=== PATIENT | male | born 1975 | race Caucasian/White ===

== ENCOUNTER 2018-04-19 10:50 | Outpatient (CLI) | payer OTHER, SELFPAY ==
[2018-04-19 11:46] LABS: INR 1.8 (1.0-3.5)
[2018-04-19 12:40] LABS: ALT 25 U/L (12-78); AST 59 U/L (15-37); Albumin 2.5 g/dL (3.4-5.0); Alkaline Phosphatase 209 U/L (46-116); Anion Gap 5.8 mmol/L (3-11); BUN 8 mg/dL (7-18); Bilirubin, Total 7.1 mg/dL (0.2-1.0); CO2 29.2 mmol/L (21.0-32.0); CREATININE 0.89 mg/dL (0.70-1.30); Calcium 8.6 mg/dL (8.5-10.1); Chloride 106 mmol/L (98-107); Glucose 118 mg/dL (70-100); Potassium 4.2 mmol/L (3.5-5.1); Sodium 141 mmol/L (136-145); Total Protein 6.2 g/dL (6.4-8.2)
[2018-04-21 08:43] LABS: Ethyl Glucuronide Screen, U Negative
== END 2018-04-19 11:10 ==
PROVIDERS: PCP Family Medicine; Visit Provider Family Medicine
DX: K70.30 Alcoholic cirrhosis of liver without ascites (principal); Z76.82 Awaiting organ transplant status
CPT/HCPCS: 36415; 80053; 80307; 85610

== ENCOUNTER 2018-04-26 11:49 | Outpatient (CLI) | payer OTHER, SELFPAY ==
[2018-04-26 13:23] LABS: INR 1.8 (1.0-3.5); Prothrombin Time 17.5 sec (9.3-10.8)
[2018-04-26 14:12] LABS: ALT 26 U/L (12-78); AST 60 U/L (15-37); Albumin 2.4 g/dL (3.4-5.0); Alkaline Phosphatase 193 U/L (46-116); Anion Gap 9.4 mmol/L (3-11); BUN 5 mg/dL (7-18); Bilirubin, Total 7.5 mg/dL (0.2-1.0); CO2 25.6 mmol/L (21.0-32.0); CREATININE 0.94 mg/dL (0.70-1.30); Calcium 8.5 mg/dL (8.5-10.1); Chloride 104 mmol/L (98-107); Glucose 170 mg/dL (70-100); Potassium 3.9 mmol/L (3.5-5.1); Sodium 139 mmol/L (136-145); Total Protein 6.1 g/dL (6.4-8.2)
[2018-04-27 16:08] LABS: Ethyl Glucuronide Screen, U Negative
== END 2018-04-26 12:09 ==
PROVIDERS: Nurse Practitioner Adult Health; PCP Family Medicine; Visit Provider Family Medicine
DX: K70.30 Alcoholic cirrhosis of liver without ascites (principal); Z76.82 Awaiting organ transplant status
CPT/HCPCS: 36415; 80053; 80307; 85610

== ENCOUNTER 2018-05-03 07:59 | Outpatient (CLI) | payer OTHER, SELFPAY ==
[2018-05-03 09:00] LABS: Prothrombin Time 17.3 sec (9.3-10.8)
[2018-05-03 09:17] LABS: INR 1.8 (1.0-3.5)
[2018-05-03 09:18] LABS: ALT 27 U/L (12-78); AST 54 U/L (15-37); Albumin 2.5 g/dL (3.4-5.0); Alkaline Phosphatase 209 U/L (46-116); BUN 6 mg/dL (7-18); Bilirubin, Total 7.5 mg/dL (0.2-1.0); CREATININE 0.95 mg/dL (0.70-1.30); Calcium 8.6 mg/dL (8.5-10.1); Chloride 104 mmol/L (98-107); Glucose 138 mg/dL (70-100); Potassium 3.5 mmol/L (3.5-5.1); Sodium 138 mmol/L (136-145); Total Protein 6.2 g/dL (6.4-8.2)
[2018-05-04 16:03] LABS: Ethyl Glucuronide Screen, U Negative
== END 2018-05-03 08:19 ==
PROVIDERS: Nurse Practitioner Adult Health; PCP Family Medicine; Visit Provider Family Medicine
DX: K70.30 Alcoholic cirrhosis of liver without ascites (principal); Z76.82 Awaiting organ transplant status
CPT/HCPCS: 36415; 80053; 80307; 85610

== ENCOUNTER 2018-05-10 08:01 | Outpatient (CLI) | payer OTHER, SELFPAY ==
[2018-05-10 08:46] LABS: ALT 20 U/L (12-78); AST 49 U/L (15-37); Albumin 2.3 g/dL (3.4-5.0); Alkaline Phosphatase 209 U/L (46-116); Anion Gap 7.5 mmol/L (3-11); BUN 5 mg/dL (7-18); Bilirubin, Total 6.8 mg/dL (0.2-1.0); CO2 27.5 mmol/L (21.0-32.0); CREATININE 0.92 mg/dL (0.70-1.30); Calcium 8.2 mg/dL (8.5-10.1); Chloride 105 mmol/L (98-107); Glucose 145 mg/dL (70-100); Sodium 140 mmol/L (136-145); Total Protein 6.7 g/dL (6.4-8.2)
[2018-05-10 08:47] LABS: INR 1.7 (1.0-3.5); Prothrombin Time 16.6 sec (9.3-10.8)
[2018-05-11 14:42] LABS: Ethyl Glucuronide Screen, U Negative
== END 2018-05-10 08:21 ==
PROVIDERS: PCP Family Medicine; Visit Provider Nurse Practitioner Adult Health
DX: K70.30 Alcoholic cirrhosis of liver without ascites (principal); Z76.82 Awaiting organ transplant status
CPT/HCPCS: 36415; 80053; 80307; 85610

== ENCOUNTER 2018-05-17 07:49 | Outpatient (CLI) | payer OTHER, SELFPAY ==
[2018-05-17 08:28] LABS: Prothrombin Time 16.5 sec (9.3-10.8)
[2018-05-17 08:35] LABS: INR 1.7 (1.0-3.5)
[2018-05-17 08:49] LABS: ALT 25 U/L (12-78); AST 50 U/L (15-37); Albumin 2.4 g/dL (3.4-5.0); Alkaline Phosphatase 198 U/L (46-116); BUN 8 mg/dL (7-18); Bilirubin, Total 6.8 mg/dL (0.2-1.0); CREATININE 0.97 mg/dL (0.70-1.30); Calcium 8.1 mg/dL (8.5-10.1); Chloride 105 mmol/L (98-107); Glucose 148 mg/dL (70-100); Potassium 3.6 mmol/L (3.5-5.1); Sodium 140 mmol/L (136-145); Total Protein 6.7 g/dL (6.4-8.2)
[2018-05-18 15:49] LABS: Ethyl Glucuronide Screen, U Negative
== END 2018-05-17 08:09 ==
PROVIDERS: PCP Family Medicine; Visit Provider Nurse Practitioner Adult Health
DX: K70.30 Alcoholic cirrhosis of liver without ascites (principal); Z76.82 Awaiting organ transplant status
CPT/HCPCS: 36415; 80053; 80307; 85610

== ENCOUNTER 2018-05-24 07:49 | Outpatient (CLI) | payer OTHER, SELFPAY ==
[2018-05-24 08:31] LABS: INR 1.8 (1.0-3.5); Prothrombin Time 16.8 sec (9.3-10.8)
[2018-05-24 08:32] LABS: ALT 25 U/L (12-78); AST 46 U/L (15-37); Albumin 2.4 g/dL (3.4-5.0); Alkaline Phosphatase 239 U/L (46-116); Anion Gap 6.9 mmol/L (3-11); BUN 4 mg/dL (7-18); CO2 29.1 mmol/L (21.0-32.0); CREATININE 0.94 mg/dL (0.70-1.30); Calcium 8.2 mg/dL (8.5-10.1); Chloride 105 mmol/L (98-107); Glucose 134 mg/dL (70-100); Potassium 3.6 mmol/L (3.5-5.1); Sodium 141 mmol/L (136-145); Total Protein 6.9 g/dL (6.4-8.2)
[2018-05-25 16:14] LABS: Ethyl Glucuronide Screen, U Negative
== END 2018-05-24 08:09 ==
PROVIDERS: PCP Family Medicine; Visit Provider Nurse Practitioner Adult Health
DX: K70.30 Alcoholic cirrhosis of liver without ascites (principal); Z76.82 Awaiting organ transplant status
CPT/HCPCS: 36415; 80053; 80307; 85610

== ENCOUNTER 2018-05-31 07:50 | Outpatient (CLI) | payer OTHER, SELFPAY ==
[2018-05-31 08:32] LABS: ALT 24 U/L (12-78); AST 51 U/L (15-37); Albumin 2.6 g/dL (3.4-5.0); Alkaline Phosphatase 221 U/L (46-116); Anion Gap 6.4 mmol/L (3-11); BUN 5 mg/dL (7-18); Bilirubin, Total 7.9 mg/dL (0.2-1.0); CO2 27.6 mmol/L (21.0-32.0); CREATININE 0.98 mg/dL (0.70-1.30); Calcium 8.7 mg/dL (8.5-10.1); Chloride 101 mmol/L (98-107); Glucose 210 mg/dL (70-100); Potassium 3.6 mmol/L (3.5-5.1); Sodium 135 mmol/L (136-145); Total Protein 7.3 g/dL (6.4-8.2)
[2018-05-31 08:44] LABS: INR 1.7 (1.0-3.5); Prothrombin Time 16.2 sec (9.3-10.8)
[2018-06-01 14:27] LABS: Ethyl Glucuronide Screen, U Negative
== END 2018-05-31 08:10 ==
PROVIDERS: PCP Family Medicine; Referring Provider Nurse Practitioner Adult Health; Visit Provider Legal Medicine
DX: K70.30 Alcoholic cirrhosis of liver without ascites (principal); Z76.82 Awaiting organ transplant status
CPT/HCPCS: 36415; 80053; 80307; 85610

== ENCOUNTER 2018-06-07 07:52 | Outpatient (CLI) | payer OTHER, SELFPAY ==
[2018-06-07 08:48] LABS: INR 1.7 (1.0-3.5); Prothrombin Time 16.1 sec (9.3-10.8)
[2018-06-07 09:33] LABS: ALT 23 U/L (12-78); AST 48 U/L (15-37); Albumin 2.5 g/dL (3.4-5.0); Alkaline Phosphatase 219 U/L (46-116); Anion Gap 6.7 mmol/L (3-11); BUN 5 mg/dL (7-18); Bilirubin, Total 7.5 mg/dL (0.2-1.0); CO2 27.3 mmol/L (21.0-32.0); CREATININE 1.03 mg/dL (0.70-1.30); Calcium 8.6 mg/dL (8.5-10.1); Chloride 104 mmol/L (98-107); Glucose 173 mg/dL (70-100); Potassium 3.6 mmol/L (3.5-5.1); Sodium 138 mmol/L (136-145); Total Protein 6.7 g/dL (6.4-8.2)
[2018-06-08 12:30] LABS: Ethyl Glucuronide Screen, U Negative
== END 2018-06-07 08:12 ==
LOC: NCHCO 07:52 → LBO 07:58
PROVIDERS: PCP Family Medicine; Visit Provider Nurse Practitioner Adult Health
DX: K70.30 Alcoholic cirrhosis of liver without ascites (principal); Z76.82 Awaiting organ transplant status
CPT/HCPCS: 36415; 80053; 80307; 85610

== ENCOUNTER 2018-06-15 07:56 | Outpatient (CLI) | payer OTHER, SELFPAY ==
[2018-06-15 09:18] LABS: AST 46 U/L (15-37); Albumin 2.3 g/dL (3.4-5.0); Alkaline Phosphatase 229 U/L (46-116); Anion Gap 8.9 mmol/L (3-11); BUN 5 mg/dL (7-18); Bilirubin, Total 6.8 mg/dL (0.2-1.0); CO2 26.1 mmol/L (21.0-32.0); CREATININE 0.99 mg/dL (0.70-1.30); Calcium 8.3 mg/dL (8.5-10.1); Chloride 105 mmol/L (98-107); Glucose 173 mg/dL (70-100); Potassium 3.9 mmol/L (3.5-5.1); Sodium 140 mmol/L (136-145); Total Protein 6.3 g/dL (6.4-8.2)
[2018-06-15 09:23] LABS: ALT 23 U/L (12-78)
[2018-06-16 14:23] LABS: Ethyl Glucuronide Screen, U Negative
== END 2018-06-15 08:16 ==
PROVIDERS: PCP Family Medicine; Visit Provider Nurse Practitioner Adult Health
DX: K70.30 Alcoholic cirrhosis of liver without ascites (principal); Z76.82 Awaiting organ transplant status
CPT/HCPCS: 36415; 80053; 80307

== ENCOUNTER 2018-06-21 08:08 | Outpatient (CLI) | payer OTHER, SELFPAY ==
[2018-06-21 09:13] LABS: INR 1.6 (1.0-3.5); Prothrombin Time 15.6 sec (9.3-10.8)
[2018-06-21 10:51] LABS: ALT 21 U/L (12-78); AST 42 U/L (15-37); Albumin 2.5 g/dL (3.4-5.0); Alkaline Phosphatase 216 U/L (46-116); Anion Gap 8.2 mmol/L (3-11); BUN 8 mg/dL (7-18); Bilirubin, Total 7.1 mg/dL (0.2-1.0); CO2 25.8 mmol/L (21.0-32.0); CREATININE 1.02 mg/dL (0.70-1.30); Calcium 8.6 mg/dL (8.5-10.1); Chloride 105 mmol/L (98-107); Glucose 163 mg/dL (70-100); Potassium 3.7 mmol/L (3.5-5.1); Sodium 139 mmol/L (136-145); Total Protein 6.4 g/dL (6.4-8.2)
[2018-06-22 14:58] LABS: Ethyl Glucuronide Screen, U Negative
== END 2018-06-21 08:28 ==
PROVIDERS: PCP Family Medicine; Visit Provider Nurse Practitioner Adult Health
DX: K70.30 Alcoholic cirrhosis of liver without ascites (principal); Z76.82 Awaiting organ transplant status
CPT/HCPCS: 36415; 80053; 80307; 85610

== ENCOUNTER 2018-06-28 07:52 | Outpatient (CLI) | payer OTHER, SELFPAY ==
[2018-06-28 08:41] LABS: ALT 26 U/L (12-78); AST 49 U/L (15-37); Albumin 2.5 g/dL (3.4-5.0); Alkaline Phosphatase 201 U/L (46-116); Anion Gap 7.3 mmol/L (3-11); BUN 6 mg/dL (7-18); Bilirubin, Total 6.8 mg/dL (0.2-1.0); CO2 27.7 mmol/L (21.0-32.0); CREATININE 0.95 mg/dL (0.70-1.30); Calcium 8.6 mg/dL (8.5-10.1); Chloride 105 mmol/L (98-107); Glucose 111 mg/dL (70-100); INR 1.6 (1.0-3.5); Potassium 3.8 mmol/L (3.5-5.1); Prothrombin Time 15.2 sec (9.3-10.8); Sodium 140 mmol/L (136-145); Total Protein 6.7 g/dL (6.4-8.2)
[2018-06-29 14:30] LABS: Ethyl Glucuronide Screen, U Negative
== END 2018-06-28 08:12 ==
PROVIDERS: PCP Family Medicine; Visit Provider Nurse Practitioner Adult Health
DX: K70.30 Alcoholic cirrhosis of liver without ascites (principal); Z76.82 Awaiting organ transplant status
CPT/HCPCS: 36415; 80053; 80307; 85610

== ENCOUNTER 2018-07-05 07:55 | Outpatient (CLI) | payer OTHER, SELFPAY ==
[2018-07-05 08:33] LABS: INR 1.6 (1.0-3.5); Prothrombin Time 15.7 sec (9.3-10.8)
[2018-07-05 09:30] LABS: ALT 26 U/L (12-78); AST 46 U/L (15-37); Albumin 2.6 g/dL (3.4-5.0); Alkaline Phosphatase 246 U/L (46-116); Anion Gap 9.4 mmol/L (3-11); BUN 8 mg/dL (7-18); Bilirubin, Total 5.9 mg/dL (0.2-1.0); CO2 26.6 mmol/L (21.0-32.0); CREATININE 0.95 mg/dL (0.70-1.30); Calcium 8.7 mg/dL (8.5-10.1); Chloride 104 mmol/L (98-107); Glucose 157 mg/dL (70-100); Potassium 3.8 mmol/L (3.5-5.1); Sodium 140 mmol/L (136-145); Total Protein 6.6 g/dL (6.4-8.2)
[2018-07-06 16:15] LABS: Ethyl Glucuronide Screen, U Negative
== END 2018-07-05 08:15 ==
PROVIDERS: PCP Family Medicine; Visit Provider Nurse Practitioner Adult Health
DX: K70.30 Alcoholic cirrhosis of liver without ascites (principal); Z76.82 Awaiting organ transplant status
CPT/HCPCS: 36415; 80053; 80307; 85610

== ENCOUNTER 2018-07-19 07:53 | Outpatient (CLI) | payer OTHER, SELFPAY ==
[2018-07-19 08:39] LABS: INR 1.6 (1.0-3.5)
[2018-07-19 09:33] LABS: ALT 24 U/L (12-78); AST 52 U/L (15-37); Albumin 2.6 g/dL (3.4-5.0); Alkaline Phosphatase 194 U/L (46-116); Anion Gap 10.7 mmol/L (3-11); BUN 6 mg/dL (7-18); Bilirubin, Total 8.6 mg/dL (0.2-1.0); CO2 26.3 mmol/L (21.0-32.0); CREATININE 0.93 mg/dL (0.70-1.30); Calcium 8.8 mg/dL (8.5-10.1); Chloride 104 mmol/L (98-107); Glucose 159 mg/dL (70-100); Potassium 4.1 mmol/L (3.5-5.1); Sodium 141 mmol/L (136-145); Total Protein 6.6 g/dL (6.4-8.2)
[2018-07-20 16:32] LABS: Ethyl Glucuronide Screen, U Negative
== END 2018-07-19 08:13 ==
PROVIDERS: PCP Family Medicine; Visit Provider Nurse Practitioner Adult Health
DX: K70.30 Alcoholic cirrhosis of liver without ascites (principal); Z76.82 Awaiting organ transplant status
CPT/HCPCS: 36415; 80053; 80307; 85610

== ENCOUNTER 2018-07-25 08:26 | Outpatient (CLI) | payer OTHER, SELFPAY ==
[2018-07-25 09:04] LABS: INR 1.6 (1.0-3.5); Prothrombin Time 16.3 sec (9.3-11.0)
[2018-07-25 10:54] LABS: ALT 23 U/L (12-78); AST 49 U/L (15-37); Albumin 2.5 g/dL (3.4-5.0); Alkaline Phosphatase 231 U/L (46-116); Anion Gap 7.2 mmol/L (3-11); BUN 8 mg/dL (7-18); Bilirubin, Total 5.8 mg/dL (0.2-1.0); CO2 27.8 mmol/L (21.0-32.0); CREATININE 0.94 mg/dL (0.70-1.30); Calcium 8.6 mg/dL (8.5-10.1); Chloride 105 mmol/L (98-107); Glucose 98 mg/dL (70-100); Potassium 3.9 mmol/L (3.5-5.1); Sodium 140 mmol/L (136-145); Total Protein 6.2 g/dL (6.4-8.2)
[2018-07-27 12:20] LABS: Ethyl Glucuronide Screen, U Negative
== END 2018-07-25 08:46 ==
PROVIDERS: PCP Family Medicine; Visit Provider Nurse Practitioner Adult Health
DX: K70.30 Alcoholic cirrhosis of liver without ascites (principal); Z76.82 Awaiting organ transplant status
CPT/HCPCS: 36415; 80053; 80307; 85610

== ENCOUNTER 2018-08-09 07:58 | Outpatient (CLI) | payer OTHER, SELFPAY ==
[2018-08-09 08:38] LABS: INR 1.6 (0.9-1.1); Prothrombin Time 16.1 sec (9.3-11.0)
[2018-08-09 08:39] LABS: ALT 20 U/L (12-78); AST 41 U/L (15-37); Albumin 2.4 g/dL (3.4-5.0); Alkaline Phosphatase 196 U/L (46-116); BUN 6 mg/dL (7-18); Bilirubin, Total 6.6 mg/dL (0.2-1.0); CREATININE 1.03 mg/dL (0.70-1.30); Calcium 8.6 mg/dL (8.5-10.1); Chloride 106 mmol/L (98-107); Glucose 129 mg/dL (70-100); Potassium 3.7 mmol/L (3.5-5.1); Sodium 141 mmol/L (136-145); Total Protein 6.3 g/dL (6.4-8.2)
[2018-08-10 17:16] LABS: Ethyl Glucuronide Screen, U Negative
== END 2018-08-09 08:18 ==
PROVIDERS: PCP Family Medicine; Visit Provider Nurse Practitioner Adult Health
DX: K70.30 Alcoholic cirrhosis of liver without ascites (principal); Z79.82 Long term (current) use of aspirin
CPT/HCPCS: 36415; 80053; 80307; 85610

== ENCOUNTER 2018-08-16 07:55 | Outpatient (CLI) | payer OTHER, SELFPAY ==
[2018-08-16 09:10] LABS: INR 1.7 (0.9-1.1); Prothrombin Time 17.2 sec (9.3-11.0)
[2018-08-16 09:31] LABS: ALT 21 U/L (12-78); AST 40 U/L (15-37); Albumin 2.4 g/dL (3.4-5.0); Alkaline Phosphatase 194 U/L (46-116); Anion Gap 8.2 mmol/L (3-11); BUN 7 mg/dL (7-18); CO2 26.8 mmol/L (21.0-32.0); CREATININE 1.11 mg/dL (0.70-1.30); Calcium 8.3 mg/dL (8.5-10.1); Chloride 105 mmol/L (98-107); Glucose 164 mg/dL (70-100); Potassium 3.9 mmol/L (3.5-5.1); Sodium 140 mmol/L (136-145); Total Protein 6.2 g/dL (6.4-8.2)
[2018-08-16 09:33] LABS: Bilirubin, Total 8.8 mg/dL (0.2-1.0)
[2018-08-17 16:22] LABS: Ethyl Glucuronide Screen, U Negative
== END 2018-08-16 08:15 ==
PROVIDERS: PCP Family Medicine; Visit Provider Nurse Practitioner Adult Health
DX: K70.30 Alcoholic cirrhosis of liver without ascites (principal); Z76.82 Awaiting organ transplant status
CPT/HCPCS: 36415; 80053; 80307; 85610

== ENCOUNTER 2018-08-23 11:15 | Outpatient (CLI) | payer OTHER, SELFPAY ==
[2018-08-23 12:06] LABS: INR 1.6 (0.9-1.1); Prothrombin Time 16.2 sec (9.3-11.0)
[2018-08-23 12:52] LABS: ALT 22 U/L (12-78); AST 44 U/L (15-37); Albumin 2.5 g/dL (3.4-5.0); Alkaline Phosphatase 253 U/L (46-116); Anion Gap 5.1 mmol/L (3-11); BUN 6 mg/dL (7-18); Bilirubin, Total 6.5 mg/dL (0.2-1.0); CO2 27.9 mmol/L (21.0-32.0); CREATININE 1.08 mg/dL (0.70-1.30); Calcium 8.2 mg/dL (8.5-10.1); Chloride 106 mmol/L (98-107); Glucose 100 mg/dL (70-100); Potassium 3.7 mmol/L (3.5-5.1); Sodium 139 mmol/L (136-145); Total Protein 6.5 g/dL (6.4-8.2)
[2018-08-24 15:50] LABS: Ethyl Glucuronide Screen, U Negative
== END 2018-08-23 11:35 ==
PROVIDERS: PCP Family Medicine; Visit Provider Nurse Practitioner Adult Health
DX: K70.30 Alcoholic cirrhosis of liver without ascites (principal); Z76.82 Awaiting organ transplant status
CPT/HCPCS: 36415; 80053; 80307; 85610

== ENCOUNTER 2018-08-30 01:36 | Outpatient (CLI) | payer OTHER, SELFPAY ==
[2018-08-30 08:43] LABS: INR 1.6 (0.9-1.1); Prothrombin Time 16.1 sec (9.3-11.0)
[2018-08-30 09:52] LABS: ALT 21 U/L (12-78); AST 42 U/L (15-37); Albumin 2.5 g/dL (3.4-5.0); Alkaline Phosphatase 228 U/L (46-116); Anion Gap 7.9 mmol/L (3-11); BUN 5 mg/dL (7-18); CO2 27.1 mmol/L (21.0-32.0); CREATININE 1.04 mg/dL (0.70-1.30); Calcium 8.5 mg/dL (8.5-10.1); Chloride 106 mmol/L (98-107); Glucose 109 mg/dL (70-100); Potassium 3.9 mmol/L (3.5-5.1); Sodium 141 mmol/L (136-145); Total Protein 6.4 g/dL (6.4-8.2)
[2018-09-01 13:39] LABS: Ethyl Glucuronide Screen, U Negative
== END 2018-08-30 01:56 ==
PROVIDERS: PCP Family Medicine; Visit Provider Nurse Practitioner Adult Health
DX: K70.30 Alcoholic cirrhosis of liver without ascites (principal); Z76.82 Awaiting organ transplant status
CPT/HCPCS: 36415; 80053; 80307; 85610

== ENCOUNTER 2018-09-06 02:08 | Outpatient (CLI) | payer OTHER, SELFPAY ==
[2018-09-06 08:28] LABS: INR 1.6 (0.9-1.1); Prothrombin Time 16.1 sec (9.3-11.0)
[2018-09-06 08:40] LABS: ALT 26 U/L (12-78); AST 50 U/L (15-37); Albumin 2.6 g/dL (3.4-5.0); Alkaline Phosphatase 240 U/L (46-116); Anion Gap 8.4 mmol/L (3-11); BUN 6 mg/dL (7-18); Bilirubin, Total 8.2 mg/dL (0.2-1.0); CO2 26.6 mmol/L (21.0-32.0); CREATININE 1.12 mg/dL (0.70-1.30); Calcium 8.5 mg/dL (8.5-10.1); Chloride 105 mmol/L (98-107); Glucose 203 mg/dL (70-100); Potassium 3.8 mmol/L (3.5-5.1); Sodium 140 mmol/L (136-145); Total Protein 6.8 g/dL (6.4-8.2)
[2018-09-07 16:25] LABS: Ethyl Glucuronide Screen, U Negative
== END 2018-09-06 02:28 ==
PROVIDERS: PCP Family Medicine; Visit Provider Nurse Practitioner Adult Health
DX: K70.30 Alcoholic cirrhosis of liver without ascites (principal); Z76.82 Awaiting organ transplant status
CPT/HCPCS: 36415; 80053; 80307; 85610

== ENCOUNTER 2018-09-13 06:54 | Outpatient (CLI) | payer OTHER, SELFPAY ==
[2018-09-13 08:25] LABS: INR 1.5 (0.9-1.1); Prothrombin Time 15.5 sec (9.3-11.0)
[2018-09-13 09:37] LABS: ALT 23 U/L (12-78); AST 35 U/L (15-37); Albumin 2.7 g/dL (3.4-5.0); Alkaline Phosphatase 223 U/L (46-116); Anion Gap 8.7 mmol/L (3-11); BUN 7 mg/dL (7-18); CO2 26.3 mmol/L (21.0-32.0); CREATININE 1.11 mg/dL (0.70-1.30); Calcium 8.6 mg/dL (8.5-10.1); Chloride 104 mmol/L (98-107); Glucose 176 mg/dL (70-100); Potassium 3.9 mmol/L (3.5-5.1); Sodium 139 mmol/L (136-145); Total Protein 6.8 g/dL (6.4-8.2)
[2018-09-14 16:55] LABS: Ethyl Glucuronide Screen, U Negative
== END 2018-09-13 07:14 ==
PROVIDERS: PCP Family Medicine; Visit Provider Nurse Practitioner Adult Health
DX: K70.30 Alcoholic cirrhosis of liver without ascites (principal); Z76.82 Awaiting organ transplant status
CPT/HCPCS: 36415; 80053; 80307; 85610

== ENCOUNTER 2018-09-20 06:55 | Outpatient (CLI) | payer OTHER, SELFPAY ==
[2018-09-20 09:00] LABS: INR 1.5 (0.9-1.1); Prothrombin Time 15.5 sec (9.3-11.0)
[2018-09-20 09:17] LABS: ALT 26 U/L (12-78); AST 50 U/L (15-37); Albumin 2.6 g/dL (3.4-5.0); Alkaline Phosphatase 235 U/L (46-116); Anion Gap 7.3 mmol/L (3-11); BUN 7 mg/dL (7-18); Bilirubin, Total 6.6 mg/dL (0.2-1.0); CO2 29.7 mmol/L (21.0-32.0); CREATININE 1.09 mg/dL (0.70-1.30); Calcium 8.6 mg/dL (8.5-10.1); Chloride 104 mmol/L (98-107); Glucose 162 mg/dL (70-100); Potassium 3.8 mmol/L (3.5-5.1); Sodium 141 mmol/L (136-145); Total Protein 6.8 g/dL (6.4-8.2)
[2018-09-21 13:31] LABS: Ethyl Glucuronide Screen, U Negative
== END 2018-09-20 07:15 ==
PROVIDERS: PCP Family Medicine; Visit Provider Nurse Practitioner Adult Health
DX: K70.30 Alcoholic cirrhosis of liver without ascites (principal); Z76.82 Awaiting organ transplant status
CPT/HCPCS: 36415; 80053; 80307; 85610

== ENCOUNTER 2018-09-27 07:19 | Outpatient (CLI) | payer OTHER, SELFPAY ==
[2018-09-27 08:15] LABS: INR 1.6 (0.9-1.1); Prothrombin Time 15.8 sec (9.3-11.0)
[2018-09-27 08:34] LABS: ALT 25 U/L (12-78); AST 50 U/L (15-37); Albumin 2.8 g/dL (3.4-5.0); Alkaline Phosphatase 216 U/L (46-116); Anion Gap 8.5 mmol/L (3-11); BUN 8 mg/dL (7-18); Bilirubin, Total 9.3 mg/dL (0.2-1.0); CO2 28.5 mmol/L (21.0-32.0); CREATININE 1.01 mg/dL (0.70-1.30); Calcium 8.5 mg/dL (8.5-10.1); Chloride 104 mmol/L (98-107); Glucose 163 mg/dL (70-100); Potassium 3.9 mmol/L (3.5-5.1); Sodium 141 mmol/L (136-145); Total Protein 6.6 g/dL (6.4-8.2)
[2018-09-28 20:19] LABS: Ethyl Glucuronide Screen, U Negative
== END 2018-09-27 07:39 ==
PROVIDERS: PCP Family Medicine; Visit Provider Nurse Practitioner Adult Health
DX: K70.30 Alcoholic cirrhosis of liver without ascites (principal); Z76.82 Awaiting organ transplant status
CPT/HCPCS: 36415; 80053; 80307; 85610

== ENCOUNTER 2018-10-04 01:26 | Outpatient (CLI) | payer OTHER, SELFPAY ==
[2018-10-04 08:09] LABS: INR 1.5 (0.9-1.1); Prothrombin Time 15.5 sec (9.3-11.0)
[2018-10-04 08:50] LABS: ALT 27 U/L (12-78); AST 48 U/L (15-37); Albumin 2.6 g/dL (3.4-5.0); Alkaline Phosphatase 214 U/L (46-116); Anion Gap 6.4 mmol/L (3-11); BUN 6 mg/dL (7-18); CO2 29.6 mmol/L (21.0-32.0); CREATININE 0.95 mg/dL (0.70-1.30); Calcium 8.4 mg/dL (8.5-10.1); Chloride 105 mmol/L (98-107); Glucose 111 mg/dL (70-100); Potassium 3.8 mmol/L (3.5-5.1); Sodium 141 mmol/L (136-145); Total Protein 6.2 g/dL (6.4-8.2)
[2018-10-05 16:13] LABS: Ethyl Glucuronide Screen, U Negative
== END 2018-10-04 01:46 ==
PROVIDERS: PCP Family Medicine; Visit Provider Nurse Practitioner Adult Health
DX: K70.30 Alcoholic cirrhosis of liver without ascites (principal); Z76.82 Awaiting organ transplant status
CPT/HCPCS: 36415; 80053; 80307; 85610

== ENCOUNTER 2018-10-11 02:42 | Outpatient (CLI) | payer OTHER, SELFPAY ==
[2018-10-11 09:44] LABS: ALT 29 U/L (12-78); AST 51 U/L (15-37); Albumin 2.8 g/dL (3.4-5.0); Alkaline Phosphatase 214 U/L (46-116); Anion Gap 5.6 mmol/L (3-11); BUN 7 mg/dL (7-18); Bilirubin, Total 7.3 mg/dL (0.2-1.0); CO2 31.4 mmol/L (21.0-32.0); CREATININE 1.01 mg/dL (0.70-1.30); Calcium 9.2 mg/dL (8.5-10.1); Chloride 104 mmol/L (98-107); Glucose 173 mg/dL (70-100); Potassium 3.7 mmol/L (3.5-5.1); Sodium 141 mmol/L (136-145); Total Protein 6.4 g/dL (6.4-8.2)
[2018-10-11 09:47] LABS: INR 1.6 (0.9-1.1); Prothrombin Time 16.1 sec (9.3-11.0)
[2018-10-12 15:44] LABS: Ethyl Glucuronide Screen, U Negative
== END 2018-10-11 03:02 ==
PROVIDERS: PCP Family Medicine; Visit Provider Nurse Practitioner Adult Health
DX: K70.30 Alcoholic cirrhosis of liver without ascites (principal); Z76.82 Awaiting organ transplant status
CPT/HCPCS: 36415; 80053; 80307; 85610

== ENCOUNTER 2018-10-18 02:00 | Outpatient (CLI) | payer OTHER, SELFPAY ==
[2018-10-18 08:29] LABS: ALT 20 U/L (12-78); AST 45 U/L (15-37); Albumin 2.5 g/dL (3.4-5.0); Alkaline Phosphatase 238 U/L (46-116); Anion Gap 7.1 mmol/L (3-11); BUN 8 mg/dL (7-18); Bilirubin, Total 5.8 mg/dL (0.2-1.0); CO2 26.9 mmol/L (21.0-32.0); CREATININE 0.96 mg/dL (0.70-1.30); Calcium 8.6 mg/dL (8.5-10.1); Chloride 106 mmol/L (98-107); Glucose 152 mg/dL (70-100); Potassium 3.7 mmol/L (3.5-5.1); Sodium 140 mmol/L (136-145)
[2018-10-18 08:46] LABS: Prothrombin Time 16.7 sec (9.3-11.0)
[2018-10-18 09:02] LABS: INR 1.7 (0.9-1.1)
[2018-10-19 13:30] LABS: Ethyl Glucuronide Screen, U Negative
== END 2018-10-18 02:20 ==
PROVIDERS: PCP Family Medicine; Visit Provider Nurse Practitioner Adult Health
DX: K70.30 Alcoholic cirrhosis of liver without ascites (principal); Z76.82 Awaiting organ transplant status
CPT/HCPCS: 36415; 80053; 80307; 85610

== ENCOUNTER 2018-10-25 07:53 | Outpatient (CLI) | payer OTHER, SELFPAY ==
[2018-10-25 08:26] LABS: Prothrombin Time 16.8 sec (9.3-11.0)
[2018-10-25 08:54] LABS: INR 1.7 (0.9-1.1)
[2018-10-25 09:51] LABS: ALT 24 U/L (12-78); AST 41 U/L (15-37); Albumin 2.4 g/dL (3.4-5.0); Alkaline Phosphatase 215 U/L (46-116); Anion Gap 6.1 mmol/L (3-11); BUN 6 mg/dL (7-18); CO2 27.9 mmol/L (21.0-32.0); CREATININE 1.05 mg/dL (0.70-1.30); Calcium 8.8 mg/dL (8.5-10.1); Chloride 108 mmol/L (98-107); Glucose 182 mg/dL (70-100); Potassium 3.8 mmol/L (3.5-5.1); Sodium 142 mmol/L (136-145); Total Protein 5.7 g/dL (6.4-8.2)
[2018-10-26 16:32] LABS: Ethyl Glucuronide Screen, U Negative
== END 2018-10-25 08:13 ==
PROVIDERS: PCP Family Medicine; Visit Provider Nurse Practitioner Adult Health
DX: K70.30 Alcoholic cirrhosis of liver without ascites (principal); Z76.82 Awaiting organ transplant status
CPT/HCPCS: 36415; 80053; 80307; 85610

== ENCOUNTER 2018-11-01 07:53 | Outpatient (CLI) | payer OTHER, SELFPAY ==
[2018-11-01 09:45] LABS: INR 1.7 (0.9-1.1); Prothrombin Time 16.6 sec (9.3-11.0)
[2018-11-01 09:46] LABS: ALT 26 U/L (12-78); AST 41 U/L (15-37); Albumin 2.6 g/dL (3.4-5.0); Alkaline Phosphatase 242 U/L (46-116); Anion Gap 6.6 mmol/L (3-11); BUN 7 mg/dL (7-18); Bilirubin, Total 6.8 mg/dL (0.2-1.0); CO2 29.4 mmol/L (21.0-32.0); CREATININE 1.06 mg/dL (0.70-1.30); Calcium 8.7 mg/dL (8.5-10.1); Chloride 105 mmol/L (98-107); Glucose 130 mg/dL (70-100); Potassium 3.9 mmol/L (3.5-5.1); Sodium 141 mmol/L (136-145); Total Protein 6.3 g/dL (6.4-8.2)
[2018-11-02 15:11] LABS: Ethyl Glucuronide Screen, U Negative
== END 2018-11-01 08:13 ==
PROVIDERS: PCP Family Medicine; Visit Provider Nurse Practitioner Adult Health
DX: K70.30 Alcoholic cirrhosis of liver without ascites (principal); Z76.82 Awaiting organ transplant status
CPT/HCPCS: 36415; 80053; 80307; 85610

== ENCOUNTER 2018-11-08 07:51 | Outpatient (CLI) | payer OTHER, SELFPAY ==
[2018-11-08 08:24] LABS: INR 1.6 (0.9-1.1); Prothrombin Time 16.4 sec (9.3-11.0)
[2018-11-08 09:07] LABS: ALT 24 U/L (12-78); AST 48 U/L (15-37); Albumin 2.6 g/dL (3.4-5.0); Alkaline Phosphatase 220 U/L (46-116); Anion Gap 7.6 mmol/L (3-11); BUN 6 mg/dL (7-18); Bilirubin, Total 6.7 mg/dL (0.2-1.0); CO2 26.4 mmol/L (21.0-32.0); CREATININE 1.12 mg/dL (0.70-1.30); Chloride 104 mmol/L (98-107); Glucose 193 mg/dL (70-100); Potassium 3.7 mmol/L (3.5-5.1); Sodium 138 mmol/L (136-145)
[2018-11-08 09:13] LABS: Calcium 8.4 mg/dL (8.5-10.1)
[2018-11-09 13:26] LABS: Ethyl Glucuronide Screen, U Negative
== END 2018-11-08 08:11 ==
PROVIDERS: PCP Family Medicine; Visit Provider Nurse Practitioner Adult Health
DX: K70.30 Alcoholic cirrhosis of liver without ascites (principal); Z76.82 Awaiting organ transplant status
CPT/HCPCS: 36415; 80053; 80307; 85610

== ENCOUNTER 2018-11-15 01:24 | Outpatient (CLI) | payer OTHER, SELFPAY ==
[2018-11-15 08:52] LABS: INR 1.6 (0.9-1.1); Prothrombin Time 16.1 sec (9.3-11.0)
[2018-11-15 09:07] LABS: ALT 27 U/L (12-78); AST 44 U/L (15-37); Albumin 2.5 g/dL (3.4-5.0); Alkaline Phosphatase 218 U/L (46-116); Anion Gap 6.6 mmol/L (3-11); BUN 8 mg/dL (7-18); Bilirubin, Total 7.4 mg/dL (0.2-1.0); CO2 28.4 mmol/L (21.0-32.0); CREATININE 1.07 mg/dL (0.70-1.30); Calcium 8.9 mg/dL (8.5-10.1); Chloride 105 mmol/L (98-107); Glucose 179 mg/dL (70-100); Potassium 3.9 mmol/L (3.5-5.1); Sodium 140 mmol/L (136-145); Total Protein 6.2 g/dL (6.4-8.2)
[2018-11-16 16:49] LABS: Ethyl Glucuronide Screen, U Negative
== END 2018-11-15 01:44 ==
PROVIDERS: PCP Family Medicine; Visit Provider Nurse Practitioner Adult Health
DX: K70.30 Alcoholic cirrhosis of liver without ascites (principal); Z76.82 Awaiting organ transplant status
CPT/HCPCS: 36415; 80053; 80307; 85610

== ENCOUNTER 2018-11-22 06:57 | Outpatient (CLI) | payer OTHER, SELFPAY ==
[2018-11-22 08:25] LABS: INR 1.6 (0.9-1.1); Prothrombin Time 16.4 sec (9.3-11.0)
[2018-11-22 09:06] LABS: ALT 23 U/L (12-78); AST 42 U/L (15-37); Albumin 2.6 g/dL (3.4-5.0); Alkaline Phosphatase 233 U/L (46-116); Anion Gap 7.1 mmol/L (3-11); BUN 6 mg/dL (7-18); Bilirubin, Total 6.7 mg/dL (0.2-1.0); CO2 26.9 mmol/L (21.0-32.0); CREATININE 1.17 mg/dL (0.70-1.30); Calcium 8.8 mg/dL (8.5-10.1); Chloride 104 mmol/L (98-107); Glucose 203 mg/dL (70-100); Potassium 3.9 mmol/L (3.5-5.1); Sodium 138 mmol/L (136-145)
[2018-11-23 14:23] LABS: Ethyl Glucuronide Screen, U Negative
== END 2018-11-22 07:17 ==
PROVIDERS: PCP Family Medicine; Visit Provider Nurse Practitioner Adult Health
DX: K70.30 Alcoholic cirrhosis of liver without ascites (principal); Z76.82 Awaiting organ transplant status
CPT/HCPCS: 36415; 80053; 80307; 85610

== ENCOUNTER 2018-11-29 01:37 | Outpatient (CLI) | payer OTHER, SELFPAY ==
[2018-11-29 08:17] LABS: INR 1.6 (0.9-1.1); Prothrombin Time 15.9 sec (9.3-11.0)
[2018-11-29 09:11] LABS: ALT 25 U/L (12-78); AST 42 U/L (15-37); Albumin 2.6 g/dL (3.4-5.0); Alkaline Phosphatase 242 U/L (46-116); Anion Gap 6.5 mmol/L (3-11); BUN 7 mg/dL (7-18); Bilirubin, Total 6.6 mg/dL (0.2-1.0); CO2 27.5 mmol/L (21.0-32.0); CREATININE 1.15 mg/dL (0.70-1.30); Calcium 8.6 mg/dL (8.5-10.1); Chloride 105 mmol/L (98-107); Glucose 186 mg/dL (70-100); Potassium 3.8 mmol/L (3.5-5.1); Sodium 139 mmol/L (136-145); Total Protein 6.4 g/dL (6.4-8.2)
[2018-11-30 16:52] LABS: Ethyl Glucuronide Screen, U Negative
== END 2018-11-29 01:57 ==
PROVIDERS: PCP Family Medicine; Visit Provider Nurse Practitioner Adult Health
DX: K70.30 Alcoholic cirrhosis of liver without ascites (principal); Z76.82 Awaiting organ transplant status
CPT/HCPCS: 36415; 80053; 80307; 85610

== ENCOUNTER 2018-12-06 02:39 | Outpatient (CLI) | payer OTHER, SELFPAY ==
[2018-12-06 08:19] LABS: INR 1.5 (0.9-1.1); Prothrombin Time 15.2 sec (9.3-11.0)
[2018-12-06 09:03] LABS: ALT 27 U/L (12-78); AST 46 U/L (15-37); Albumin 2.8 g/dL (3.4-5.0); Alkaline Phosphatase 243 U/L (46-116); Anion Gap 7.4 mmol/L (3-11); BUN 5 mg/dL (7-18); Bilirubin, Total 7.7 mg/dL (0.2-1.0); CO2 27.6 mmol/L (21.0-32.0); CREATININE 1.02 mg/dL (0.70-1.30); Calcium 8.4 mg/dL (8.5-10.1); Chloride 106 mmol/L (98-107); Glucose 87 mg/dL (70-100); Potassium 3.8 mmol/L (3.5-5.1); Sodium 141 mmol/L (136-145); Total Protein 6.6 g/dL (6.4-8.2)
[2018-12-08 20:32] LABS: Ethyl Glucuronide Screen, U Negative
== END 2018-12-06 02:59 ==
PROVIDERS: PCP Family Medicine; Visit Provider Nurse Practitioner Adult Health
DX: K70.30 Alcoholic cirrhosis of liver without ascites (principal); Z76.82 Awaiting organ transplant status
CPT/HCPCS: 36415; 80053; 80307; 85610

== ENCOUNTER 2018-12-13 06:56 | Outpatient (CLI) | payer OTHER, SELFPAY ==
[2018-12-13 08:20] LABS: INR 1.5 (0.9-1.1); Prothrombin Time 15.5 sec (9.3-11.0)
[2018-12-13 09:07] LABS: ALT 23 U/L (12-78); AST 40 U/L (15-37); Albumin 2.5 g/dL (3.4-5.0); Alkaline Phosphatase 218 U/L (46-116); Anion Gap 9.2 mmol/L (3-11); BUN 8 mg/dL (7-18); Bilirubin, Total 6.4 mg/dL (0.2-1.0); CO2 24.8 mmol/L (21.0-32.0); CREATININE 1.08 mg/dL (0.70-1.30); Chloride 106 mmol/L (98-107); Glucose 184 mg/dL (70-100); Potassium 3.8 mmol/L (3.5-5.1); Sodium 140 mmol/L (136-145); Total Protein 5.9 g/dL (6.4-8.2)
[2018-12-13 09:08] LABS: Calcium 8.1 mg/dL (8.5-10.1)
[2018-12-14 12:54] LABS: Ethyl Glucuronide Screen, U Negative
== END 2018-12-13 07:16 ==
PROVIDERS: PCP Family Medicine; Visit Provider Nurse Practitioner Adult Health
DX: K70.30 Alcoholic cirrhosis of liver without ascites (principal); Z76.82 Awaiting organ transplant status
CPT/HCPCS: 36415; 80053; 80307; 85610

== ENCOUNTER 2018-12-20 07:49 | Outpatient (CLI) | payer OTHER, SELFPAY ==
[2018-12-20 09:07] LABS: INR 1.5 (0.9-1.1); Prothrombin Time 15.4 sec (9.3-11.0)
[2018-12-20 09:20] LABS: ALT 24 U/L (12-78); AST 43 U/L (15-37); Albumin 2.8 g/dL (3.4-5.0); Alkaline Phosphatase 217 U/L (46-116); Anion Gap 8.9 mmol/L (3-11); BUN 8 mg/dL (7-18); Bilirubin, Total 7.2 mg/dL (0.2-1.0); CO2 27.1 mmol/L (21.0-32.0); CREATININE 1.03 mg/dL (0.70-1.30); Calcium 8.5 mg/dL (8.5-10.1); Chloride 105 mmol/L (98-107); Glucose 84 mg/dL (70-100); Potassium 3.9 mmol/L (3.5-5.1); Sodium 141 mmol/L (136-145); Total Protein 6.3 g/dL (6.4-8.2)
[2018-12-21 15:14] LABS: Ethyl Glucuronide Screen, U Negative
== END 2018-12-20 08:09 ==
PROVIDERS: PCP Family Medicine; Visit Provider Nurse Practitioner Adult Health
DX: K70.30 Alcoholic cirrhosis of liver without ascites (principal); Z76.82 Awaiting organ transplant status
CPT/HCPCS: 36415; 80053; 80307; 85610

== ENCOUNTER 2018-12-27 02:11 | Outpatient (CLI) | payer OTHER, SELFPAY ==
[2018-12-27 08:42] LABS: INR 1.6 (0.9-1.1)
[2018-12-27 08:43] LABS: ALT 21 U/L (12-78); AST 46 U/L (15-37); Albumin 2.6 g/dL (3.4-5.0); Alkaline Phosphatase 231 U/L (46-116); Anion Gap 5.7 mmol/L (3-11); BUN 9 mg/dL (7-18); Bilirubin, Total 7.1 mg/dL (0.2-1.0); CO2 28.3 mmol/L (21.0-32.0); CREATININE 0.95 mg/dL (0.70-1.30); Calcium 8.2 mg/dL (8.5-10.1); Chloride 107 mmol/L (98-107); Glucose 130 mg/dL (70-100); Potassium 3.6 mmol/L (3.5-5.1); Sodium 141 mmol/L (136-145); Total Protein 6.4 g/dL (6.4-8.2)
[2018-12-28 15:23] LABS: Ethyl Glucuronide Screen, U Negative
== END 2018-12-27 02:31 ==
PROVIDERS: PCP Family Medicine; Visit Provider Nurse Practitioner Adult Health
DX: K70.30 Alcoholic cirrhosis of liver without ascites (principal); Z76.82 Awaiting organ transplant status
CPT/HCPCS: 36415; 80053; 80307; 85610

== ENCOUNTER 2019-01-03 07:57 | Outpatient (CLI) | payer OTHER, SELFPAY ==
[2019-01-03 08:41] LABS: INR 1.8 (0.9-1.1); Prothrombin Time 17.8 sec (9.3-11.0)
[2019-01-03 09:27] LABS: ALT 26 U/L (12-78); AST 42 U/L (15-37); Albumin 2.4 g/dL (3.4-5.0); Alkaline Phosphatase 210 U/L (46-116); Anion Gap 7.2 mmol/L (3-11); BUN 8 mg/dL (7-18); Bilirubin, Total 4.9 mg/dL (0.2-1.0); CO2 27.8 mmol/L (21.0-32.0); CREATININE 1.01 mg/dL (0.70-1.30); Calcium 8.6 mg/dL (8.5-10.1); Chloride 107 mmol/L (98-107); Glucose 134 mg/dL (70-100); Potassium 3.9 mmol/L (3.5-5.1); Sodium 142 mmol/L (136-145); Total Protein 5.8 g/dL (6.4-8.2)
[2019-01-04 21:19] LABS: Ethyl Glucuronide Screen, U Negative
== END 2019-01-03 08:17 ==
PROVIDERS: PCP Family Medicine; Visit Provider Nurse Practitioner Adult Health
DX: K70.30 Alcoholic cirrhosis of liver without ascites (principal); Z76.82 Awaiting organ transplant status
CPT/HCPCS: 36415; 80053; 80307; 85610

== ENCOUNTER 2019-01-10 08:11 | Outpatient (CLI) | payer OTHER, SELFPAY ==
[2019-01-10 09:13] LABS: INR 1.7 (0.9-1.1); Prothrombin Time 16.9 sec (9.3-11.0)
[2019-01-10 09:33] LABS: ALT 27 U/L (12-78); AST 49 U/L (15-37); Albumin 2.5 g/dL (3.4-5.0); Alkaline Phosphatase 223 U/L (46-116); Anion Gap 7.1 mmol/L (3-11); BUN 7 mg/dL (7-18); Bilirubin, Total 6.5 mg/dL (0.2-1.0); CO2 27.9 mmol/L (21.0-32.0); CREATININE 1.07 mg/dL (0.70-1.30); Calcium 8.4 mg/dL (8.5-10.1); Chloride 106 mmol/L (98-107); Glucose 113 mg/dL (70-100); Potassium 3.7 mmol/L (3.5-5.1); Sodium 141 mmol/L (136-145)
[2019-01-16 09:04] LABS: Ethyl Glucuronide Screen, U Negative
== END 2019-01-10 08:31 ==
PROVIDERS: PCP Family Medicine; Visit Provider Nurse Practitioner Adult Health
DX: K70.30 Alcoholic cirrhosis of liver without ascites (principal); Z76.82 Awaiting organ transplant status
CPT/HCPCS: 36415; 80053; 80307; 85610

== ENCOUNTER 2019-01-17 08:01 | Outpatient (CLI) | payer OTHER, SELFPAY ==
[2019-01-17 10:19] LABS: ALT 27 U/L (12-78); AST 47 U/L (15-37); Albumin 2.4 g/dL (3.4-5.0); Alkaline Phosphatase 199 U/L (46-116); Anion Gap 8.5 mmol/L (3-11); BUN 7 mg/dL (7-18); Bilirubin, Total 6.3 mg/dL (0.2-1.0); CO2 27.5 mmol/L (21.0-32.0); CREATININE 1.03 mg/dL (0.70-1.30); Calcium 8.5 mg/dL (8.5-10.1); Chloride 107 mmol/L (98-107); Glucose 167 mg/dL (70-100); Potassium 3.8 mmol/L (3.5-5.1); Sodium 143 mmol/L (136-145); Total Protein 5.6 g/dL (6.4-8.2)
[2019-01-18 15:56] LABS: Ethyl Glucuronide Screen, U Negative
== END 2019-01-17 08:21 ==
PROVIDERS: PCP Family Medicine; Visit Provider Nurse Practitioner Adult Health
DX: K70.30 Alcoholic cirrhosis of liver without ascites (principal); Z76.82 Awaiting organ transplant status
CPT/HCPCS: 36415; 80053; 80307

== ENCOUNTER 2019-01-24 07:14 | Outpatient (CLI) | payer OTHER, SELFPAY ==
[2019-01-24 08:56] LABS: INR 1.6 (0.9-1.1); Prothrombin Time 16.5 sec (9.3-11.0)
[2019-01-24 09:01] LABS: ALT 28 U/L (12-78); AST 48 U/L (15-37); Albumin 2.5 g/dL (3.4-5.0); Alkaline Phosphatase 218 U/L (46-116); Anion Gap 8.2 mmol/L (3-11); BUN 6 mg/dL (7-18); Bilirubin, Total 6.1 mg/dL (0.2-1.0); CO2 26.8 mmol/L (21.0-32.0); CREATININE 0.91 mg/dL (0.70-1.30); Calcium 8.5 mg/dL (8.5-10.1); Chloride 108 mmol/L (98-107); Glucose 90 mg/dL (70-100); Potassium 3.8 mmol/L (3.5-5.1); Sodium 143 mmol/L (136-145); Total Protein 5.9 g/dL (6.4-8.2)
[2019-01-25 15:10] LABS: Ethyl Glucuronide Screen, U Negative
== END 2019-01-24 07:34 ==
PROVIDERS: PCP Family Medicine; Visit Provider Nurse Practitioner Adult Health
DX: K70.30 Alcoholic cirrhosis of liver without ascites (principal); Z76.82 Awaiting organ transplant status
CPT/HCPCS: 36415; 80053; 80307; 85610

== ENCOUNTER 2019-01-31 07:22 | Outpatient (CLI) | payer OTHER, SELFPAY ==
[2019-01-31 08:21] LABS: INR 1.7 (0.9-1.1); Prothrombin Time 16.9 sec (9.3-11.0)
[2019-01-31 08:39] LABS: ALT 24 U/L (12-78); AST 39 U/L (15-37); Albumin 2.5 g/dL (3.4-5.0); Alkaline Phosphatase 230 U/L (46-116); Anion Gap 7.1 mmol/L (3-11); BUN 6 mg/dL (7-18); Bilirubin, Total 5.3 mg/dL (0.2-1.0); CO2 26.9 mmol/L (21.0-32.0); CREATININE 1.05 mg/dL (0.70-1.30); Calcium 8.6 mg/dL (8.5-10.1); Chloride 107 mmol/L (98-107); Glucose 131 mg/dL (70-100); Potassium 3.8 mmol/L (3.5-5.1); Sodium 141 mmol/L (136-145); Total Protein 5.9 g/dL (6.4-8.2)
[2019-02-01 13:48] LABS: Ethyl Glucuronide Screen, U Negative
== END 2019-01-31 07:42 ==
PROVIDERS: PCP Family Medicine; Visit Provider Nurse Practitioner Adult Health
DX: K70.30 Alcoholic cirrhosis of liver without ascites (principal); Z76.82 Awaiting organ transplant status
CPT/HCPCS: 36415; 80053; 80307; 85610

== ENCOUNTER 2019-02-07 07:19 | Outpatient (CLI) | payer OTHER, SELFPAY ==
[2019-02-07 08:05] LABS: INR 1.7 (0.9-1.1); Prothrombin Time 16.7 sec (9.3-11.0)
[2019-02-07 08:45] LABS: ALT 24 U/L (12-78); AST 42 U/L (15-37); Albumin 2.5 g/dL (3.4-5.0); Alkaline Phosphatase 248 U/L (46-116); Anion Gap 7.6 mmol/L (3-11); BUN 7 mg/dL (7-18); Bilirubin, Total 6.1 mg/dL (0.2-1.0); CO2 26.4 mmol/L (21.0-32.0); CREATININE 1.01 mg/dL (0.70-1.30); Calcium 8.1 mg/dL (8.5-10.1); Chloride 107 mmol/L (98-107); Glucose 160 mg/dL (70-100); Potassium 3.8 mmol/L (3.5-5.1); Sodium 141 mmol/L (136-145); Total Protein 5.9 g/dL (6.4-8.2)
[2019-02-08 16:06] LABS: Ethyl Glucuronide Screen, U Negative
== END 2019-02-07 07:39 ==
PROVIDERS: PCP Family Medicine; Visit Provider Nurse Practitioner Adult Health
DX: K70.30 Alcoholic cirrhosis of liver without ascites (principal); Z76.82 Awaiting organ transplant status
CPT/HCPCS: 36415; 80053; 80307; 85610

== ENCOUNTER 2019-03-14 07:40 | Outpatient (CLI) | payer OTHER, SELFPAY ==
[2019-03-14 08:29] LABS: INR 1.7 (0.9-1.1); Prothrombin Time 17.3 sec (9.3-11.0)
[2019-03-14 09:38] LABS: ALT 26 U/L (12-78); AST 41 U/L (15-37); Albumin 2.4 g/dL (3.4-5.0); Alkaline Phosphatase 236 U/L (46-116); Anion Gap 7.1 mmol/L (3-11); BUN 6 mg/dL (7-18); CO2 26.9 mmol/L (21.0-32.0); CREATININE 1.01 mg/dL (0.70-1.30); Calcium 8.1 mg/dL (8.5-10.1); Chloride 107 mmol/L (98-107); Glucose 141 mg/dL (70-100); Potassium 4.1 mmol/L (3.5-5.1); Sodium 141 mmol/L (136-145); Total Protein 5.7 g/dL (6.4-8.2)
[2019-03-15 13:58] LABS: Ethyl Glucuronide Screen, U Negative
== END 2019-03-14 08:00 ==
PROVIDERS: PCP Family Medicine; Visit Provider Nurse Practitioner Adult Health
DX: K70.30 Alcoholic cirrhosis of liver without ascites (principal); Z76.82 Awaiting organ transplant status
CPT/HCPCS: 36415; 80053; 80307; 85610

== ENCOUNTER 2019-04-11 07:12 | Outpatient (CLI) | payer OTHER, SELFPAY ==
[2019-04-11 08:35] LABS: ALT 25 U/L (16-63); AST 46 U/L (15-37); Albumin 1.5 g/dL (3.4-5.0); Alkaline Phosphatase 213 U/L (46-116); Anion Gap 7.1 mmol/L (3-11); BUN 6 mg/dL (7-18); Bilirubin, Total 6.5 mg/dL (0.2-1.0); CO2 26.9 mmol/L (21.0-32.0); CREATININE 1.17 mg/dL (0.70-1.30); Calcium 8.2 mg/dL (8.5-10.1); Chloride 108 mmol/L (98-107); Glucose 159 mg/dL (70-100); Potassium 3.8 mmol/L (3.5-5.1); Sodium 142 mmol/L (136-145); Total Protein 6.1 g/dL (6.4-8.2)
[2019-04-11 08:43] LABS: INR 1.7 (0.9-1.1); Prothrombin Time 16.9 sec (9.3-11.0)
[2019-04-12 15:21] LABS: Ethyl Glucuronide Screen, U Negative
== END 2019-04-11 07:32 ==
PROVIDERS: PCP Family Medicine; Visit Provider Nurse Practitioner Adult Health
DX: K70.30 Alcoholic cirrhosis of liver without ascites (principal); Z76.82 Awaiting organ transplant status
CPT/HCPCS: 36415; 80053; 80307; 85610

== ENCOUNTER 2019-05-09 07:44 | Outpatient (CLI) | payer OTHER, SELFPAY ==
[2019-05-09 08:53] LABS: INR 1.6 (0.9-1.1); Prothrombin Time 16.3 sec (9.3-11.0)
[2019-05-09 09:02] LABS: ALT 24 U/L (16-63); AST 45 U/L (15-37); Albumin 2.6 g/dL (3.4-5.0); Alkaline Phosphatase 222 U/L (46-116); Anion Gap 7.1 mmol/L (3-11); BUN 6 mg/dL (7-18); Bilirubin, Total 6.2 mg/dL (0.2-1.0); CO2 26.9 mmol/L (21.0-32.0); CREATININE 1.05 mg/dL (0.70-1.30); Calcium 8.1 mg/dL (8.5-10.1); Chloride 106 mmol/L (98-107); Glucose 149 mg/dL (70-100); Potassium 3.6 mmol/L (3.5-5.1); Sodium 140 mmol/L (136-145); Total Protein 6.2 g/dL (6.4-8.2)
[2019-05-10 16:20] LABS: Ethyl Glucuronide Screen, U Negative
== END 2019-05-09 08:04 ==
PROVIDERS: PCP Family Medicine; Visit Provider Nurse Practitioner Adult Health
DX: K70.30 Alcoholic cirrhosis of liver without ascites (principal); Z76.82 Awaiting organ transplant status
CPT/HCPCS: 36415; 80053; 80307; 85610

== ENCOUNTER 2019-06-06 12:01 | Outpatient (CLI) | payer OTHER, SELFPAY ==
[2019-06-06 12:54] LABS: INR 1.8 (0.9-1.1); Prothrombin Time 17.4 sec (9.3-11.0)
[2019-06-06 13:30] LABS: ALT 32 U/L (16-63); AST 51 U/L (15-37); Albumin 2.5 g/dL (3.4-5.0); Alkaline Phosphatase 242 U/L (46-116); Anion Gap 8.6 mmol/L (3-11); BUN 6 mg/dL (7-18); Bilirubin, Total 6.4 mg/dL (0.2-1.0); CO2 27.4 mmol/L (21.0-32.0); CREATININE 1.01 mg/dL (0.70-1.30); Calcium 8.4 mg/dL (8.5-10.1); Chloride 107 mmol/L (98-107); Glucose 167 mg/dL (70-100); Potassium 3.8 mmol/L (3.5-5.1); Sodium 143 mmol/L (136-145); Total Protein 6.2 g/dL (6.4-8.2)
[2019-06-07 16:23] LABS: Ethyl Glucuronide Screen, U Negative
== END 2019-06-06 12:21 ==
PROVIDERS: PCP Family Medicine; Visit Provider Nurse Practitioner Adult Health
DX: K70.30 Alcoholic cirrhosis of liver without ascites (principal); Z76.82 Awaiting organ transplant status
CPT/HCPCS: 36415; 80053; 80307; 85610

== ENCOUNTER 2019-07-03 07:47 | Outpatient (CLI) | payer OTHER, SELFPAY ==
[2019-07-03 08:50] LABS: ALT 24 U/L (16-63); AST 46 U/L (15-37); Albumin 2.3 g/dL (3.4-5.0); Alkaline Phosphatase 265 U/L (46-116); Anion Gap 5.9 mmol/L (3-11); BUN 6 mg/dL (7-18); CO2 28.1 mmol/L (21.0-32.0); CREATININE 1.03 mg/dL (0.70-1.30); Calcium 8.5 mg/dL (8.5-10.1); Chloride 108 mmol/L (98-107); Glucose 129 mg/dL (74-106); Potassium 4.1 mmol/L (3.5-5.1); Sodium 142 mmol/L (136-145); Total Protein 5.7 g/dL (6.4-8.2)
[2019-07-03 09:04] LABS: INR 1.8 (0.9-1.1); Prothrombin Time 18.3 sec (9.3-11.0)
[2019-07-04 12:35] LABS: Ethyl Glucuronide Screen, U Negative
== END 2019-07-03 08:07 ==
PROVIDERS: PCP Family Medicine; Visit Provider Nurse Practitioner Adult Health
DX: K70.30 Alcoholic cirrhosis of liver without ascites (principal); Z76.82 Awaiting organ transplant status
CPT/HCPCS: 36415; 80053; 80307; 85610

== ENCOUNTER 2019-07-28 07:27 | Outpatient (CLI) | payer OTHER, SELFPAY ==
[2019-07-28 08:22] LABS: INR 1.7 (0.9-1.1); Prothrombin Time 16.7 sec (9.3-11.0)
[2019-07-28 09:11] LABS: ALT 28 U/L (16-63); AST 53 U/L (15-37); Albumin 2.3 g/dL (3.4-5.0); Alkaline Phosphatase 235 U/L (46-116); Anion Gap 6.7 mmol/L (3-11); BUN 7 mg/dL (7-18); CO2 28.3 mmol/L (21.0-32.0); CREATININE 1.04 mg/dL (0.70-1.30); Chloride 106 mmol/L (98-107); Glucose 178 mg/dL (74-106); Potassium 3.6 mmol/L (3.5-5.1); Sodium 141 mmol/L (136-145); Total Protein 5.8 g/dL (6.4-8.2)
[2019-07-31 11:37] LABS: Ethyl Glucuronide Screen, U Negative
== END 2019-07-28 07:47 ==
PROVIDERS: PCP Family Medicine; Visit Provider Nurse Practitioner Adult Health
DX: K70.30 Alcoholic cirrhosis of liver without ascites (principal); Z76.82 Awaiting organ transplant status
CPT/HCPCS: 36415; 80053; 80307; 85610

== ENCOUNTER 2019-08-25 07:55 | Outpatient (CLI) | payer OTHER, SELFPAY ==
[2019-08-25 08:58] LABS: INR 1.9 (0.9-1.1)
[2019-08-25 09:23] LABS: ALT 23 U/L (16-63); AST 47 U/L (15-37); Albumin 2.3 g/dL (3.4-5.0); Alkaline Phosphatase 253 U/L (46-116); Anion Gap 7.2 mmol/L (3-11); BUN 5 mg/dL (7-18); Bilirubin, Total 6.4 mg/dL (0.2-1.0); CO2 25.8 mmol/L (21.0-32.0); CREATININE 1.02 mg/dL (0.70-1.30); Calcium 8.2 mg/dL (8.5-10.1); Chloride 109 mmol/L (98-107); Glucose 151 mg/dL (74-106); Potassium 4.1 mmol/L (3.5-5.1); Sodium 142 mmol/L (136-145); Total Protein 5.6 g/dL (6.4-8.2)
[2019-08-26 15:39] LABS: Ethyl Glucuronide Screen, U Negative
== END 2019-08-25 08:15 ==
PROVIDERS: PCP Family Medicine; Visit Provider Nurse Practitioner Adult Health
DX: K70.30 Alcoholic cirrhosis of liver without ascites (principal); Z76.82 Awaiting organ transplant status
CPT/HCPCS: 36415; 80053; 80307; 85610

== ENCOUNTER 2019-09-29 07:51 | Outpatient (CLI) | payer OTHER, SELFPAY ==
[2019-09-29 08:29] LABS: INR 1.8 (0.9-1.1); Prothrombin Time 17.9 sec (9.3-11.0)
[2019-09-29 10:13] LABS: ALT 23 U/L (16-63); AST 40 U/L (15-37); Albumin 2.5 g/dL (3.4-5.0); Alkaline Phosphatase 218 U/L (46-116); Anion Gap 8.9 mmol/L (3-11); BUN 6 mg/dL (7-18); Bilirubin, Total 8.7 mg/dL (0.2-1.0); CO2 26.1 mmol/L (21.0-32.0); CREATININE 1.07 mg/dL (0.70-1.30); Calcium 8.3 mg/dL (8.5-10.1); Chloride 106 mmol/L (98-107); Glucose 161 mg/dL (74-106); Potassium 3.5 mmol/L (3.5-5.1); Sodium 141 mmol/L (136-145); Total Protein 5.9 g/dL (6.4-8.2)
[2019-09-30 16:33] LABS: Ethyl Glucuronide Screen, U Negative
== END 2019-09-29 08:11 ==
PROVIDERS: PCP Family Medicine; Visit Provider Nurse Practitioner Adult Health
DX: K70.30 Alcoholic cirrhosis of liver without ascites (principal); Z76.82 Awaiting organ transplant status
CPT/HCPCS: 36415; 80053; 80307; 85610

== ENCOUNTER 2019-11-07 01:28 | Outpatient (CLI) | payer OTHER, SELFPAY ==
[2019-11-07 11:39] LABS: INR 1.9 (0.9-1.1); Prothrombin Time 19.1 sec (9.3-11.0)
[2019-11-07 11:55] LABS: ALT 28 U/L (16-63); AST 45 U/L (15-37); Albumin 2.4 g/dL (3.4-5.0); Alkaline Phosphatase 205 U/L (46-116); Anion Gap 5.2 mmol/L (3-11); BUN 6 mg/dL (7-18); Bilirubin, Total 6.8 mg/dL (0.2-1.0); CO2 27.8 mmol/L (21.0-32.0); CREATININE 1.07 mg/dL (0.70-1.30); Calcium 7.9 mg/dL (8.5-10.1); Chloride 108 mmol/L (98-107); Glucose 125 mg/dL (74-106); Potassium 3.8 mmol/L (3.5-5.1); Sodium 141 mmol/L (136-145)
[2019-11-08 14:06] LABS: Ethyl Glucuronide Screen, U Negative
== END 2019-11-07 01:48 ==
PROVIDERS: PCP Family Medicine; Visit Provider Nurse Practitioner Adult Health
DX: K70.30 Alcoholic cirrhosis of liver without ascites (principal); Z76.82 Awaiting organ transplant status
CPT/HCPCS: 36415; 80053; 80307; 85610

== ENCOUNTER 2019-12-22 04:03 | Outpatient (CLI) | payer OTHER, SELFPAY ==
[2019-12-22 07:38] LABS: ALT 28 U/L (16-63); AST 47 U/L (15-37); Albumin 2.4 g/dL (3.4-5.0); Alkaline Phosphatase 204 U/L (46-116); Anion Gap 5.1 mmol/L (3-11); BUN 6 mg/dL (7-18); Bilirubin, Total 8.1 mg/dL (0.2-1.0); CO2 28.9 mmol/L (21.0-32.0); CREATININE 1.12 mg/dL (0.70-1.30); Calcium 8.3 mg/dL (8.5-10.1); Chloride 105 mmol/L (98-107); Glucose 121 mg/dL (74-106); Potassium 3.8 mmol/L (3.5-5.1); Sodium 139 mmol/L (136-145); Total Protein 6.1 g/dL (6.4-8.2)
[2019-12-22 08:34] LABS: INR 1.8 (0.9-1.1); Prothrombin Time 17.7 sec (9.3-11.0)
[2019-12-23 17:05] LABS: Ethyl Glucuronide Screen, U Negative
== END 2019-12-22 04:23 ==
PROVIDERS: PCP Family Medicine; Visit Provider Nurse Practitioner Adult Health
DX: K70.30 Alcoholic cirrhosis of liver without ascites (principal); Z76.82 Awaiting organ transplant status
CPT/HCPCS: 36415; 80053; 80307; 85610

== ENCOUNTER 2020-01-25 03:00 | Outpatient (CLI) | payer OTHER, SELFPAY ==
[2020-01-25 17:12] LABS: ALT 33 U/L (16-63); AST 55 U/L (15-37); Albumin 2.8 g/dL (3.4-5.0); Alkaline Phosphatase 197 U/L (46-116); Anion Gap 6.7 mmol/L (3-11); BUN 6 mg/dL (7-18); Bilirubin, Total 9.4 mg/dL (0.2-1.0); CO2 27.3 mmol/L (21.0-32.0); CREATININE 1.07 mg/dL (0.70-1.30); Calcium 8.5 mg/dL (8.5-10.1); Chloride 106 mmol/L (98-107); Glucose 81 mg/dL (74-106); Potassium 3.7 mmol/L (3.5-5.1); Sodium 140 mmol/L (136-145); Total Protein 6.3 g/dL (6.4-8.2)
[2020-01-25 17:22] LABS: Prothrombin Time 19.7 sec (9.3-11.0)
[2020-01-26 19:55] LABS: Ethyl Glucuronide Screen, U Negative
== END 2020-01-25 03:20 ==
PROVIDERS: PCP Family Medicine; Visit Provider Nurse Practitioner Adult Health
DX: K70.30 Alcoholic cirrhosis of liver without ascites (principal); Z76.82 Awaiting organ transplant status
CPT/HCPCS: 36415; 80053; 80307; 85610

== ENCOUNTER 2020-02-16 03:30 | Outpatient (CLI) | payer OTHER, SELFPAY ==
[2020-02-16 10:17] LABS: Abs Immature Grans 0.01 k/cumm (0.0-0.09); Absolute Basophil Count 0.06 k/cumm (0.0-0.2); Absolute Eosinophil Count 0.18 k/cumm (0.0-0.7); Absolute Lymphocyte Count 0.81 k/cumm (1.2-3.4); Absolute Monocyte Count 0.33 k/cumm (0.11-0.7); Basophils % 1.2; Eosinophils % 3.5; HCT 32.4 % (40.0-50.0); HGB 10.9 g/dL (13.5-17.5); Immature Grans % 0.2 %; Lymphocytes % 15.6; Mean Corp. HGB Concentration 33.6 g/dL (32.0-36.0); Mean Corpuscular Hemoglobin 36.7 pg (27.0-33.0); Mean Corpuscular Volume 109.1 fL (80-95); Mean Platelet Volume 9.5 fL (8.0-11.0); Monocytes % 6.4; Neutrophils % 73.1; RBC 2.97 m/cumm (4.50-6.00); RBC Distribution Width 12.9 % (11.8-14.1); White Blood Cell Count 5.19 k/cumm (4.4-10.8)
[2020-02-16 10:20] LABS: INR 2.1 (0.9-1.1)
[2020-02-16 10:39] LABS: Diff Comment RBC Morph Reviewed; Macrocytosis 2+; Platelet Count 79 x1000/uL (130-400)
[2020-02-16 10:40] LABS: Poikilocytes 2+; Prothrombin Time 20.4 sec (9.3-11.0)
[2020-02-16 11:18] LABS: ALT 42 U/L (16-63); AST 65 U/L (15-37); Albumin 2.4 g/dL (3.4-5.0); Alkaline Phosphatase 186 U/L (46-116); Anion Gap 7.5 mmol/L (3-11); BUN 6 mg/dL (7-18); Bilirubin, Total 6.6 mg/dL (0.2-1.0); CO2 25.5 mmol/L (21.0-32.0); CREATININE 1.14 mg/dL (0.70-1.30); Chloride 107 mmol/L (98-107); Glucose 148 mg/dL (74-106); Sodium 140 mmol/L (136-145); Total Protein 5.4 g/dL (6.4-8.2)
[2020-02-19 11:51] LABS: Ethyl Glucuronide Screen, U Negative
== END 2020-02-16 03:50 ==
PROVIDERS: PCP Family Medicine; Visit Provider Nurse Practitioner Adult Health
DX: Z76.82 Awaiting organ transplant status; K70.31 Alcoholic cirrhosis of liver with ascites
CPT/HCPCS: 36415; 80053; 80307; 85025; 85610

== ENCOUNTER 2020-04-24 02:40 | Outpatient (CLI) | payer OTHER, SELFPAY ==
[2020-04-24 08:15] LABS: ALT 32 U/L (16-63); AST 56 U/L (15-37); Albumin 1.8 g/dL (3.4-5.0); Alkaline Phosphatase 231 U/L (46-116); Anion Gap 5.4 mmol/L (3-11); BUN 5 mg/dL (7-18); Bilirubin, Total 8.9 mg/dL (0.2-1.0); CO2 27.6 mmol/L (21.0-32.0); CREATININE 0.92 mg/dL (0.70-1.30); Calcium 7.5 mg/dL (8.5-10.1); Chloride 108 mmol/L (98-107); Glucose 113 mg/dL (74-106); Potassium 3.6 mmol/L (3.5-5.1); Sodium 141 mmol/L (136-145)
[2020-04-24 08:17] LABS: Total Protein 4.9 g/dL (6.4-8.2)
[2020-04-24 13:53] LABS: Abs Immature Grans 0.03 10^3/uL (0.0-0.06); Absolute Basophil Count 0.09 10^3/uL (0.0-0.2); Absolute Lymphocyte Count 0.88 10^3/uL (1.2-3.4); Absolute Monocyte Count 0.41 10^3/uL (0.1-0.8); Absolute Neutrophil Count 4.18 10^3/uL (1.2-6.7); Basophils % 1.6; Eosinophils % 1.8; HCT 31.4 % (40.0-50.0); HGB 10.6 g/dL (13.5-17.5); Immature Grans % 0.5; Lymphocytes % 15.5; MCH 38.7 pg (27.0-33.0); MCHC 33.8 % (32.0-36.0); MCV 114.6 fL (80-95); MPV 9.9 fL (8.0-11.0); Monocytes % 7.2; Neutrophils % 73.4; Nucleated RBC 0 %; RBC 2.74 10^6/uL (4.36-5.78); RDW 13.2 % (11.8-14.1); RDW-SD 55.2 fL; WBC 5.69 10^3/uL (4.4-10.8)
[2020-04-24 14:20] LABS: ETHANOL BLOOD < 3.0 mg/dL (<3)
[2020-04-24 14:41] LABS: Diff Comment PLT Morph Reviewed; Macrocytosis 3+; Platelet Count 82 10^3/uL (130-400); Polychromasia Present
[2020-04-24 14:42] LABS: Poikilocytes 2+
[2020-04-25 19:54] LABS: Ethyl Glucuronide Screen, U Negative
[2020-04-26 08:51] LABS: AFP Tumor Marker 4.2 ng/mL (<8.1)
== END 2020-04-24 03:00 ==
PROVIDERS: PCP Family Medicine; Visit Provider Nurse Practitioner Adult Health
DX: K70.30 Alcoholic cirrhosis of liver without ascites (principal); Z76.82 Awaiting organ transplant status
CPT/HCPCS: 36415; 80053; 80307; 85610; 80320; 82105; 85025

== ENCOUNTER 2020-04-29 10:15 | Emergency (ER) | payer OTHER, SELFPAY ==
[2020-04-29 10:20] VITALS: BP 145/81; PULSE 88; RESP 16; TEMP 37; O2SAT 97
--- NOTE | 2020-04-29 10:47 | W.ED.GENAD ---
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 Primary Care Provider: Joaquin Soliz ED Provider: Federico Kaur Home Meds and New Rx's Prescriptions: New furosemide [Lasix] 20 mg tablet 20 mg PO DAILY Qty: 14 RF: 0 Continued multivitamin [Multiple Vitamins] 1 TAB tablet 1 tab PO BID Qty: 100 RF: 0 cholecalciferol (vitamin D3) [Vitamin D3] 1,000 UNIT capsule 1,000 unit PO DAILY RF: 0 zinc gluconate-zinc picolinate 30 MG capsule 30 mg PO DAILY RF: 0 No Action ondansetron [Zofran ODT] 4 MG tablet,disintegrating 4 mg PO Q6H PRN PRN (Reason: Nausea) Qty: 10 RF: 0 melatonin 5 MG tablet 5 mg PO HS RF: 0 furosemide 20 MG tablet 20 mg PO DAILY Qty: 90 RF: 0 spironolactone 25 MG tablet 50 mg PO DAILY RF: 0 vitamin A 10,000 UNIT capsule 10,000 unit PO DAILY RF: 0 oxycodone [Roxicodone] 5 MG/5 ML solution 2.5 mg PO Q6H PRN PRNQty: 20 RF: 0 lactulose 10 GM/15 ML solution 30 g PO DAILY RF: 0 Discharge Instructions Instructions: Ascites (ED) Additional Instructions: Lasix as directed. Urine culture is pending. Please watch for new or worsening symptoms and return to the ER for any concerns. I personally spoke with Dr. Soliz aware of your ER visit today. He will schedule you an outpatient blood draw in 1 week, follow your urine culture, and subsequently see you in the office. I do recommend reaching out to his office later today or tomorrow to confirm times of your blood draw and appointment. Discharge Data Discharge Date/Time-TO BE ENTERED AT DEPARTURE: 04/29/20 12:21 Medical Decision Making 44-year-old gentleman with stage IV liver failure, awaiting transplant, presents to the ER today for fluid retention. He reports that he has had this occasionally in the past and was on Lasix at one point. Typically he is able to watch his diet, fluid intake, elevate his legs, and the fluid resolves after a few days. He reports his symptoms have been present for approximately 10 days, and although mild in nature, would like to get ahead of this before he gets more severe. He has no other symptoms such as fever, chest pain, shortness of breath, cough and abdominal pain, nausea, vomiting, urinary frequency, urinary discomfort, blood in his urine, testicular pain, diarrhea or constipation. He does complain of mild swelling in his legs as well. Swelling in his legs get better with elevation and worse with being upright. He has required a paracentesis in the past. Patient with known coagulation disorder secondary to his liver disease. Clinically patient appears well, nontoxic. Blood pressure 145/81, pulse in the 80s, he is afebrile. He does have scrotal swelling but no discomfort over his epididymis, both testicles are nontender. Abdomen is soft, nontender, no true distention. He denies any chest pain or shortness of breath. Lungs are clear to auscultation. No evidence of spontaneous bacterial peritonitis. Patient does discuss possible paracentesis however given how well he appears do not believe this is required emergently. I would prefer to avoid paracentesis if at all possible. Will obtain IV access, obtain routine laboratory values, urinalysis, coags and reassess. Patient is agreeable to this plan. He he is followed primarily by Dr. Soliz but he is also followed at [facility] for his transplant team. Subsequent transplant will take place in [place]. Initial laboratory values reveal a white blood cell count of 5.03 hemoglobin 10.7 hematocrit 31.5 platelet count 77. Anemia and platelet count appear to be near baseline INR and PT unable to results. APTT 43.1. Sodium 139, potassium 3.8. Creatinine 0.94 with a GFR greater than 60. Calcium 7.5, appears to be near baseline. Total bili 8.7 AST 66 ALT 29, phosphatase 206. Total protein 5.0 albumin 1.6. LFTs appear to be near baseline. Ammonia level 13. Lipase 130. Urinalysis large blood, large leuk esterase, greater than 50 red cells and white cells. Many bacteria. Urine nitrate cannot be determined secondary to color interference culture indicated and pending Discussed laboratory values with patient. He denies any dysuria, hematuria, frequency whatsoever. No clinical signs of UTI. I would prefer discussed the case with his primary care provider prior to initiating any therapy. Able to discuss patient's presentation, case, laboratory values with Dr. Soliz. At this time will not initiate any antibiotic therapy, culture pending. He will follow culture. He recommends initiating 20 p.o. Lasix for the next 10-14 days. He will order an outpatient blood draw of BMP to assess renal function in the next week and then he will personally evaluate the patient soon after to assess how the patient is responding to the diuretics. Again, he will follow the urine culture and if necessary obtain another urinalysis when he evaluates the patient or initiate antibiotic therapy. This plan was discussed with patient in length. He has no additional questions or concerns and is comfortable with this plan. He was encouraged to return to the ER for new or evolving symptoms otherwise contact his primary care by phone later today or tomorrow to determine the time of his follow-up appointment and blood draw Medical Records Medical records reviewed: Yes I reviewed the patient's medical records. Lab Data Lab results reviewed: Yes I reviewed the patient's lab results. Lab results narrative: 04/29/20 11:05 Urine - Reflex from Ua Urine Culture - Pending Laboratory Tests Range/Units 04/29/20 04/29/20 04/29/20 10:45 10:45 10:45 WBC (4.4-10.8) 10^3/uL RBC (4.36-5.78) 10^6/uL Hgb (13.5-17.5) g/dL Hct (40.0-50.0) % MCV (80-95) fL MCH (27.0-33.0) pg MCHC (32.0-36.0) % RDW (11.8-14.1) % Plt Count (130-400) 10^3/uL MPV (8.0-11.0) fL Immature Gran % Neutrophils % Lymphocytes % Monocytes % Eosinophils % Basophils % Nucleated RBC % % Absolute Neutrophils (1.2-6.7) 10^3/uL Absolute Lymphocytes (1.2-3.4) 10^3/uL Absolute Monocytes (0.1-0.8) 10^3/uL Absolute Eosinophils (0.0-0.7) 10^3/uL Absolute Basophils (0.0-0.2) 10^3/uL RBC Morphology Macrocytosis Kenny Cells/Echinocytes PT (9.3-11.0) sec INR (0.9-1.1) APTT (21.0-31.4) sec 43.1 H Sodium (136-145) mmol/L Potassium (3.5-5.1) mmol/L Chloride (98-107) mmol/L Carbon Dioxide (21.0-32.0) mmol/L Anion Gap (3-11) mmol/L BUN (7-18) mg/dL Creatinine (0.70-1.30) mg/dL Estimated GFR/1.73 m2 (mL/min/1.73m2) Glucose (74-106) mg/dL Calcium (8.5-10.1) mg/dL Total Bilirubin (0.2-1.0) mg/dL AST (15-37) U/L ALT (16-63) U/L Alkaline Phosphatase (46-116) U/L Ammonia (11-32) umol/L 13 Total Protein (6.4-8.2) g/dL Albumin (3.4-5.0) g/dL Lipase (73-393) U/L 130 Urine Color (Yellow) Urine Clarity (Clear) Urine pH (5-8) Ur Specific [place] (1.005-1.025) Urine Protein (Negative) mg/dL Urine Ketones (Negative) mg/dL Urine Blood (Negative) Urine Nitrite (Negative) Urine Bilirubin (Negative) Urine Urobilinogen (Up TO 0.2) EU/dL Ur Leukocyte Esterase (Negative) Urine RBC (0-2) HPF Urine WBC (0-5) HPF Ur Epithelial Cells (Negative) HPF Urine Crystals (Negative) HPF Urine Bacteria (Negative) HPF Urine Casts (Negative) LPF Urine Mucus (Negative) Ur Culture Indicated? Urine Glucose (Negative) mg/dL Range/Units 04/29/20 04/29/20 04/29/20 10:45 10:45 11:05 WBC (4.4-10.8) 10^3/uL 5.03 RBC (4.36-5.78) 10^6/uL 2.77 L Hgb (13.5-17.5) g/dL 10.7 L Hct (40.0-50.0) % 31.5 L MCV (80-95) fL 113.7 H MCH (27.0-33.0) pg 38.6 H MCHC (32.0-36.0) % 34.0 RDW (11.8-14.1) % 13.1 Plt Count (130-400) 10^3/uL 77 L MPV (8.0-11.0) fL 10.0 Immature Gran % 0.6 Neutrophils % 66.4 Lymphocytes % 16.5 Monocytes % 9.7 Eosinophils % 4.6 Basophils % 2.2 Nucleated RBC % % 0 Absolute Neutrophils (1.2-6.7) 10^3/uL 3.34 Absolute Lymphocytes (1.2-3.4) 10^3/uL 0.83 L Absolute Monocytes (0.1-0.8) 10^3/uL 0.49 Absolute Eosinophils (0.0-0.7) 10^3/uL 0.23 Absolute Basophils (0.0-0.2) 10^3/uL 0.11 RBC Morphology See below Macrocytosis 3+ Kenny Cells/Echinocytes 2+ PT (9.3-11.0) sec INR (0.9-1.1) APTT (21.0-31.4) sec Sodium (136-145) mmol/L 139 Potassium (3.5-5.1) mmol/L 3.8 Chloride (98-107) mmol/L 109 H Carbon Dioxide (21.0-32.0) mmol/L 26.1 Anion Gap (3-11) mmol/L 3.9 BUN (7-18) mg/dL 5 L Creatinine (0.70-1.30) mg/dL 0.94 Estimated GFR/1.73 m2 (mL/min/1.73m2) >= 60.00 Glucose (74-106) mg/dL 119 H Calcium (8.5-10.1) mg/dL 7.5 L Total Bilirubin (0.2-1.0) mg/dL 8.7 H AST (15-37) U/L 66 H ALT (16-63) U/L 29 Alkaline Phosphatase (46-116) U/L 206 H Ammonia (11-32) umol/L Total Protein (6.4-8.2) g/dL 5.0 L Albumin (3.4-5.0) g/dL 1.6 L Lipase (73-393) U/L Urine Color (Yellow) Nimo Urine Clarity (Clear) Cloudy Urine pH (5-8) 6.0 Ur Specific [place] (1.005-1.025) 1.020 Urine Protein (Negative) mg/dL 30 H Urine Ketones (Negative) mg/dL Negative Urine Blood (Negative) Large H Urine Nitrite (Negative) Urine Bilirubin (Negative) Large H Urine Urobilinogen (Up TO 0.2) EU/dL >=8.0 Ur Leukocyte Esterase (Negative) Large H Urine RBC (0-2) HPF >50 H Urine WBC (0-5) HPF >50 H Ur Epithelial Cells (Negative) HPF Negative Urine Crystals (Negative) HPF Negative Urine Bacteria (Negative) HPF Many Urine Casts (Negative) LPF Negative Urine Mucus (Negative) Negative Ur Culture Indicated? Yes Urine Glucose (Negative) mg/dL 100 HPI General Mode of arrival: ambulatory. Date/Time Provider Initiated Documentation: 04/29/20 10:15. Limitations to Documentation: no limitations. Information obtained by: patient. HPI Narrative: This is a 44-year-old gentleman with history of stage IV liver disease, currently on a transplant list in [place]. He states that over the past 10 days he would estimate no more than 10 pound weight gain, a feeling of tightness in his abdomen but no true pain. He states that when he is upright the fluid drained into his legs and then if he elevates his legs the fluid goes back into his scrotum and abdomen. He was directed to come to the ER by the office of his primary care provider. He used to be on a diuretic but has not been on that for nearly 2 years. He denies recent illness or trauma. Denies any fever, chest pain, shortness of breath, cough, abdominal pain, nausea, vomiting, dysuria, hematuria, diarrhea or constipation. He questions if he needs to have the fluid drained or potentially be placed back onto his medications. Related Data Home Medications Medication Instructions Recorded Confirmed ondansetron [Zofran Odt] 4 mg PO Q6H PRN PRN #10 tab.rapdis 02/20/17 04/29/20 melatonin 5 mg PO HS 04/08/17 04/29/20 furosemide 20 mg PO DAILY #90 tab 04/13/17 04/29/20 multivitamin [Multiple Vitamins] 1 tab PO BID #100 tab 04/13/17 04/29/20 spironolactone 50 mg PO DAILY 06/20/17 04/29/20 cholecalciferol (vitamin D3) 1,000 unit PO DAILY 07/31/17 04/29/20 [Vitamin D3] oxycodone [Roxicodone] 2.5 mg PO Q6H PRN PRN #20 ml 07/31/17 04/29/20 vitamin A 10,000 unit PO DAILY 07/31/17 04/29/20 zinc gluconate-zinc picolinate 30 mg PO DAILY 07/31/17 04/29/20 lactulose 30 g PO DAILY 09/21/17 04/29/20 furosemide [Lasix] 20 mg PO DAILY #14 tab 04/29/20 Previous Rx's Medication Instructions Recorded ondansetron [Zofran Odt] 4 mg PO Q6H PRN PRN #10 tab.rapdis 02/20/17 furosemide 20 mg PO DAILY #90 tab 04/13/17 multivitamin [Multiple Vitamins] 1 tab PO BID #100 tab 04/13/17 oxycodone [Roxicodone] 2.5 mg PO Q6H PRN PRN #20 ml 07/31/17 furosemide [Lasix] 20 mg PO DAILY #14 tab 04/29/20 Allergies Allergy/AdvReac Type Severity Reaction Status Date / Time No Known Allergies Allergy Unverified 04/29/20 10:25 General Stated Complaint: Abd Prob CHUY: 3 Review of Systems Constitutional Constitutional: Denies fatigue, Denies fever(s) and Denies weakness ENT Ears, Nose, Mouth, and Throat: Denies neck pain Cardiovascular Cardiovascular: Denies chest pain and Denies dyspnea Respiratory Respiratory: Denies cough and Denies dyspnea Gastrointestinal Gastrointestinal: Denies abdominal pain, Denies nausea, Denies vomiting and Reports other (Abdominal tightness) Genitourinary Genitourinary: Denies dysuria, Reports scrotal swelling (And tightness-pain) and Denies testicular pain Musculoskeletal Musculoskeletal: Denies back pain, Denies neck pain, Denies numbness and Denies tingling Integumentary/Breasts Skin/Breast: Denies rash Neurologic Neurologic: Denies numbness, Denies tingling and Denies weakness Endocrine Endocrine: Denies fatigue Hematologic/Lymphatic Hematologic/Lymphatic: Denies easy bleeding and Reports easy bruising [facility] Social History Alcohol Intake: former Drug use: Current Sobriety Substance use type: marijuana Do you feel safe in your relationship?: Yes Exam Const General: cooperative, healthy appearing, comfortable and no acute distress Orientation: alert, awake and oriented x3 HENMT Head: normal to inspection, normocephalic and atraumatic Face and sinus: normal facial exam Mouth: moist mucous membranes Eyes Conjunctivae: conjunctivae normal Sclera: sclerae normal Neck Neck: normal visual inspection, full ROM, trachea midline and supple Resp Effort & Inspection: normal respiratory effort and able to speak in complete sentences Auscultation: clear to auscultation bilaterally Cardio Rate: regular rate Rhythm: regular rhythm GI Palpation: soft, not firm, no guarding, no pulsatile masses, not rigid, nontender and ascites (Minimal) Auscultation: normal bowel sounds Male General Exam: Yes edema (Entire scrotum) Penis: normal penis Meatus: meatus normal Scrotum: scrotal swelling Testes: normal Back/Spine/Pelvis Back: No back tenderness Skin General skin exam: no rashes or lesions noted Neuro General: patient alert, patient awake, patient oriented x3, moves all extremities and no focal motor deficits Cognition: normal cognition Speech: speech normal Gait: normal gait Motor: muscle tone normal throughout Sensory Exam: no sensory deficits noted Extrem General: full ROM and capillary refill normal Right upper extremity: normal to inspection and full ROM Left upper extremity: normal to inspection and full ROM Right lower extremity: full ROM, normal capillary refill and edema Details: pitting and 1+ Left lower extremity: full ROM, normal capillary refill and edema Details: pitting and 1+ Psych Appearance: grossly normal Mental Status: mental status grossly normal Course Vital Signs Vital signs: Vital Signs Temperature 37 C 04/29/20 10:20 Pulse 88 04/29/20 10:20 Respiratory Rate 16 04/29/20 10:20 Blood Pressure 145/81 H 04/29/20 10:20 Pulse Oximetry 97 04/29/20 10:20 Temperature 37 C 04/29/20 10:20 Temperature Source Skin 04/29/20 10:20 Pulse 88 04/29/20 10:20 Respiratory Rate 16 04/29/20 10:20 Respiratory Effort Non-Labored 04/29/20 10:20 Blood Pressure 145/81 H 04/29/20 10:20 Blood Pressure Position Sitting 04/29/20 10:20 Pulse Oximetry 97 04/29/20 10:20 Oxygen Delivery Method Room Air 04/29/20 10:20 Oxygen Flow Rate 0 04/29/20 10:20 Pain Level 2 04/29/20 10:20
[2020-04-29 11:07] LABS: Abs Immature Grans 0.03 10^3/uL (0.0-0.06); Absolute Basophil Count 0.11 10^3/uL (0.0-0.2); Absolute Eosinophil Count 0.23 10^3/uL (0.0-0.7); Absolute Lymphocyte Count 0.83 10^3/uL (1.2-3.4); Absolute Monocyte Count 0.49 10^3/uL (0.1-0.8); Absolute Neutrophil Count 3.34 10^3/uL (1.2-6.7); Basophils % 2.2; Eosinophils % 4.6; HCT 31.5 % (40.0-50.0); HGB 10.7 g/dL (13.5-17.5); Immature Grans % 0.6; Lymphocytes % 16.5; MCH 38.6 pg (27.0-33.0); MCV 113.7 fL (80-95); Monocytes % 9.7; Neutrophils % 66.4; Nucleated RBC 0 %; RBC 2.77 10^6/uL (4.36-5.78); RDW 13.1 % (11.8-14.1); RDW-SD 53.8 fL; WBC 5.03 10^3/uL (4.4-10.8)
[2020-04-29 11:12] LABS: Ammonia 13 umol/L (11-32)
[2020-04-29 11:14] LABS: Bilirubin Large (Negative); Blood Large (Negative); Clarity Cloudy (Clear); Glucose 100 mg/dL (Negative); Ketones Negative (Negative); Leukocyte Esterase Large (Negative); Urobilinogen >=8.0 EU/dL (Up TO 0.2)
[2020-04-29 11:24] LABS: Bacteria Many HPF (Negative); C & S Indicated? Yes; Casts Negative LPF (Negative); Crystals Negative HPF (Negative); Epithelial Cells Negative HPF (Negative); Mucus Negative (Negative); RBC >50 HPF (0-2); WBC >50 HPF (0-5)
[2020-04-29 11:27] LABS: ALT 29 U/L (16-63); AST 66 U/L (15-37); Albumin 1.6 g/dL (3.4-5.0); Alkaline Phosphatase 206 U/L (46-116); Anion Gap 3.9 mmol/L (3-11); BUN 5 mg/dL (7-18); Bilirubin, Total 8.7 mg/dL (0.2-1.0); CO2 26.1 mmol/L (21.0-32.0); CREATININE 0.94 mg/dL (0.70-1.30); Calcium 7.5 mg/dL (8.5-10.1); Chloride 109 mmol/L (98-107); Glucose 119 mg/dL (74-106); Potassium 3.8 mmol/L (3.5-5.1); Sodium 139 mmol/L (136-145)
[2020-04-29 11:30] LABS: Lipase 130 U/L (73-393)
[2020-04-29 11:41] LABS: Burr Cells (echinocyte) 2+; Diff Comment PLT Morph Reviewed; Macrocytosis 3+; Platelet Count 77 10^3/uL (130-400)
[2020-04-29 11:55] VITALS: BP 118/53; PULSE 68; RESP 16; O2SAT 95
[2020-04-29 11:57] LABS: PTT Activated 43.1 sec (21.0-31.4)
== END 2020-04-29 12:21 | disposition home or self-care (01) ==
PROVIDERS: Emergency Provider Physician Assistant; PCP Family Medicine
DX: D68.4 Acquired coagulation factor deficiency (principal); K70.11 Alcoholic hepatitis with ascites; K72.90 Hepatic failure, unspecified without coma
CPT/HCPCS: 36415; 80053; 83690; 87077; 99283; 81003; 81015; 82140; 85025; 85610; 85730; 87086; 87186

== ENCOUNTER 2020-05-07 01:17 | Outpatient (CLI) | payer OTHER, SELFPAY ==
[2020-05-07 08:25] LABS: Abs Immature Grans 0.03 10^3/uL (0.0-0.06); Absolute Basophil Count 0.08 10^3/uL (0.0-0.2); Absolute Eosinophil Count 0.35 10^3/uL (0.0-0.7); Absolute Lymphocyte Count 1.08 10^3/uL (1.2-3.4); Absolute Neutrophil Count 4.51 10^3/uL (1.2-6.7); Basophils % 1.2; Eosinophils % 5.3; HCT 27.9 % (40.0-50.0); HGB 9.2 g/dL (13.5-17.5); Immature Grans % 0.5; Lymphocytes % 16.2; MCH 38.8 pg (27.0-33.0); MCV 117.7 fL (80-95); Neutrophils % 67.8; Nucleated RBC 0 %; RBC 2.37 10^6/uL (4.36-5.78); RDW-SD 60.2 fL; WBC 6.65 10^3/uL (4.4-10.8)
[2020-05-07 08:46] LABS: Diff Comment PLT Morph Reviewed; Platelet Count 71 10^3/uL (130-400)
[2020-05-07 08:47] LABS: Anisocytosis 1+; Macrocytosis 3+; Poikilocytes 2+; Polychromasia Present
[2020-05-07 09:03] LABS: ALT 25 U/L (16-63); AST 60 U/L (15-37); Albumin 1.5 g/dL (3.4-5.0); Alkaline Phosphatase 191 U/L (46-116); Anion Gap 4.4 mmol/L (3-11); BUN 7 mg/dL (7-18); Bilirubin, Total 8.8 mg/dL (0.2-1.0); CO2 26.6 mmol/L (21.0-32.0); CREATININE 0.98 mg/dL (0.70-1.30); Calcium 7.7 mg/dL (8.5-10.1); Chloride 108 mmol/L (98-107); Glucose 105 mg/dL (74-106); Sodium 139 mmol/L (136-145)
[2020-05-07 09:20] LABS: ETHANOL BLOOD < 3.0 mg/dL (<3)
[2020-05-08 09:43] LABS: AFP Tumor Marker 5.6 ng/mL (<8.1)
== END 2020-05-07 01:37 ==
PROVIDERS: Nurse Practitioner Adult Health; PCP Family Medicine; Visit Provider Family Medicine
DX: K70.30 Alcoholic cirrhosis of liver without ascites (principal); C22.0 Liver cell carcinoma; Z76.82 Awaiting organ transplant status
CPT/HCPCS: 36415; 80053; 80320; 82105; 85025; 85610

== ENCOUNTER 2020-05-14 01:29 | Outpatient (CLI) | payer OTHER, SELFPAY ==
[2020-05-14 08:14] LABS: Abs Immature Grans 0.02 10^3/uL (0.0-0.06); Absolute Basophil Count 0.07 10^3/uL (0.0-0.2); Absolute Eosinophil Count 0.25 10^3/uL (0.0-0.7); Absolute Lymphocyte Count 1.14 10^3/uL (1.2-3.4); Absolute Monocyte Count 0.48 10^3/uL (0.1-0.8); Absolute Neutrophil Count 3.72 10^3/uL (1.2-6.7); Basophils % 1.2; Eosinophils % 4.4; HCT 25.1 % (40.0-50.0); HGB 8.5 g/dL (13.5-17.5); Immature Grans % 0.4; Lymphocytes % 20.1; MCH 39.2 pg (27.0-33.0); MCHC 33.9 % (32.0-36.0); MCV 115.7 fL (80-95); Monocytes % 8.5; Neutrophils % 65.4; Nucleated RBC 0 %; Platelet Count 74 10^3/uL (130-400); RBC 2.17 10^6/uL (4.36-5.78); RDW 14.1 % (11.8-14.1); WBC 5.68 10^3/uL (4.4-10.8)
[2020-05-14 08:23] LABS: ALT 29 U/L (16-63); AST 67 U/L (15-37); Albumin 1.3 g/dL (3.4-5.0); Alkaline Phosphatase 203 U/L (46-116); Anion Gap 3.5 mmol/L (3-11); BUN 6 mg/dL (7-18); Bilirubin, Total 5.7 mg/dL (0.2-1.0); CO2 29.5 mmol/L (21.0-32.0); CREATININE 1.04 mg/dL (0.70-1.30); Calcium 7.5 mg/dL (8.5-10.1); Chloride 105 mmol/L (98-107); Glucose 152 mg/dL (74-106); Potassium 3.6 mmol/L (3.5-5.1); Sodium 138 mmol/L (136-145); Total Protein 4.6 g/dL (6.4-8.2)
[2020-05-14 08:35] LABS: ETHANOL BLOOD < 3.0 mg/dL (<3)
[2020-05-14 08:38] LABS: Anisocytosis 1+; Diff Comment Diff Reviewed; Macrocytosis 2+
[2020-05-14 08:39] LABS: Poikilocytes 1+
[2020-05-15 09:25] LABS: AFP Tumor Marker 3.7 ng/mL (<8.1)
== END 2020-05-14 01:49 ==
PROVIDERS: PCP Family Medicine; Visit Provider Nurse Practitioner Adult Health
DX: K70.30 Alcoholic cirrhosis of liver without ascites (principal); C22.0 Liver cell carcinoma; Z76.82 Awaiting organ transplant status
CPT/HCPCS: 36415; 80053; 80320; 82105; 85025; 85610

== ENCOUNTER 2020-07-02 15:54 | Inpatient (IN) | payer OTHER, SELFPAY ==
[2020-07-02] VITALS (36 sets, daily range): BP systolic 102–112; BP diastolic 44–66; PULSE 71–104; RESP 17–20; TEMP 36.7–37.5; O2SAT 92–98
--- NOTE | 2020-07-02 16:00 | RT.EKG_ITS ---
APPROVED REPORT Exam: Resting ECG Patient Location: E HR:71 bpm ECG Measurements Heart Rate 71 AXIS SD 140 P 66 QRSd 106 QRS -8 QT 439 T 26 QTc 477 Conclusion Sinus rhythm...normal P axis, V-rate 60- 99 I have reviewed and interpreted ECG and agree with software generated interpretation.
--- NOTE | 2020-07-02 16:04 | ED.GENADUL_ITS ---
Discharge Plan Disposition Patient Disposition: [facility] INPATIENT Condition: Poor Discharge Details Chief Complaint: Abd Prob Clinical Impression: Alcoholic cirrhosis of liver with ascites, Acute upper GI bleed, Ascites Admit Date/Time: 07/02/20 19:30 Admit Provider: Albert Wang Attending Provider: Albert Wang Primary Care Provider: Joaquin Soliz ED Provider: Tammi Allen Discharge Data Discharge Date/Time-TO BE ENTERED AT DEPARTURE: 07/02/20 20:27 Medical Decision Making Patient is a 44 year old male presenting today with c/c of ascites. He states that he has severe alcohol induced cirrhosis and that he last underwent a paracentesis 2 years ago. He states that this is progressively been worsening over recent weeks. He denies any fevers or chills. States he is feeling very full with a large amount of pressure. He did not, he is having abdominal pain that he is very uncomfortable. He states that this discomfort is making it difficult for him to sleep. Over the past 3 days, is also noted some nausea and vomiting. Reports 3 episodes of emesis today some of which were dark and or bloody. It sounds like his episodes of emesis are not always bloody. He denies any chest pain, shortness of breath. He does report large amount of fatigue with a sounds from difficulty sleeping secondary to his abdominal pressure. Patient is on Lasix and has been taking his medications as prescribed. He is no longer using alcohol. On exam, patient appears chronically ill. He appears fatigued. He is not actively endorsing any nausea nor have I seen him vomit far. His lungs are clear. His abdomen is soft but does have a fluid wave consistent with moderate amount of ascites. He has no pain with palpation. He has BLE edema, no calf tenderness. Concerned for anemia, GI bleed, ascites. Patient likely has underlying worsening of his chronic deisease. At this time, he does not demonstrate an acute abdomen. Will give some gentle hydration. While he does have edema and ascited, he has been vomiting and is tachycardia which has me concerned for decreased intravascular volume. Will give slow hydration to correct this and support kidney function despite his third spacing. Will also give antiemetic. He does not feel that he requires any pain management at this time. Labs reviewed. His anemia is 7.9. Patient is chronically anemic, thisis down from 8.5 on 05/14/20. Unclear if this is associated with GI bleed or chronic disease at this time. He has had no bleeding since being here. INR is 2.2, this was last checed in January at which time it was 2.1. Lactate 2.9. Sodium 134. BUN 20, creatinine 1.28 which is slightly elevated for him. Calcium 7.5, thisis chronic for th epatient. T bili 8.5, this is chronic for the patient. Troponin <0.05. Patient has not given a UA as of yet. Reevaluated the patient. He is feeling iproved after hydration and antiemetic. No N/V here, able to drink small amount of fluids/ice chips. Spoke with Dr. Skelton regarding paracentesis. She advised that if the patient is not in any acute distress associated with his ascites, that he could be drained as soon as possible in the clinic. Consulted with Dr. Rush with GI. Recommends a PPI. Discussed admission over night with repeat blood counts tomorrow. Advised IV PPI overnight, keep him NPO. If he has no evidence of GI bleed tomorrow may be able to be discharged home after paracenteiss. If H&H is dropping, she recommedned EGD. Discussed this plan with the patient, he is in agreement with [facility] plan. Consulted with hospitalist who agrees to admission. HPI General Mode of arrival: ambulatory . Date/Time Provider Initiated Documentation: 07/02/20 15:58 . Limitations to Documentation: no limitations . Information obtained by: patient, RN notes reviewed and old records reviewed . HPI Narrative: Patient is a pleasant 44 year old male with PMH signficant for cirrhosis. he states he is currently on transplant list at [facility]. He reports that he has had issues with ascites and last had a paracentesis about 2 years ago at [facility]. He reports that htis has been progressively worsening and that he has pressure in his abdomen associated with the build up of fluid. He states taht over the past 3 days, he has started to have nausea and vomiting. Reports 3 episode of emesis today. reports that it has been intermittently black. Has had no black or tarry stools. No abdonial pain. No fevers/chills. Denies CP or SOB. No recent change in medications. Patient has chronic BLE edema, no recent change. He states he has been taking his Lasix as prescribed. Related Data Home Medications Medication Instructions Recorded Confirmed multivitamin [Multiple Vitamins] 1 tab PO BID #100 tab 04/13/17 07/02/20 spironolactone 50 mg PO DAILY 06/20/17 07/02/20 cholecalciferol (vitamin D3) 1,000 unit PO DAILY 07/31/17 07/02/20 [Vitamin D3] lactulose 30 g PO DAILY 09/21/17 07/02/20 furosemide [Lasix] 20 mg PO DAILY #14 tab 04/29/20 07/02/20 Previous Rx's Medication Instructions Recorded multivitamin [Multiple Vitamins] 1 tab PO BID #100 tab 04/13/17 furosemide [Lasix] 20 mg PO DAILY #14 tab 04/29/20 Allergies Allergy/AdvReac Type Severity Reaction Status Date / Time No Known Allergies Allergy Unverified 07/02/20 16:04 General Stated Complaint: Abd Prob CHUY: 3 Review of Systems Constitutional Constitutional: Reports as per HPI, Denies chills, Reports fatigue (reports difficulty sleeping with his pressure in his abdomen), Denies fever(s), Denies headache(s), Reports lethargy and Reports poor appetite ENT Ears, Nose, Mouth, and Throat: Denies headache(s) Cardiovascular Cardiovascular: Reports as per HPI, Denies chest pain and Denies dyspnea Respiratory Respiratory: Reports as per HPI, Denies cough and Denies dyspnea Gastrointestinal Gastrointestinal: Reports as per HPI Genitourinary Genitourinary: Denies system reviewed and no additional complaints, except as documented (patient denies any change in urinary habits) Musculoskeletal Musculoskeletal: Reports as per HPI and Denies back pain Integumentary/Breasts Skin/Breast: Reports as per HPI, Reports rash (petechial rash along upper chest and neck, he has had this historically) and Reports jaundice (ports chronic jaundice, no acute change) Neurologic Neurologic: Reports as per HPI and Denies headache(s) Endocrine Endocrine: Reports fatigue (reports difficulty sleeping with his pressure in his abdomen) [facility] Medical History Acute blood loss anemia Acute upper GI bleed Alcoholic cirrhosis of liver without ascites 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 Surgical History S/P TIPS (transjugular intrahepatic portosystemic shunt) Family History (Updated 07/02/20 @ 23:47 by Albert Wang) Other Alcohol abuse Depression Social History Smoking/Tobacco Use Status: Current-Occasional Tobacco Type: cigarettes Smoking risk assessment performed?: Yes Alcohol Intake: former Drug use: Occasionally Substance use type: marijuana Do you feel safe at home: Yes Do you feel safe in your relationship?: Yes Exam Const General: cooperative, comfortable, no acute distress and ill appearing acutely and chronically Nutritional Appearance: average body habitus Orientation: alert, awake and oriented x3 HENMT Head: normal to inspection Mouth: lip normal, tongue normal, mucous membranes dry (dry) and other (jaundice noted, small amount of petechea) Teeth and gingiva: dentition normal Eyes General: appearance abnormal, both eyes (jaundice) Resp Effort & Inspection: normal respiratory effort, able to speak in complete sentences and no respiratory distress Auscultation: clear to auscultation bilaterally, no rales, no rhonchi and no wheezes Cardio Rate: regular rate Rhythm: regular rhythm Heart Sounds: S1 normal and S2 normal GI Inspection: distended, no visible herniation, no visible pulsation and No visible peristalsis Palpation: soft, not firm, no guarding, rigid, nontender and ascites Percussion: fluid wave Auscultation: normal bowel sounds Back/Spine/Pelvis Back: no CVA tenderness Skin General skin exam: no rashes or lesions noted Trauma: no lacerations or abrasions Neuro General: patient alert and patient awake Cognition: normal cognition Speech: speech normal Gait: normal gait Extrem General: capillary refill normal, no calf tenderness and pedal edema bilaterally 1+ Psych Appearance: grossly normal and well kempt Mental Status: mental status grossly normal Speech and Movement: speech and movement normal Course Vital Signs Vital signs: Vital Signs Temperature 36.7 C 07/02/20 15:59 Pulse 104 H 07/02/20 15:59 Respiratory Rate 20 07/02/20 15:59 Blood Pressure 102/66 07/02/20 15:59 Pulse Oximetry 97 07/02/20 15:59 Temperature 36.7 C 07/02/20 15:59 Pulse 104 H 07/02/20 15:59 Respiratory Rate 20 07/02/20 15:59 Blood Pressure 102/66 07/02/20 15:59 Blood Pressure Position Sitting 07/02/20 15:59 Pulse Oximetry 97 07/02/20 15:59 Oxygen Delivery Method Room Air 07/02/20 15:59 Oxygen Flow Rate 0 07/02/20 15:59 Pain Level 5 07/02/20 15:59
[2020-07-02 16:25] LABS: Nucleated RBC 0 %
[2020-07-02 16:27] LABS: Abs Immature Grans 0.03 10^3/uL (0.0-0.06); Absolute Basophil Count 0.07 10^3/uL (0.0-0.2); Absolute Eosinophil Count 0.06 10^3/uL (0.0-0.7); Absolute Lymphocyte Count 1.21 10^3/uL (1.2-3.4); Absolute Monocyte Count 0.73 10^3/uL (0.1-0.8); Absolute Neutrophil Count 5.37 10^3/uL (1.2-6.7); Basophils % 0.9; Eosinophils % 0.8; HCT 24.5 % (40.0-50.0); HGB 7.9 g/dL (13.5-17.5); Immature Grans % 0.4; Lymphocytes % 16.2; MCH 38.3 pg (27.0-33.0); MCHC 32.2 % (32.0-36.0); MCV 118.9 fL (80-95); MPV 10.5 fL (8.0-11.0); Monocytes % 9.8; Neutrophils % 71.9; Platelet Count 114 10^3/uL (130-400); RBC 2.06 10^6/uL (4.36-5.78); RDW 17.2 % (11.8-14.1); RDW-SD 75.1 fL; WBC 7.47 10^3/uL (4.4-10.8)
[2020-07-02 16:42] LABS: Lactate 2.9 mmol/L (0.6-1.4)
[2020-07-02] MEDS: Ondansetron 4 MG/2 ML VIAL IVP (16:42)
[2020-07-02 16:50] LABS: Prothrombin Time 21.4 sec (9.3-11.0)
[2020-07-02] MEDS: Lactated Ringers 1,000 ML 125 ML IV (16:50)
[2020-07-02 16:51] LABS: Anisocytosis 2+; Diff Comment RBC Morph Reviewed; Hypochromasia 1+; Macrocytosis 2+
[2020-07-02 16:51] LABS: Ammonia 34 umol/L (11-32)
[2020-07-02 16:52] LABS: Poikilocytes 1+; Polychromasia Present
[2020-07-02 17:06] LABS: INR 2.2 (0.9-1.1)
[2020-07-02 17:17] LABS: ALT 32 U/L (16-63); AST 89 U/L (15-37); Albumin 1.2 g/dL (3.4-5.0); Alkaline Phosphatase 187 U/L (46-116); Anion Gap 3.3 mmol/L (3-11); BUN 20 mg/dL (7-18); Bilirubin, Total 8.5 mg/dL (0.2-1.0); CO2 28.7 mmol/L (21.0-32.0); CREATININE 1.28 mg/dL (0.70-1.30); Chloride 102 mmol/L (98-107); Glucose 112 mg/dL (74-106); Lipase 324 U/L (73-393); Magnesium 1.9 mg/dL (1.8-2.4); Sodium 134 mmol/L (136-145); Total Protein 5.3 g/dL (6.4-8.2); Troponin I < 0.05 ng/mL (<0.06)
[2020-07-02 17:21] LABS: Calcium 7.5 mg/dL (8.5-10.1)
[2020-07-02] MEDS: Pantoprazole 40 MG VIAL IVP (18:53)
[2020-07-02] MEDS: Normal Saline 50 ML 200 ML (18:57)
--- NOTE | 2020-07-02 19:46 | W.PM.HP.N ---
Date of service: 07/02/20 Time of Service: 19:54 Assessment and Plan Assessment and plan (1) Acute upper GI bleed: Start date: 07/02/20 Status: Acute Assessment and plan: This is a 44-year-old gentleman who has had 2 to 3 day history of nausea with pain and reported hematemesis and also has had a drop in his baseline hemoglobin and hematocrit. He does have chronic anemia. He also has had increased abdominal pain and abdominal girth with ascites not totally responding to recent reinitiation of Aldactone and Lasix. He came to the ED seeking possible paracentesis but with review of his acute upper GI bleed and symptoms, he was admitted for observation for continued bleeding and for further investigation at [facility] with EGD if indicated. The ED physician did review the case with [facility]. We will recheck his CBC before midnight and in the morning. He will not receive transfusion unless his hemoglobin drops further or if he become hemodynamically unstable. He does appear hypovolemic which may be secondary to his diuresis with worsening ascites. We will give him LR at 125 mL/hr and keep him n.p.o. Surgery was consulted. (2) Acute blood loss anemia: Start date: 07/02/20 Status: Acute Assessment and plan: Follow-up CBC every 6 hours and patient has been typed and screened for possible transfusion. If he does require transfusion with continued bleeding, he should be transferred to [facility] in the morning for EGD and definitive treatment with a history of esophageal varices. (3) Alcoholic cirrhosis of liver with ascites: Status: Chronic Assessment and plan: Patient has had recent increase in ascites despite diuretics and surgery has been consulted for paracentesis in the morning if he is hemodynamically stable. Hold diuretics for now with the patient appearing hypovolemic and dehydrated. 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 In the last 2 years he improved off alcohol but still is on the transplant list for liver replacement. He was on diuretics with Aldactone and Lasix when he was first off alcohol and then came off of these medications up to couple weeks ago when he began to have increasing abdominal discomfort and swelling with peripheral edema. He reinitiated the diuretics and had slight improvement but continued to have abdominal bloating and discomfort along with jaundice. He has not slept well for 2 years and states that he used to drink himself to sleep with alcohol to stop his racing mind, blaming the stress at work for his issues. More recently the last 2 or 3 months, he has had increased stress at home and feels that he and his are moving toward separation with concerns about how this will affect his teenage child. He has an older child who is in their early 20s. His works in the [employer] industry in [place], [place] in the same place where he was last a drapery installer. Over the past couple days the patient has had problems eating without vomiting and with vomiting had some hematemesis but was mostly coffee grounds but some blood. He is status post TIPS procedure about a year ago. He states his mouth is dry and he is very thirsty but he cannot keep anything on his stomach. He has not had any diarrhea. He denies any palpitations or syncope. In the ED he was evaluated and found to be slightly more anemic than his baseline and with his last few days of hematemesis it was thought best to admit him for observation of his anemia and possible transfusion if he worsens with IV hydration for hypovolemia. Surgery was consulted to possibly do a paracentesis in the morning and if he continues to have evidence of active blood loss he may require transfer to [facility] [place] EGD. Review of Systems Narrative: 13 point review of systems otherwise unrevealing or stable. Patient felt that he was doing well for least a year and a half off alcohol but feels increased stress with COVID-19 pandemic and marital discourse. 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 Surgical History (Updated 07/02/20 @ 19:51 by Albert Wang) S/P TIPS (transjugular intrahepatic portosystemic shunt) Family History (Updated 07/02/20 @ 23:47 by Albert Wang) Other Alcohol abuse Depression Social History Smoking/Tobacco Use Status: Current-Occasional Tobacco Type: cigarettes Smoking risk assessment performed?: Yes Alcohol Intake: former Drug use: Occasionally Substance use type: marijuana Do you feel safe at home: Yes Do you feel safe in your relationship?: Yes Meds Home Medications and Allergies Home Medications Medication Instructions Recorded Confirmed Type multivitamin [Multiple Vitamins] 1 tab PO BID #100 tab 04/13/17 07/02/20 Rx spironolactone 50 mg PO DAILY 06/20/17 07/02/20 History cholecalciferol (vitamin D3) 1,000 unit PO DAILY 07/31/17 07/02/20 History [Vitamin D3] lactulose 30 g PO DAILY 09/21/17 07/02/20 History furosemide [Lasix] 20 mg PO DAILY #14 tab 04/29/20 07/02/20 Rx Allergies Allergy/AdvReac Type Severity Reaction Status Date / Time No Known Allergies Allergy Unverified 07/02/20 16:04 Exam Narrative Exam Narrative: General: Patient appears older than stated age, thin with protuberant abdomen and diffusely jaundiced. He has a flattened affect with fair eye contact. He is in moderate distress with his dry mouth and abdominal discomfort. He is alert and oriented x3. HEENT: Normocephalic with long hair. Eyes with pupils equal and reactive to light symmetrically, extraocular movement intact and sclera are anicteric. Oropharynx with dry oral mucosa and discoloration of remaining teeth with many missing teeth especially over his upper teeth. External ears and nose are normal. Neck: Supple without JVD. Back: Stooped posture without CVA tenderness. Lungs: Fair aeration and clear to auscultation and percussion. Heart: Regular rate and rhythm with 4/6 systolic murmur over the upper left sternal border and 3/6 holosystolic murmur over the lower sternal border and apex. Abdomen: Protuberant and diffusely guarding though generally soft. Bowel sounds are positive but decreased in all quadrants. Tender to palpation but no rebound. No appreciable hepatosplenomegaly but exam limited by patient guarding. Genitalia/rectal: Exam deferred. Extremities: 2+ pitting edema below the knees over ankles and feet. No clubbing or cyanosis. Muscle wasting diffusely. Skin: Jaundice, dry with decreased turgor and warm with no appreciable rashes. Neuro: Cranial nerves II through XII grossly intact, no focal motor deficits. Generalized weakness. Psych: Flattened affect with depressed mood, decreased insight into depression and mood disorder with self treatment with alcohol in the past. No suicidal ideation. Apathetic and hopeless at times. Remote and recent memory appear intact. Results Labs Result diagrams: 07/02/20 16:10 07/02/20 16:10 Labs: Laboratory Results - last 24 hr 07/02/20 07/02/20 07/02/20 16:10 16:10 16:10 WBC 7.47 RBC 2.06 L Hgb 7.9 L Hct 24.5 L MCV 118.9 H MCH 38.3 H MCHC 32.2 RDW 17.2 H Plt Count 114 L MPV 10.5 Immature Gran % 0.4 Neutrophils % 71.9 Lymphocytes % 16.2 Monocytes % 9.8 Eosinophils % 0.8 Basophils % 0.9 Nucleated RBC % 0 Absolute Neutrophils 5.37 Absolute Lymphocytes 1.21 Absolute Monocytes 0.73 Absolute Eosinophils 0.06 Absolute Basophils 0.07 RBC Morphology See below Polychromasia Present Hypochromasia 1+ Poikilocytosis 1+ Anisocytosis 2+ Macrocytosis 2+ PT INR VBG Lactate 2.9 H* Sodium 134 L Potassium 4.0 Chloride 102 Carbon Dioxide 28.7 Anion Gap 3.3 BUN 20 H Creatinine 1.28 Estimated GFR/1.73 m2 >= 60.00 Glucose 112 H Calcium 7.5 L Magnesium 1.9 Total Bilirubin 8.5 H AST 89 H ALT 32 Alkaline Phosphatase 187 H Ammonia Troponin I < 0.05 Total Protein 5.3 L Albumin 1.2 L Lipase 324 Patient ABO/Rh Antibody Screen 07/02/20 07/02/20 07/02/20 16:10 16:10 16:26 WBC RBC Hgb Hct MCV MCH MCHC RDW Plt Count MPV Immature Gran % Neutrophils % Lymphocytes % Monocytes % Eosinophils % Basophils % Nucleated RBC % Absolute Neutrophils Absolute Lymphocytes Absolute Monocytes Absolute Eosinophils Absolute Basophils RBC Morphology Polychromasia Hypochromasia Poikilocytosis Anisocytosis Macrocytosis PT 21.4 H INR 2.2 H VBG Lactate Sodium Potassium Chloride Carbon Dioxide Anion Gap BUN Creatinine Estimated GFR/1.73 m2 Glucose Calcium Magnesium Total Bilirubin AST ALT Alkaline Phosphatase Ammonia 34 H Troponin I Total Protein Albumin Lipase Patient ABO/Rh O Positive Antibody Screen Negative Last Vital Signs Temp 36.7 C 07/02/20 15:59 Pulse 86 07/02/20 18:46 Resp 20 07/02/20 15:59 BP 112/54 L 07/02/20 18:46 Pulse Ox 96 07/02/20 18:50 COVID-19 Screening Have you, or household traveled for leisure in last 14 days?: No Had IN PERSON contact w/suspected or confirmed C-19 person: No
[2020-07-03] VITALS (15 sets, daily range): BP systolic 107–129; BP diastolic 55–74; PULSE 73–89; RESP 16–20; TEMP 36.1–37.5; O2SAT 92–97
[2020-07-03 00:04] LABS: MCH 37.6 pg (27.0-33.0); MCHC 32.1 % (32.0-36.0); MCV 117.2 fL (80-95); MPV 10.9 fL (8.0-11.0); RBC 1.57 10^6/uL (4.36-5.78); RDW 16.8 % (11.8-14.1); RDW-SD 71.9 fL; WBC 5.65 10^3/uL (4.4-10.8)
[2020-07-03 00:07] LABS: HGB 5.9 g/dL (13.5-17.5)
[2020-07-03 00:08] LABS: HCT 18.4 % (40.0-50.0)
[2020-07-03 00:15] LABS: Platelet Count 73 10^3/uL (130-400)
[2020-07-03] MEDS: Zolpidem 10 MG TAB PO (00:15)
[2020-07-03] MEDS: Lactated Ringers 1,000 ML 125 ML IV (00:45)
[2020-07-03] MEDS: PANTOPRAZOLE 80 MG in Normal Saline 100 ML 10 MG IV ×2 (02:34→11:57)
--- NOTE | 2020-07-03 07:11 | W.SURGCON ---
Documented by User: FARAZ Hair 07/03/20 07:21 Date of service: 07/03/20 Time of Service: 07:11 Assessment and Plan Assessment and plan (1) Acute blood loss anemia: Status: Acute (2) Alcoholic cirrhosis of liver with ascites: Status: Chronic (3) Acute upper GI bleed: Status: Acute Assessment and plan: Following hydration Hgb was noted to be decreased to 5.6L; Hct 18.4L. Patient is receiving blood products currently. Repeat labs are pending. Patient and nursing deny any nausea, vomiting and hemetemesis since admission. Given patient's comorbidities and concern for continued bleeding Mr. Valverde would benefit from a EGD. ER physician had [place] [facility] It would be in the best interest for the patient to be transferred to [facility] [place] an [place], in case of further bleeding and risk of hemorrhage. History of Present Illness History of Present Illness Chief Complaint: Upper GI bleed, Anemia Narrative: 44 y/o male with a history of alcoholic cirrhosis presented to the ER with complaints of feeling abdominal fullness which is associated with hematemesis. Patient was requesting to have a paracentesis to help relieve his symptoms of fullness. He denied any fevers or chills upon arrival. This morning this the patient was sleeping soundly and was difficult to arouse which the nursing staff contributed to him receiving Ambien to sleep. Denies any nausea or vomiting since admission. Upon IV hydration Hgb decreased to 5.9L and Hct 18.4L. He is currently receiving a transfusion. Repeat labs are still pending. 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 Surgical History S/P TIPS (transjugular intrahepatic portosystemic shunt) Family History (Updated 07/02/20 @ 23:47 by Albert Wang) Other Alcohol abuse Depression Social History Smoking/Tobacco Use Status: Current-Occasional Tobacco Type: cigarettes Smoking risk assessment performed?: Yes Alcohol Intake: former Drug use: Occasionally Substance use type: marijuana Do you feel safe at home: Yes Do you feel safe in your relationship?: Yes Exam Const General: no acute distress and ill appearing Orientation: alert Resp Effort & Inspection: normal respiratory effort, no audible wheezes and no cough GI Inspection: distended Palpation: soft, no guarding and nontender Percussion: fluid wave Results Last Vital Signs Temp 36.3 C L 07/03/20 06:37 Pulse 73 07/03/20 06:37 Resp 18 07/03/20 06:37 BP 128/60 07/03/20 06:37 Pulse Ox 92 07/03/20 06:37 Labs Result diagrams: 07/03/20 14:13 07/03/20 09:32 Labs: Laboratory Results - last 24 hr 07/02/20 07/02/20 07/02/20 16:10 16:10 16:10 WBC 7.47 RBC 2.06 L Hgb 7.9 L Hct 24.5 L MCV 118.9 H MCH 38.3 H MCHC 32.2 RDW 17.2 H Plt Count 114 L MPV 10.5 Immature Gran % 0.4 Neutrophils % 71.9 Lymphocytes % 16.2 Monocytes % 9.8 Eosinophils % 0.8 Basophils % 0.9 Nucleated RBC % 0 Absolute Neutrophils 5.37 Absolute Lymphocytes 1.21 Absolute Monocytes 0.73 Absolute Eosinophils 0.06 Absolute Basophils 0.07 RBC Morphology See below Polychromasia Present Hypochromasia 1+ Poikilocytosis 1+ Anisocytosis 2+ Macrocytosis 2+ PT INR VBG Lactate 2.9 H* Sodium 134 L Potassium 4.0 Chloride 102 Carbon Dioxide 28.7 Anion Gap 3.3 BUN 20 H Creatinine 1.28 Estimated GFR/1.73 m2 >= 60.00 Glucose 112 H Calcium 7.5 L Magnesium 1.9 Total Bilirubin 8.5 H AST 89 H ALT 32 Alkaline Phosphatase 187 H Ammonia Troponin I < 0.05 Total Protein 5.3 L Albumin 1.2 L Lipase 324 Patient ABO/Rh Antibody Screen Crossmatch 07/02/20 07/02/20 07/02/20 16:10 16:10 16:26 WBC RBC Hgb Hct MCV MCH MCHC RDW Plt Count MPV Immature Gran % Neutrophils % Lymphocytes % Monocytes % Eosinophils % Basophils % Nucleated RBC % Absolute Neutrophils Absolute Lymphocytes Absolute Monocytes Absolute Eosinophils Absolute Basophils RBC Morphology Polychromasia Hypochromasia Poikilocytosis Anisocytosis Macrocytosis PT 21.4 H INR 2.2 H VBG Lactate Sodium Potassium Chloride Carbon Dioxide Anion Gap BUN Creatinine Estimated GFR/1.73 m2 Glucose Calcium Magnesium Total Bilirubin AST ALT Alkaline Phosphatase Ammonia 34 H Troponin I Total Protein Albumin Lipase Patient ABO/Rh O Positive Antibody Screen Negative Crossmatch See Detail 07/02/20 23:55 WBC 5.65 RBC 1.57 L Hgb 5.9 L* Hct 18.4 L* D MCV 117.2 H MCH 37.6 H MCHC 32.1 RDW 16.8 H Plt Count 73 L MPV 10.9 Immature Gran % Neutrophils % Lymphocytes % Monocytes % Eosinophils % Basophils % Nucleated RBC % Absolute Neutrophils Absolute Lymphocytes Absolute Monocytes Absolute Eosinophils Absolute Basophils RBC Morphology Polychromasia Hypochromasia Poikilocytosis Anisocytosis Macrocytosis PT INR VBG Lactate Sodium Potassium Chloride Carbon Dioxide Anion Gap BUN Creatinine Estimated GFR/1.73 m2 Glucose Calcium Magnesium Total Bilirubin AST ALT Alkaline Phosphatase Ammonia Troponin I Total Protein Albumin Lipase Patient ABO/Rh Antibody Screen Crossmatch Documented by User: Cecelia Lance MD 07/03/20 15:18 PFSH Medical History Acute blood loss anemia Acute upper GI bleed Alcoholic cirrhosis of liver without ascites 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
[2020-07-03] MEDS: Acetaminophen 325 MG TAB 650 MG PO (07:27)
[2020-07-03 08:50] LABS: Bilirubin Moderate (Negative); Blood Moderate (Negative); Clarity Sl Cloudy (Clear); Glucose Negative (Negative); Ketones Negative (Negative); Leukocyte Esterase Small (Negative); Nitrite Negative (Negative); Urobilinogen >=8.0 EU/dL (Up TO 0.2)
[2020-07-03 09:01] LABS: Bacteria Rare HPF (Negative); C & S Indicated? Yes; Casts Negative LPF (Negative); Crystals Negative HPF (Negative); Epithelial Cells Rare HPF (Negative); Mucus Negative (Negative); RBC 20-50 HPF (0-2)
[2020-07-03] MEDS: cefTRIAXone 1 GM/50 ML BAG IVPB (09:25)
[2020-07-03 09:40] LABS: Lactate 1.6 mmol/L (0.6-1.4)
[2020-07-03 09:44] LABS: Abs Immature Grans 0.03 10^3/uL (0.0-0.06); Absolute Basophil Count 0.05 10^3/uL (0.0-0.2); Absolute Eosinophil Count 0.14 10^3/uL (0.0-0.7); Absolute Lymphocyte Count 0.76 10^3/uL (1.2-3.4); Absolute Monocyte Count 0.66 10^3/uL (0.1-0.8); Absolute Neutrophil Count 3.89 10^3/uL (1.2-6.7); Basophils % 0.9; Eosinophils % 2.5; HCT 22.9 % (40.0-50.0); HGB 7.5 g/dL (13.5-17.5); Immature Grans % 0.5; Lymphocytes % 13.7; MCH 35.5 pg (27.0-33.0); MCHC 32.8 % (32.0-36.0); MCV 108.5 fL (80-95); MPV 10.5 fL (8.0-11.0); Monocytes % 11.9; Neutrophils % 70.5; Nucleated RBC 0 %; RBC 2.11 10^6/uL (4.36-5.78); WBC 5.53 10^3/uL (4.4-10.8)
[2020-07-03 10:05] LABS: ALT 23 U/L (16-63); AST 61 U/L (15-37); Albumin 0.9 g/dL (3.4-5.0); Alkaline Phosphatase 138 U/L (46-116); Anion Gap 0.1 mmol/L (3-11); BUN 19 mg/dL (7-18); Bilirubin, Total 8.4 mg/dL (0.2-1.0); CO2 28.9 mmol/L (21.0-32.0); CREATININE 1.23 mg/dL (0.70-1.30); Calcium 7.1 mg/dL (8.5-10.1); Chloride 105 mmol/L (98-107); Glucose 66 mg/dL (74-106); Potassium 3.8 mmol/L (3.5-5.1); Sodium 134 mmol/L (136-145)
[2020-07-03 10:46] LABS: Diff Comment Diff Reviewed; Hypochromasia 2+; Macrocytosis 1+; Microcytosis 1+; Platelet Count 66 10^3/uL (130-400); Polychromasia Present
[2020-07-03 10:47] LABS: Poikilocytes 2+
[2020-07-03] MEDS: Normal Saline Flush 10 ML SYR IVP (10:56)
--- NOTE | 2020-07-03 12:19 | NS.NUTBLAN_ITS ---
Date of service: 07/03/20 Time of Service: 12:19 Nutritional Consult ASSESSMENT: * 44 year old male admitted with ascites, alcoholic liver cirrhosis, acute upper GI bleed. Currently NPO. Up 22 lbs in last 3 months, albumin low with edema, awaiting paracentisis. Labs noted with low glucose (66 mg/dl), elevated bilirubin, liver enzymes and ammonia. Awaiting liver transplant. Consider IV albumin in view of depleted visceral protein stores. Advance diet to Low Sodium as able. Recommend probiotics to assist with ammonia capture in gut. At high nutritional risk in view of altered nutrient utilization, increased nutrient needs and altered nutrient metabolism. Estimated needs: 4701-4947 kcal, 97-121 g protein, 1620 ml fluid. Unable to meet with patient today as busy with testing. NUTRITIONAL DIAGNOSIS: Moderate Malnutrition in view of chronic disease as evidenced by hypoalbuminemia and altered nutrient absorption INTERVENTION: advance diet as tolerated. recommend advance to low sodium diet with 1600 ml fluid restriction probiotics MONITORING AND EVALUATION: abdominal girth, weight, labs, po intake Time Spent in Nutritional Counseling and Treatment: 0
--- NOTE | 2020-07-03 13:37 | PHA.REVIEW ---
Pharmacy Admission Review - Admission Clinical Review (Last Reviewed 07/03/20 @ 09:06 by FARAZ Arana) Ascites (Acute) Acute blood loss anemia (Acute) Acute upper GI bleed (Acute) No Known Allergies Allergy (Unverified 07/02/20 16:04) Height 6 ft 2 in Weight 91.8 kg - Renal Dosing Renal Dosing: BUN 19 mg/dL (7-18) H 07/03/20 09:32 Creatinine 1.23 mg/dL (0.70-1.30) 07/03/20 09:32 Medications needing adjustments: Reviewed - Anticoagulation Anticoagulation: Hgb 7.5 g/dL (13.5-17.5) L 07/03/20 09:32 Hct 22.9 % (40.0-50.0) L D 07/03/20 09:32 Plt Count 66 10^3/uL (130-400) L 07/03/20 09:32 INR (0.9-1.1) 07/03/20 09:32 Creatinine 1.23 mg/dL (0.70-1.30) 07/03/20 09:32 DVT Prohphylaxis: N/A Therapeutic Anticoagulation: N/A - Opiate Usage Evaluate Pain Scale/Pains Meds: N/A - Relevant Labs Sodium 134 mmol/L (136-145) L 07/03/20 09:32 Potassium 3.8 mmol/L (3.5-5.1) 07/03/20 09:32 Chloride 105 mmol/L (98-107) 07/03/20 09:32 Magnesium 1.9 mg/dL (1.8-2.4) 07/02/20 16:10 Electrolytes, C-Reactive P, ESR: Reviewed - DM Control DM Control: Glucose 66 mg/dL (74-106) L 07/03/20 09:32 Insulin Dosing: N/A - Heart Failure/MO Heart Failure/MO: Troponin I < 0.05 ng/mL (<0.06) 07/02/20 16:10 EF%, YARON's, B-Blockers, Diuretics: Reviewed - BP Control BP Control: Blood Pressure 112/64 Blood Pressure 129/72 Blood Pressure 128/60 Blood Pressure 124/74 Blood Pressure 115/70 Blood Pressure 108/62 Blood Pressure 114/68 Blood Pressure 107/57 Blood Pressure 119/56 If elevated: Reviewed - Qtc Review If Elevated: Reviewed (QTc 477) - IV to PO Switch IV Medications: Reviewed - Home Meds Home Med List reviewed: Intervened Relevent Home Meds Not ordered & why?: None ordered yet; Updated furesomide dose and spironolactone dose to reflect most recent precriptions (confirmed with pharmacy) - Current meds Current Medication Order Review: Reviewed (octreotide gtt, protonix gtt) - Comments Comments/Follow Ups[place] [facility] [place]
--- NOTE | 2020-07-03 13:52 | PDOC.CMPRO ---
- If Service Date Differs Date of service: 07/03/20 Time of Service: 13:52 Care Management Progress Note S/O: A: 74 year old male admitted to [facility] with A-fib P: Spencer continues to be closely monitored at this time. Anticipate Spencer will return home when ready per MD with close follow up with his PCP and plan of care. Per MD, Palliative consult will be ordered to discuss goals of care. Spencer will transport via private vehicle with family. cc:
[2020-07-03 14:26] LABS: HCT 23.5 % (40.0-50.0); HGB 7.9 g/dL (13.5-17.5)
--- NOTE | 2020-07-03 15:34 | PDOC.CMIN ---
- If Service Date Differs Date of service: 07/03/20 Time of Service: 15:35 Care Management Initial Assess REASON FOR HOSPITALIZATION:: GI Bleed PAST MEDICAL HISTORY/PAST SURGICAL HISTORY:: Medical History (Updated 07/02/20 @ 23:52 by Albert Wang). Acute blood loss anemia. Acute upper GI bleed. Alcoholic cirrhosis of liver without ascites. 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 Surgical History (Updated 07/02/20 @ 19:51 by Albert Wang). S/P TIPS (transjugular intrahepatic portosystemic shunt) PREVIOUS FUNCTIONAL STATUS/SOCIAL/FAMILY SUPPORTS:: José Manuel lives with his and son in an apartment in [place]. He and his have been for the past few months but are living together until Albino can save enough money to get his own place, He is currently on disability and only receives about $900/month, making it difficult to find affordable housing. He is independent with ADLs and is very close to his 12 year old child who is biologically female but identifies as male. CURRENT FUNCTIONAL STATUS:: Albino was very open and forthcoming about his history of alcoholism and subsequent sobriety. 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 He also shared that his has become an alcoholic and he is concerned aboout the effect that will have on his son at home. He verbalized that he wants to find a place to live where he can have his son with him for stability in the home. CODE STATUS:: Full Code INSURANCE COVERAGE / FINANCIAL ISSUES[place] [facility] [place] CURRENT HOME/COMMUNITY SERVICES/EQUIPMENT:: none currently PRIMARY CARE PHYSICIAN:: Joaquin Soliz POTENTIAL DISCHARGE NEEDS:: Follow up with PCP and discharge plan of care. Possible follow up with surgery if paracentesis is not performed this admission. PATIENT/FAMILY EDUCATION NEEDS:: Discharge plan, limitations, follow up plan, [employer] TRANSPORTATION:: via private vehicle with family PLAN:: Albino will likely return home with no new services. He will follow up with his PCP and discharge plan of care and likely gastroenterology and/or surgery as well. Albino will transport via private vehicle with family. CM will continue to support patient, family and discharge planning needs
[2020-07-03] MEDS: Lactulose 20 GM/30 ML CUP PO ×2 (15:50→19:23)
--- NOTE | 2020-07-03 15:58 | W.PM.PROGNOT ---
Date of Service Date of service: 07/03/20 Time of Service: 15:59 Assessment and Plan Assessment and plan (1) Ascites: Status: Acute Assessment and plan: Dr Lance with general surgery evaluated with bedside US. +/- 1L of ascites. Considering paracentesis. Aware of INR of 2.2 (2) Alcoholic cirrhosis of liver with ascites: Status: Chronic Assessment and plan: Recently restarted on spironolactone and lasix; continue. Rocephin for prophylaxis in background of likely variceal bleed. On lactulose. No bed available at [facility] [place]. If shows overt bleeding or signs/symptoms of bleeding, re-contact [facility] or consider [facility] or other higher level of care facility with GI services. MELD of 26. (3) Acute blood loss anemia: Status: Acute Assessment and plan: Improved with 2 units RBC transfusion. Monitor. 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 Subjective Subjective Patient reports: afebrile Interval history since last seen: Still very tired. C/O diffuse discomfort. No hematemesis since admission No BM since admission. Exam Const General: cooperative and no acute distress Nutritional Appearance: average body habitus Orientation: awake, oriented to person and oriented to place Resp Effort & Inspection: normal respiratory effort Auscultation: clear to auscultation bilaterally Cardio Rate: regular rate Rhythm: regular rhythm Heart Sounds: S1 normal and S2 normal GI Palpation: soft and nontender Auscultation: normal bowel sounds Skin General skin exam: no rashes or lesions noted and other (generalized jaundice) Extrem General: no calf tenderness and edema Laterality: bilateral (3+) Objective Last Vital Signs Temp 37.5 C 07/03/20 15:35 Pulse 82 07/03/20 15:35 Resp 18 07/03/20 15:35 BP 117/67 07/03/20 15:35 Pulse Ox 97 07/03/20 15:35 Laboratory Results - last 24 hr 07/02/20 07/02/20 07/02/20 16:10 16:10 16:10 WBC 7.47 RBC 2.06 L Hgb 7.9 L Hct 24.5 L MCV 118.9 H MCH 38.3 H MCHC 32.2 RDW 17.2 H Plt Count 114 L MPV 10.5 Immature Gran % 0.4 Neutrophils % 71.9 Lymphocytes % 16.2 Monocytes % 9.8 Eosinophils % 0.8 Basophils % 0.9 Nucleated RBC % 0 Absolute Neutrophils 5.37 Absolute Lymphocytes 1.21 Absolute Monocytes 0.73 Absolute Eosinophils 0.06 Absolute Basophils 0.07 RBC Morphology See below Polychromasia Present Hypochromasia 1+ Poikilocytosis 1+ Anisocytosis 2+ Microcytosis Macrocytosis 2+ PT INR VBG Lactate 2.9 H* Sodium 134 L Potassium 4.0 Chloride 102 Carbon Dioxide 28.7 Anion Gap 3.3 BUN 20 H Creatinine 1.28 Estimated GFR/1.73 m2 >= 60.00 Glucose 112 H Calcium 7.5 L Magnesium 1.9 Total Bilirubin 8.5 H AST 89 H ALT 32 Alkaline Phosphatase 187 H Ammonia Troponin I < 0.05 Total Protein 5.3 L Albumin 1.2 L Lipase 324 Urine Color Urine Clarity Urine pH Ur Specific [place] Urine Protein Urine Ketones Urine Blood Urine Nitrite Urine Bilirubin Urine Urobilinogen Ur Leukocyte Esterase Urine RBC Urine WBC Ur Epithelial Cells Urine Crystals Urine Bacteria Urine Casts Urine Mucus Ur Culture Indicated? Urine Glucose Patient ABO/Rh Antibody Screen Crossmatch 07/02/20 07/02/20 07/02/20 16:10 16:10 16:26 WBC RBC Hgb Hct MCV MCH MCHC RDW Plt Count MPV Immature Gran % Neutrophils % Lymphocytes % Monocytes % Eosinophils % Basophils % Nucleated RBC % Absolute Neutrophils Absolute Lymphocytes Absolute Monocytes Absolute Eosinophils Absolute Basophils RBC Morphology Polychromasia Hypochromasia Poikilocytosis Anisocytosis Microcytosis Macrocytosis PT 21.4 H INR 2.2 H VBG Lactate Sodium Potassium Chloride Carbon Dioxide Anion Gap BUN Creatinine Estimated GFR/1.73 m2 Glucose Calcium Magnesium Total Bilirubin AST ALT Alkaline Phosphatase Ammonia 34 H Troponin I Total Protein Albumin Lipase Urine Color Urine Clarity Urine pH Ur Specific [place] Urine Protein Urine Ketones Urine Blood Urine Nitrite Urine Bilirubin Urine Urobilinogen Ur Leukocyte Esterase Urine RBC Urine WBC Ur Epithelial Cells Urine Crystals Urine Bacteria Urine Casts Urine Mucus Ur Culture Indicated? Urine Glucose Patient ABO/Rh O Positive Antibody Screen Negative Crossmatch See Detail 07/02/20 07/03/20 07/03/20 23:55 08:20 09:32 WBC 5.65 RBC 1.57 L Hgb 5.9 L* Hct 18.4 L* D MCV 117.2 H MCH 37.6 H MCHC 32.1 RDW 16.8 H Plt Count 73 L MPV 10.9 Immature Gran % Neutrophils % Lymphocytes % Monocytes % Eosinophils % Basophils % Nucleated RBC % Absolute Neutrophils Absolute Lymphocytes Absolute Monocytes Absolute Eosinophils Absolute Basophils RBC Morphology Polychromasia Hypochromasia Poikilocytosis Anisocytosis Microcytosis Macrocytosis PT INR VBG Lactate 1.6 H Sodium Potassium Chloride Carbon Dioxide Anion Gap BUN Creatinine Estimated GFR/1.73 m2 Glucose Calcium Magnesium Total Bilirubin AST ALT Alkaline Phosphatase Ammonia Troponin I Total Protein Albumin Lipase Urine Color Hooker Urine Clarity Sl cloudy Urine pH 7.0 Ur Specific [place] 1.020 Urine Protein Negative Urine Ketones Negative Urine Blood Moderate H Urine Nitrite Negative Urine Bilirubin Moderate H Urine Urobilinogen >=8.0 Ur Leukocyte Esterase Small H Urine RBC 20-50 H Urine WBC 10-20 H Ur Epithelial Cells Rare Urine Crystals Negative Urine Bacteria Rare Urine Casts Negative Urine Mucus Negative Ur Culture Indicated? Yes Urine Glucose Negative Patient ABO/Rh Antibody Screen Crossmatch 07/03/20 07/03/20 07/03/20 09:32 09:32 09:32 WBC 5.53 RBC 2.11 L Hgb 7.5 L Hct 22.9 L D MCV 108.5 H D MCH 35.5 H MCHC 32.8 RDW Not Applicable Plt Count 66 L MPV 10.5 Immature Gran % 0.5 Neutrophils % 70.5 Lymphocytes % 13.7 Monocytes % 11.9 Eosinophils % 2.5 Basophils % 0.9 Nucleated RBC % 0 Absolute Neutrophils 3.89 Absolute Lymphocytes 0.76 L Absolute Monocytes 0.66 Absolute Eosinophils 0.14 Absolute Basophils 0.05 RBC Morphology See below Polychromasia Present Hypochromasia 2+ Poikilocytosis 2+ Anisocytosis Microcytosis 1+ Macrocytosis 1+ PT INR VBG Lactate Sodium 134 L Potassium 3.8 Chloride 105 Carbon Dioxide 28.9 Anion Gap 0.1 L BUN 19 H Creatinine 1.23 Estimated GFR/1.73 m2 >= 60.00 Glucose 66 L Calcium 7.1 L Magnesium Total Bilirubin 8.4 H AST 61 H ALT 23 Alkaline Phosphatase 138 H Ammonia Troponin I Total Protein 4.0 L Albumin 0.9 L Lipase Urine Color Urine Clarity Urine pH Ur Specific [place] Urine Protein Urine Ketones Urine Blood Urine Nitrite Urine Bilirubin Urine Urobilinogen Ur Leukocyte Esterase Urine RBC Urine WBC Ur Epithelial Cells Urine Crystals Urine Bacteria Urine Casts Urine Mucus Ur Culture Indicated? Urine Glucose Patient ABO/Rh Antibody Screen Crossmatch 07/03/20 14:13 WBC RBC Hgb 7.9 L Hct 23.5 L MCV MCH MCHC RDW Plt Count MPV Immature Gran % Neutrophils % Lymphocytes % Monocytes % Eosinophils % Basophils % Nucleated RBC % Absolute Neutrophils Absolute Lymphocytes Absolute Monocytes Absolute Eosinophils Absolute Basophils RBC Morphology Polychromasia Hypochromasia Poikilocytosis Anisocytosis Microcytosis Macrocytosis PT INR VBG Lactate Sodium Potassium Chloride Carbon Dioxide Anion Gap BUN Creatinine Estimated GFR/1.73 m2 Glucose Calcium Magnesium Total Bilirubin AST ALT Alkaline Phosphatase Ammonia Troponin I Total Protein Albumin Lipase Urine Color Urine Clarity Urine pH Ur Specific [place] Urine Protein Urine Ketones Urine Blood Urine Nitrite Urine Bilirubin Urine Urobilinogen Ur Leukocyte Esterase Urine RBC Urine WBC Ur Epithelial Cells Urine Crystals Urine Bacteria Urine Casts Urine Mucus Ur Culture Indicated? Urine Glucose Patient ABO/Rh Antibody Screen Crossmatch
[2020-07-03 17:54] LABS: INR 2.8 Ratio (0.9-1.1)
[2020-07-03 18:57] LABS: HCT 22.5 % (40.0-50.0)
[2020-07-03 18:58] LABS: HGB 7.5 g/dL (13.5-17.5)
--- NOTE | 2020-07-03 19:05 | DSE_ITS ---
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 Initial hematocrit 18.4. Placed on IV PPI and octreotide infusion. Transfused 2 units pRBC, f/u hematocrit 22.9, stable through the day. BP stable low 100s/systolic. Surgery consulted for consideration of paracentecis, procedure deferred. Conversations were held with patient's care team at [facility] regarding management. On the evening of the I was contacted by care team at [facility] advising transfer due to high risk for complications or deterioration and availability of speciali zed services. Transfer arranged, accepting lonny Ivory. Home Meds and New Rx's Prescriptions: No Action multivitamin [Multiple Vitamins] 1 TAB tablet 1 tab PO BID Qty: 100 RF: 0 cholecalciferol (vitamin D3) [Vitamin D3] 1,000 UNIT capsule 1,000 unit PO DAILY RF: 0 furosemide 40 mg tablet 40 mg PO DAILY RF: 0 spironolactone 50 mg tablet 50 mg PO BID RF: 0 lactulose 10 GM/15 ML solution 30 g PO DAILY RF: 0 Discharge Instructions Activity:: Activity as Tolerated Diet:: Low Sodium Discharge Orders Discharge Orders: Discharge Order (Routine); Ordered 07/03/20 Ordered By: Albert Oakley Discharge Data Discharge Date/Time-TO BE ENTERED AT DEPARTURE: 07/03/20 19:50 DS: Summary Status at Discharge Functional status at discharge: bed bound Overall status at discharge: patient is not back to baseline Mental Status: mental status grossly normal Speech and Movement: speech and movement normal Mood: congruent mood Affect: normal affect Exam Psych Mental Status: mental status grossly normal Speech and Movement: speech and movement normal Mood: congruent mood Affect: normal affect DS: Data Vitals/I&O Vitals and I&O: Vital Signs Temperature 37.5 C 07/03/20 15:35 Temperature Source Tympanic 07/03/20 15:35 Pulse 82 07/03/20 15:35 Pulse Rhythm Regular 07/03/20 16:04 Respiratory Rate 18 07/03/20 15:35 Respiratory Effort 07/03/20 16:04 Respiratory Depth Normal 07/03/20 16:04 Respiratory Pattern Normal 07/03/20 16:04 Blood Pressure 117/67 07/03/20 15:35 Blood Pressure Mean 59 07/02/20 20:01 Blood Pressure Position Sitting 07/02/20 15:59 Pulse Oximetry 97 07/03/20 15:35 Oxygen Delivery Method Room Air 07/03/20 15:35 Oxygen Flow Rate 0 07/03/20 15:35 Pain Level 6 07/03/20 11:06 Intake & Output 07/02/20 07/03/20 07/03/20 23:59 11:59 23:59 Intake Total 2063.416 / 2850.083 786.667 / 2850.083 Output Total 800 / 1100 300 / 1100 Balance 1263.416 / 1750.083 486.667 / 1750.083 Weight 113.398 kg 91.8 kg Intake: IV 1233.416 / 1480.083 246.667 / 1480.083 Oral 180 / 720 540 / 720 Blood Product 650 / 650 Rbc Leuko Reduced Unit 350 / 350 [id number] Rbc Leuko Reduced Unit 300 / 300 [id number] Output: Urine 800 / 1100 300 / 1100 Other: Urine Color Dark Nimo Dark Nimo Urine Appearance Cloudy Clear Urine Odor Strong Normal Comment UA obtained and sent to lab Voiding Methods Urinal Urinal Data Completed and Pending Labs on day of discharge: Labs from last 24 hours 07/03/20 07/03/20 07/03/20 18:35 14:13 09:32 WBC RBC Hgb 7.5 L 7.9 L Hct 22.5 L 23.5 L MCV MCH MCHC RDW Plt Count MPV Immature Gran % Neutrophils % Lymphocytes % Monocytes % Eosinophils % Basophils % Nucleated RBC % Absolute Neutrophils Absolute Lymphocytes Absolute Monocytes Absolute Eosinophils Absolute Basophils RBC Morphology Polychromasia Hypochromasia Poikilocytosis Microcytosis Macrocytosis PT 32.4 H INR 2.8 H VBG Lactate Sodium Potassium Chloride Carbon Dioxide Anion Gap BUN Creatinine Estimated GFR/1.73 m2 Glucose Calcium Total Bilirubin AST ALT Alkaline Phosphatase Total Protein Albumin Urine Color Urine Clarity Urine pH Ur Specific [place] Urine Protein Urine Ketones Urine Blood Urine Nitrite Urine Bilirubin Urine Urobilinogen Ur Leukocyte Esterase Urine RBC Urine WBC Ur Epithelial Cells Urine Crystals Urine Bacteria Urine Casts Urine Mucus Ur Culture Indicated? Urine Glucose COVID-19 PCR Nasopharyn COVID-19 PCR Ref Test Perform Site Patient ABO/Rh Antibody Screen Crossmatch 07/03/20 07/03/20 07/03/20 09:32 09:32 09:32 WBC 5.53 RBC 2.11 L Hgb 7.5 L Hct 22.9 L D MCV 108.5 H D MCH 35.5 H MCHC 32.8 RDW Not Applicable Plt Count 66 L MPV 10.5 Immature Gran % 0.5 Neutrophils % 70.5 Lymphocytes % 13.7 Monocytes % 11.9 Eosinophils % 2.5 Basophils % 0.9 Nucleated RBC % 0 Absolute Neutrophils 3.89 Absolute Lymphocytes 0.76 L Absolute Monocytes 0.66 Absolute Eosinophils 0.14 Absolute Basophils 0.05 RBC Morphology See below Polychromasia Present Hypochromasia 2+ Poikilocytosis 2+ Microcytosis 1+ Macrocytosis 1+ PT INR VBG Lactate Sodium 134 L Potassium 3.8 Chloride 105 Carbon Dioxide 28.9 Anion Gap 0.1 L BUN 19 H Creatinine 1.23 Estimated GFR/1.73 m2 >= 60.00 Glucose 66 L Calcium 7.1 L Total Bilirubin 8.4 H AST 61 H ALT 23 Alkaline Phosphatase 138 H Total Protein 4.0 L Albumin 0.9 L Urine Color Urine Clarity Urine pH Ur Specific [place] Urine Protein Urine Ketones Urine Blood Urine Nitrite Urine Bilirubin Urine Urobilinogen Ur Leukocyte Esterase Urine RBC Urine WBC Ur Epithelial Cells Urine Crystals Urine Bacteria Urine Casts Urine Mucus Ur Culture Indicated? Urine Glucose COVID-19 PCR Nasopharyn COVID-19 PCR Ref Test Perform Site Patient ABO/Rh Antibody Screen Crossmatch 07/03/20 07/03/20 07/02/20 09:32 08:20 23:55 WBC 5.65 RBC 1.57 L Hgb 5.9 L* Hct 18.4 L* D MCV 117.2 H MCH 37.6 H MCHC 32.1 RDW 16.8 H Plt Count 73 L MPV 10.9 Immature Gran % Neutrophils % Lymphocytes % Monocytes % Eosinophils % Basophils % Nucleated RBC % Absolute Neutrophils Absolute Lymphocytes Absolute Monocytes Absolute Eosinophils Absolute Basophils RBC Morphology Polychromasia Hypochromasia Poikilocytosis Microcytosis Macrocytosis PT INR VBG Lactate 1.6 H Sodium Potassium Chloride Carbon Dioxide Anion Gap BUN Creatinine Estimated GFR/1.73 m2 Glucose Calcium Total Bilirubin AST ALT Alkaline Phosphatase Total Protein Albumin Urine Color [place] Urine Clarity Sl cloudy Urine pH 7.0 Ur Specific [place] 1.020 Urine Protein Negative Urine Ketones Negative Urine Blood Moderate H Urine Nitrite Negative Urine Bilirubin Moderate H Urine Urobilinogen >=8.0 Ur Leukocyte Esterase Small H Urine RBC 20-50 H Urine WBC 10-20 H Ur Epithelial Cells Rare Urine Crystals Negative Urine Bacteria Rare Urine Casts Negative Urine Mucus Negative Ur Culture Indicated? Yes Urine Glucose Negative COVID-19 PCR Nasopharyn COVID-19 PCR Ref Test Perform Site Patient ABO/Rh Antibody Screen Crossmatch 07/02/20 07/02/20 20:25 16:10 WBC RBC Hgb Hct MCV MCH MCHC RDW Plt Count MPV Immature Gran % Neutrophils % Lymphocytes % Monocytes % Eosinophils % Basophils % Nucleated RBC % Absolute Neutrophils Absolute Lymphocytes Absolute Monocytes Absolute Eosinophils Absolute Basophils RBC Morphology Polychromasia Hypochromasia Poikilocytosis Microcytosis Macrocytosis PT INR VBG Lactate Sodium Potassium Chloride Carbon Dioxide Anion Gap BUN Creatinine Estimated GFR/1.73 m2 Glucose Calcium Total Bilirubin AST ALT Alkaline Phosphatase Total Protein Albumin Urine Color Urine Clarity Urine pH Ur Specific [place] Urine Protein Urine Ketones Urine Blood Urine Nitrite Urine Bilirubin Urine Urobilinogen Ur Leukocyte Esterase Urine RBC Urine WBC Ur Epithelial Cells Urine Crystals Urine Bacteria Urine Casts Urine Mucus Ur Culture Indicated? 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
--- NOTE | 2020-07-03 19:09 | W.PM.PROGNOT ---
Date of Service Date of service: 07/03/20 Time of Service: 19:09 Subjective Subjective Interval history since last seen: Patient with alcoholic cirrhosis, admitted with UGI bleed manifesting with hematemesis and coffee ground emesis. Initial Hct 18.4, with somewhat suboptimal response to 2 units pRBC (peak 23.5, most recent 22.5). BP stable in 110s/systolic. Remains on PPI and octreotide infusion. [facility] consulted and now has bed availability and requests transfer. This is patient well known to their service. Meds: see list PMH: see list Disposition: [facility], attending Dr. Ivory. Transfer via ambulance. Objective Last Vital Signs Temp 37.5 C 07/03/20 15:35 Pulse 82 07/03/20 15:35 Resp 18 07/03/20 15:35 BP 117/67 07/03/20 15:35 Pulse Ox 97 07/03/20 15:35 Laboratory Results - last 24 hr 07/02/20 07/02/20 07/03/20 16:10 23:55 08:20 WBC 5.65 RBC 1.57 L Hgb 5.9 L* Hct 18.4 L* D MCV 117.2 H MCH 37.6 H MCHC 32.1 RDW 16.8 H Plt Count 73 L MPV 10.9 Immature Gran % Neutrophils % Lymphocytes % Monocytes % Eosinophils % Basophils % Nucleated RBC % Absolute Neutrophils Absolute Lymphocytes Absolute Monocytes Absolute Eosinophils Absolute Basophils RBC Morphology Polychromasia Hypochromasia Poikilocytosis Microcytosis Macrocytosis PT INR VBG Lactate Sodium Potassium Chloride Carbon Dioxide Anion Gap BUN Creatinine Estimated GFR/1.73 m2 Glucose Calcium Total Bilirubin AST ALT Alkaline Phosphatase Total Protein Albumin Urine Color [place] Urine Clarity Sl cloudy Urine pH 7.0 Ur Specific [place] 1.020 Urine Protein Negative Urine Ketones Negative Urine Blood Moderate H Urine Nitrite Negative Urine Bilirubin Moderate H Urine Urobilinogen >=8.0 Ur Leukocyte Esterase Small H Urine RBC 20-50 H Urine WBC 10-20 H Ur Epithelial Cells Rare Urine Crystals Negative Urine Bacteria Rare Urine Casts Negative Urine Mucus Negative Ur Culture Indicated? Yes Urine Glucose Negative Patient ABO/Rh O Positive Antibody Screen Negative Crossmatch See Detail 07/03/20 07/03/20 07/03/20 09:32 09:32 09:32 WBC 5.53 RBC 2.11 L Hgb 7.5 L Hct 22.9 L D MCV 108.5 H D MCH 35.5 H MCHC 32.8 RDW Not Applicable Plt Count 66 L MPV 10.5 Immature Gran % 0.5 Neutrophils % 70.5 Lymphocytes % 13.7 Monocytes % 11.9 Eosinophils % 2.5 Basophils % 0.9 Nucleated RBC % 0 Absolute Neutrophils 3.89 Absolute Lymphocytes 0.76 L Absolute Monocytes 0.66 Absolute Eosinophils 0.14 Absolute Basophils 0.05 RBC Morphology See below Polychromasia Present Hypochromasia 2+ Poikilocytosis 2+ Microcytosis 1+ Macrocytosis 1+ PT INR VBG Lactate 1.6 H Sodium 134 L Potassium 3.8 Chloride 105 Carbon Dioxide 28.9 Anion Gap 0.1 L BUN 19 H Creatinine 1.23 Estimated GFR/1.73 m2 >= 60.00 Glucose 66 L Calcium 7.1 L Total Bilirubin 8.4 H AST 61 H ALT 23 Alkaline Phosphatase 138 H Total Protein 4.0 L Albumin 0.9 L Urine Color Urine Clarity Urine pH Ur Specific [place] Urine Protein Urine Ketones Urine Blood Urine Nitrite Urine Bilirubin Urine Urobilinogen Ur Leukocyte Esterase Urine RBC Urine WBC Ur Epithelial Cells Urine Crystals Urine Bacteria Urine Casts Urine Mucus Ur Culture Indicated? Urine Glucose Patient ABO/Rh Antibody Screen Crossmatch 07/03/20 07/03/20 07/03/20 09:32 09:32 14:13 WBC RBC Hgb 7.9 L Hct 23.5 L MCV MCH MCHC RDW Plt Count MPV Immature Gran % Neutrophils % Lymphocytes % Monocytes % Eosinophils % Basophils % Nucleated RBC % Absolute Neutrophils Absolute Lymphocytes Absolute Monocytes Absolute Eosinophils Absolute Basophils RBC Morphology Polychromasia Hypochromasia Poikilocytosis Microcytosis Macrocytosis PT 32.4 H INR 2.8 H VBG Lactate Sodium Potassium Chloride Carbon Dioxide Anion Gap BUN Creatinine Estimated GFR/1.73 m2 Glucose Calcium Total Bilirubin AST ALT Alkaline Phosphatase Total Protein Albumin Urine Color Urine Clarity Urine pH Ur Specific [place] Urine Protein Urine Ketones Urine Blood Urine Nitrite Urine Bilirubin Urine Urobilinogen Ur Leukocyte Esterase Urine RBC Urine WBC Ur Epithelial Cells Urine Crystals Urine Bacteria Urine Casts Urine Mucus Ur Culture Indicated? Urine Glucose Patient ABO/Rh Antibody Screen Crossmatch 07/03/20 18:35 WBC RBC Hgb 7.5 L Hct 22.5 L MCV MCH MCHC RDW Plt Count MPV Immature Gran % Neutrophils % Lymphocytes % Monocytes % Eosinophils % Basophils % Nucleated RBC % Absolute Neutrophils Absolute Lymphocytes Absolute Monocytes Absolute Eosinophils Absolute Basophils RBC Morphology Polychromasia Hypochromasia Poikilocytosis Microcytosis Macrocytosis PT INR VBG Lactate Sodium Potassium Chloride Carbon Dioxide Anion Gap BUN Creatinine Estimated GFR/1.73 m2 Glucose Calcium Total Bilirubin AST ALT Alkaline Phosphatase Total Protein Albumin Urine Color Urine Clarity Urine pH Ur Specific [place] Urine Protein Urine Ketones Urine Blood Urine Nitrite Urine Bilirubin Urine Urobilinogen Ur Leukocyte Esterase Urine RBC Urine WBC Ur Epithelial Cells Urine Crystals Urine Bacteria Urine Casts Urine Mucus Ur Culture Indicated? Urine Glucose Patient ABO/Rh Antibody Screen Crossmatch
[2020-07-03] MEDS: Spironolactone 50 MG TAB PO (19:23)
[2020-07-03 21:31] LABS: COVID-19 RT-PCR UVMMC Result Negative (Negative)
== END 2020-07-03 19:50 | disposition short-term general hospital (02) | DRG 378 ==
LOC: ER 19:45 → MS 20:30
PROVIDERS: Family Medicine; Admitting Provider Family Medicine; Emergency Provider Physician Assistant; PCP Family Medicine; Visit Provider Family Medicine
DX: K92.0 Hematemesis (principal); D62 Acute posthemorrhagic anemia; D68.4 Acquired coagulation factor deficiency; K70.31 Alcoholic cirrhosis of liver with ascites; F10.21 Alcohol dependence, in remission; I85.10 Secondary esophageal varices without bleeding; F17.210 Nicotine dependence, cigarettes, uncomplicated; E86.0 Dehydration
CPT/HCPCS: 36415; 36430; 80053; 83690; 85027; 85610; 86850; 86900; 86901; 86920; 87077; 93005; 96361; 96374; 96375; 99223; 99231; 99232; 99238; 99253; 99285; U0003; 81003; 81015; 82140; 83605; 83735; 84484; 85014; 85018; 85025; 87086; 87186; 93010; J0696; J2354; J2405; P9016

== ENCOUNTER 2020-08-01 03:22 | Outpatient (CLI) | payer OTHER, SELFPAY ==
[2020-08-01 13:33] LABS: MCH 36.4 pg (27.0-33.0); MCHC 32.3 % (32.0-36.0); MCV 112.7 fL (80-95); MPV 10.1 fL (8.0-11.0); RBC 2.75 10^6/uL (4.36-5.78); RDW 17.1 % (11.8-14.1); RDW-SD 70.9 fL; WBC 6.02 10^3/uL (4.4-10.8)
[2020-08-01 13:58] LABS: Platelet Count 96 10^3/uL (130-400)
[2020-08-01 14:01] LABS: ALT 28 U/L (16-63); AST 63 U/L (15-37); Albumin 1.6 g/dL (3.4-5.0); Alkaline Phosphatase 230 U/L (46-116); Anion Gap 3.8 mmol/L (3-11); BUN 12 mg/dL (7-18); Bilirubin, Total 9.1 mg/dL (0.2-1.0); CO2 26.2 mmol/L (21.0-32.0); CREATININE 1.12 mg/dL (0.70-1.30); Calcium 8.1 mg/dL (8.5-10.1); Chloride 108 mmol/L (98-107); Glucose 151 mg/dL (74-106); Potassium 4.1 mmol/L (3.5-5.1); Sodium 138 mmol/L (136-145); Total Protein 6.4 g/dL (6.4-8.2)
== END 2020-08-01 03:42 ==
PROVIDERS: PCP Family Medicine; Visit Provider Family Medicine
DX: D64.9 Anemia, unspecified (principal); K70.30 Alcoholic cirrhosis of liver without ascites
CPT/HCPCS: 36415; 80053; 85027

== ENCOUNTER 2020-08-03 23:36 | Emergency (ER) | payer OTHER, SELFPAY ==
--- NOTE | 2020-08-03 23:30 | RT.EKG_ITS ---
APPROVED REPORT Exam: Resting ECG Patient Location: E HR:93 bpm ECG Measurements Heart Rate 93 AXIS SC [id number] P [id number] QRSd 104 QRS -15 QT 369 T 79 QTc 461 Conclusion Atrial fibrillation...V-rate 93- 94, irreg A-activity Abnormal T, consider ischemia, anterior leads...T <-0.20mV, V2-V4 PHYSICIAN: Sinus rhythm, NOT atrial fibrillation. Rate 93, QTc unremarkable, inverted T waves and RS R prime in V2, however this is present on prior EKG from 07/02/2020. No evidence of STEMI. No signif icant acute change.
--- NOTE | 2020-08-03 23:36 | W.ED.GENAD ---
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 He presents today for evaluation of vomiting and altered mental status. Per EMS the patient has been vomiting nonstop for the last hour or so. stated that he was slightly altered compared to normal. No blood in the vomitus. Patient was denying any significant abdominal pain. When the patient was getting loaded into the stretcher he had a notable bowel movement. Patient denies any chest pain. He otherwise does not have anything else to add to the history. No other complaints at this time. No other modifying factors. Physical exam demonstrates a slightly altered male, no meningeal signs, no asterixis. Abdomen does not appear to be overly tender, definitely not distended, no signs of ascites. The patient is currently covered in feces from his recent bowel movement. We will clean the patient up, evaluate. Signs of the altered mental status, including elevated ammonia or abnormalities intracranially. We will get a CT scan of the abdomen, chest x-ray for the mild crackles noted at the bases, will monitor closely and reassess. 12:57 AM I was able to get in contact with the patient's , and discussed the case with her. She states that the patient's last known well was 24 hours ago. She states that he has been spending the entire day in his room today because he did not feel well. When she did going to check on him later than in the evening because of the vomiting she noticed that he was notably altered. She denies any IV or illicit drug use, any alcohol intake, or any other change in medications. I have been notably absent from any social engagements out of concern for José Manuel's wellbeing and nayeli Covid, and she notably denies any other sick contacts. Patient's laboratory work-up has returned, mild white count of 13, pH of 7.3, PCO2 is 44, lactate is notably elevated at 7.2, bilirubin is high at 13, which is higher than normal for him. Salicylates acetaminophen and EtOH levels all normal. Lipase normal. We are gently rehydrating the patient at this time with 500 cc bolus. No change in mental status, however he remains responsive to all questions and will follow commands. GCS is 14. Pending CT scan results at this time. 2:[address] results have returned, CT head demonstrates age-indeterminate subdural collections greater on the left may be subacute or chronic. Minimal midline shift to the right. Chest x-ray/CT of the abdomen pelvis demonstrates pleural effusion on the left, atelectasis and potential superimposed pneumonia. There is also evidence of a mild anterior wedge deformity of T12 age-indeterminate, as well as cirrhosis, and new intrahepatic biliary ductal dilatation and periportal edema. [facility] was immediately called, and transfer was requested in addition to consultation with neurosurgery and trauma. We are pending callback at this time. Laboratory work-up is returning, PTT is 36.8, PT and INR per lab are unrecognizable and not entered on the machine. However after discussion with the civil laboratory technician she feels that a rough calculated guesstimate would place the PT at 23.6 and the INR 2.4. To go in and immediately reevaluate the patient after results, patient is actually now demonstrating a notable improvement in his mental status. He is still altered, however he is able to answer questions much better now, continues to follow commands. He shows no signs of obtundation at this time. I did question him and ask him if he is falling, and he is remarkably specific and does state that day/yesterday he did fall and hit his head. Pending consultation from [facility]. Patient will require transfer. With the evidence of pneumonia in conjunction with effusion we will give vancomycin, Zosyn and doxycycline for pneumonia with atypical coverage. 2:[address] Hutson of [facility] neurosurgery, he personally reviewed the images, and we discussed the case, he feels that the bleeds are more incidental and there is no evidence of an acute bleed. He feels that the altered mental status would be more likely from a concussion and not the bleed. He states that he does not feel that there is concerning midline shift upon his review of the images. We did discuss indications for cryoprecipitate, or other coagulation factors and he felt that they were not indicated at this stage. He recommends deferment of care to medicine. 3:15 AM Discussed the case with , he to feels that the patient's needs would be best met at [facility] with his multiple comorbidities and current medical issues. He has agreed to accept the patient to [facility] for transfer. No additional recommendations at this time. I have extensively reviewed the treatment plan with the patient. I have addressed all patient concerns at this time. I have also discussed the plan with the admitting physician and they agree with the current assessment and plan and have agreed to assume responsibility for the patient. All parties demonstrate verbal understanding and agreement with our assessment and plan at this time. At time of transfer the patient was reassessed and continued to demonstrate current medical stability. Improvement of mental status is present. No signs of acute respiratory distress requiring intubation, hemodynamic instability requiring pressor support, or rapidly declining mental status. The patient is stable for transport. EKG 23: 56 Sinus rhythm, NOT atrial fibrillation. Rate 93, QTc unremarkable, inverted T waves and RSR prime in V2, however this is present on prior EKG from 07/02/2020. No evidence of STEMI. No significant acute change. IMPRESSION: Age-indeterminate subdural collections greater on the left which may be subacute to chronic. Minimal midline shift to the right. Continued CT follow-up within 24 hours may be helpful as clinically indicated No acute intracranial hemorrhage observed Thank you for allowing us to participate in the care of your patient. Dictated and Authenticated by: Luis Rubalcava MD 08/04/2020 1:19 AM Eastern Time ([place] & [place]) FINDINGS: Lungs: No pulmonary vascular congestion. Opacity at the left lung base with blunting of the left costophrenic angle most likely represents a moderate left pleural effusion with adjacent atelectasis, superimposed pneumonia is not excluded. The right lung is clear. No pneumothorax. Pleural space: See Lungs finding. Heart/Mediastinum: The cardiomediastinal silhouette shows no cardiac enlargement. Bones/joints: No acute findings. Intraperitoneal space: Embolization material in the left upper quadrant. IMPRESSION: Moderate left pleural effusion with adjacent atelectasis, superimposed pneumonia is not excluded. Thank you for allowing us to participate in the care of your patient. Dictated and Authenticated by: Anne Hickey MD 08/04/2020 1:20 AM Eastern Time ([place] & [place]) IMPRESSION: 1. Mild anterior wedge deformity at T12, age indeterminate. No additional findings concerning for acute traumatic injury. 2. Cirrhosis with sequelae of portal hypertension including moderate ascites. New intrahepatic biliary ductal dilation and/or periportal edema, unknown etiology. Thank you for allowing us to participate in the care of your patient. Dictated and Authenticated by: Anne Hickey MD 08/04/2020 2:13 AM Eastern Time ([place] & [place]) HPI General Date/Time Provider Initiated Documentation: 08/03/20 23:59. HPI Narrative: 44-year-old male with a past medical history of alcoholic cirrhosis of the liver with stage IV cirrhosis/failure. TIPS procedure, he is on transplant list. He presents today for evaluation of vomiting and altered mental status. Per EMS the patient has been vomiting nonstop for the last hour or so. stated that he was slightly altered compared to normal. No blood in the vomitus. Patient was denying any significant abdominal pain. When the patient was getting loaded into the stretcher he had a notable bowel movement. Patient denies any chest pain. He otherwise does not have anything else to add to the history. No other complaints at this time. No other modifying factors. 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 3.ENT: Atraumatic external nose and ears. Moist MM. Neck: Symmetric, trachea midline, No thyromegaly. Patient demonstrates good movement of cervical neck. There is no nuchal rigidity, no nuchal tenderness. Patient is able to flex the neck without any difficulty or significant pain. Negative Kernig's and Brudzinski sign. 4.CVS: +S1/S2, No murmurs or gallops. Peripheral pulses 2+ and equal in all extremities. Brisk capillary refill in all extremities. 5.RESP: Unlabored respiratory effort. Minimal crackles in the lower lung field. No wheezes or rhonchi 6.GI: Soft, Nontender/Nondistended. No guarding or rebound. No ascites 7.MSK: Normocephalic/Atraumatic, Extremities w/o deformity or ttp No cyanosis or clubbing, Normal movement of all extremities. No asterixis. 8.Skin: Warm, Dry. No rashes or lesions. 9.Neuro: general duty nurse II-XII grossly intact. Sensation grossly intact, no focal neurologic deficits. 10.Psych: (AAO) x1, muted affect. Slightly confused.
[2020-08-03 23:38] VITALS: BP 125/65; PULSE 90; RESP 18; TEMP 36.7; O2SAT 99
[2020-08-03 23:50] VITALS: RESP 18
[2020-08-03 23:52] VITALS: BP 125/65; PULSE 92; PULSE 96; RESP 17; O2SAT 99
[2020-08-03 23:53] VITALS: RESP 14
[2020-08-04] VITALS (10 sets, daily range): BP systolic 128–142; BP diastolic 70–75; PULSE 83–93; RESP 11–18; TEMP 36.7; O2SAT 98–100
[2020-08-04] MEDS: Normal Saline 500 ML IV (00:01)
[2020-08-04] MEDS: Ondansetron 4 MG/2 ML VIAL IVP (00:02)
[2020-08-04 00:03] LABS: Absolute Lymphocyte Count 0.47 10^3/uL (1.2-3.4); Absolute Neutrophil Count 11.67 10^3/uL (1.2-6.7); Basophils % 0.4; HCT 32.9 % (40.0-50.0); HGB 10.7 g/dL (13.5-17.5); Immature Grans % 0.7; Lymphocytes % 3.5; MCH 37.2 pg (27.0-33.0); MCHC 32.5 % (32.0-36.0); MCV 114.2 fL (80-95); MPV 10.6 fL (8.0-11.0); Monocytes % 8.8; Neutrophils % 86.6; Nucleated RBC 0 %; Platelet Count 109 10^3/uL (130-400); RBC 2.88 10^6/uL (4.36-5.78); RDW 16.3 % (11.8-14.1); RDW-SD 67.8 fL; WBC 13.48 10^3/uL (4.4-10.8)
[2020-08-04 00:15] LABS: BE (Venous) -5 mmol/L (-2-3); HCO3 (Venous) 21 mmol/L (23-28); O2 Sat (Venous) 87 %; TCO2 (Venous) 20 mmol/L (24-29); pCO2 (Venous) 44 mmHg (41-51); pO2 (Venous) 60 mmHg
[2020-08-04 00:21] LABS: Bilirubin, Direct 6.07 mg/dL (0.00-0.20); Lactate 7.2 mmol/L (0.6-1.4)
[2020-08-04 00:26] LABS: Ammonia 47 umol/L (11-32)
[2020-08-04 00:27] LABS: ALT 39 U/L (16-63); AST 72 U/L (15-37); Albumin 1.9 g/dL (3.4-5.0); Alkaline Phosphatase 233 U/L (46-116); Anion Gap 11.8 mmol/L (3-11); BUN 10 mg/dL (7-18); Bilirubin, Total 12.9 mg/dL (0.2-1.0); CO2 21.2 mmol/L (21.0-32.0); CREATININE 1.04 mg/dL (0.70-1.30); Calcium 8.4 mg/dL (8.5-10.1); Chloride 107 mmol/L (98-107); Glucose 124 mg/dL (74-106); Lipase 72 U/L (73-393); Potassium 4.1 mmol/L (3.5-5.1); Sodium 140 mmol/L (136-145)
[2020-08-04 00:28] LABS: ETHANOL BLOOD < 3.0 mg/dL (<3); Troponin I < 0.05 ng/mL (<0.06)
[2020-08-04 00:29] LABS: PTT Activated 36.8 sec (21.0-27.5)
[2020-08-04 00:42] LABS: Acetaminophen < 2 ug/mL (10-30); Salicylate < 2.8 mg/dL (2.8-20.0)
[2020-08-04 00:43] LABS: Absolute Basophil Count 0.05 10^3/uL (0.0-0.2); Absolute Monocyte Count 1.19 10^3/uL (0.1-0.8)
[2020-08-04 00:44] LABS: Macrocytosis 1+
[2020-08-04 00:45] LABS: Poikilocytes 2+
--- NOTE | 2020-08-04 01:19 | DI.VRAD_ITS ---
PROCEDURE INFORMATION: Exam: CT Head Without Contrast Exam date and time: 08/04/2020 12:42 AM Age: 44 years old Clinical indication: Other: Altered hepatic failure TECHNIQUE: Imaging protocol: Computed tomography of the head without contrast. COMPARISON: CT HEAD WITHOUT CONTRAST 04/08/2017 3:16 PM FINDINGS: Mildly limited due to streak and motion artifact Brain: Subdural collections greater on the left measuring up to 7-8 mm in thickness of indeterminate age. Minimal midline shift to the right of approximately 2 mm. No acute hemorrhage Cerebral ventricles: No ventriculomegaly. Bones/joints: Unremarkable. No acute fracture. Paranasal sinuses: Visualized sinuses are unremarkable. No fluid levels. Mastoid air cells: Visualized mastoid air cells are well aerated. Soft tissues: Unremarkable. IMPRESSION: Age-indeterminate subdural collections greater on the left which may be subacute to chronic. Minimal midline shift to the right. Continued CT follow-up within 24 hours may be helpful as clinically indicated No acute intracranial hemorrhage observed Dictated and Authenticated by: Luis Rubalcava MD. Ordering:MARIANNE La MD
--- NOTE | 2020-08-04 01:21 | DI.VRAD_ITS ---
PROCEDURE INFORMATION: Exam: XR Chest, 2 Views Exam date and time: 08/04/2020 1:04 AM Age: 44 years old Clinical indication: Other: Hepatic failure vomiting abd pain altered TECHNIQUE: Imaging protocol: XR of the chest Views: 2 views. COMPARISON: CT CHEST ABD PELVIS WITH CONTRAST 06/20/2017 9:47 AM FINDINGS: Lungs: No pulmonary vascular congestion. Opacity at the left lung base with blunting of the left costophrenic angle most likely represents a moderate left pleural effusion with adjacent atelectasis, superimposed pneumonia is not excluded. The right lung is clear. No pneumothorax. Pleural space: See Lungs finding. Heart/Mediastinum: The cardiomediastinal silhouette shows no cardiac enlargement. Bones/joints: No acute findings. Intraperitoneal space: Embolization material in the left upper quadrant. IMPRESSION: Moderate left pleural effusion with adjacent atelectasis, superimposed pneumonia is not excluded. Dictated and Authenticated by: Anne Hickey MD. Ordering:MARIANNE La MD
[2020-08-04] MEDS: PIPERACILLIN/TAZO 3.375 GM in Normal Saline 50 ML IVPB (01:36)
[2020-08-04] MEDS: DOXYCYCLINE 100 MG in Normal Saline 100 ML IVPB (02:10)
--- NOTE | 2020-08-04 02:14 | DI.VRAD_ITS ---
PROCEDURE INFORMATION: Exam: CT Abdomen And Pelvis With Contrast Exam date and time: 08/04/2020 12:50 AM Age: 44 years old Clinical indication: Injury or trauma; Fall; Other: Abd pain vomiting altered hepatic failure; Blunt; Generalized TECHNIQUE: Imaging protocol: Computed tomography of the abdomen and pelvis with intravenous contrast. Contrast material: OMNI 350; Contrast volume: 100 ml; Contrast route: INTRAVENOUS (IV); COMPARISON: CT ABD PELVIS WITH CONTRAST 07/31/2017 11:36 AM FINDINGS: Lungs: The right lung bases clear. Small left pleural effusion with atelectasis and/or pneumonia in the left base. Heart: Normal heart size without pericardial effusion. Liver: Nodular surface contour of the liver in keeping with cirrhosis. Tips in the liver appears grossly patent noting that the contrast bolus somewhat limits evaluation for patency. Trace gallbladder wall thickening, no significant change, most likely related to chronic hepatic disease. No calcified stones are identified. Mild intrahepatic ductal dilation and/or periportal edema, new in comparison to the prior study. Gallbladder and bile ducts: See Liver finding. Pancreas: Normal. No ductal dilation. Spleen: Embolization material in the splenic hilum. The spleen is enlarged measuring 14 cm craniocaudad. Adrenal glands: Normal. No mass. Kidneys and ureters: Nonobstructing left renal calculus measures 4 mm. The kidneys and ureters are otherwise within normal limits. Stomach and bowel: The stomach is within normal limits noting varices at the fundus. No bowel obstruction. Mild to moderate stool in the colon. Appendix: No evidence of appendicitis. Intraperitoneal space: Moderate ascites. No pneumoperitoneum or drainable fluid collection. Vasculature: Upper abdominal varices. Lymph nodes: No enlarged lymph nodes. Urinary bladder: Unremarkable as visualized. Reproductive: Unremarkable as visualized. Bones/joints: Degenerative changes of the spine. Mild anterior wedge deformity at T12, age indeterminate. Vertebral body heights are otherwise maintained. Soft tissues: Within normal limits. IMPRESSION: 1. Mild anterior wedge deformity at T12, age indeterminate. No additional findings concerning for acute traumatic injury. 2. Cirrhosis with sequelae of portal hypertension including moderate ascites. New intrahepatic biliary ductal dilation and/or periportal edema, unknown etiology. Dictated and Authenticated by: Anne Hickey MD. Ordering:MARIANNE La MD
[2020-08-04 02:52] LABS: Troponin I < 0.05 ng/mL (<0.06)
--- NOTE | 2020-08-04 23:44 | DI.CT_ITS ---
EXAM: CT ABDOMEN PELVIS W CLINICAL HISTORY: vomiting, abdominal pain, altered TECHNIQUE: COMPARISON: CT ABD PELVIS WITH CONTRAST from 07/31/2017 FINDINGS: CT examination of the abdomen and pelvis was performed with bolus infusion of 100 cc of Omnipaque 350 . Images obtained through the lung bases show no specific abnormality of the right lung. There is an a guy of apparent consolidation or atelectasis in the left lung base which was not present on prior CT of July 2017. There is a left pleural effusion noted. There is marked diffuse abdominal ascites. The hepatic contour is nodular consistent with cirrhosis. Note is made of TI PS in place. Upper abdominal varices noted. There is splenomegaly, nonspecific . Pancreas is grossly unremarkable. No biliary dilatation. Gallbladder is distended but thin vargas d. The liver appears normal with no evidence of a focal mass. The adrenals are grossly unremarkable bilaterally as visualized. There is a nonobstructing left renal stone. No additional renal or ureteral calculi, no hydronephros is, no gross mass identified. There is no evidence of abdominal or pelvic adenopathy. Abdominal aorta is of normal diameter and no major vascular abnormality is seen. Appendix is normal. No evidence diverticulitis or bowel obstruction. No significant abdominal wall hernia seen. Impression: Findings of cirrhosis and abdominal ascites, chronic. T IPS in place. Findings raising the possibility of acute left basilar pneumonia. RADIATION DOSE DELIVERED: 1,475.14mGy.cm Total DLP 1,475.14mGy.cm Total DLP DATA REPOSITORY: All CT scans at this facility are submitted to the National Radiology Data Registry (NRDR) Dose Index Registry (DIR) with the [employer] ([employer]). RADIATION OPTIMIZATION: All CT scans at this facility use at least one of these dose optimization te chniques: automated exposure control; mA and/or kV adjustment per patient size (includes targeted exa ms where dose is matched to clinical indication); or iterative reconstruction.
--- NOTE | 2020-08-04 23:44 | DI.CT_ITS ---
EXAM: CT HEAD WO CLINICAL HISTORY: altered, hepatic failure TECHNIQUE: COMPARISON: CT HEAD WITHOUT CONTRAST from 04/08/2017 FINDINGS: Noncontrast cranial CT was performed. There are predominantly low attenuation subdural collections b ilaterally involving the frontal regions, these measure up to about 8 millimeters in thickness. Some cysts subtle areas of intermediate attenuation may be present although artifact makes this difficult to determine. Findings are most consistent with chronic subdural hygromas, subacute hemorrhage not excluded, no gross acute hemorrhage. No intraparenchymal hemorrhage in the brain. Ventricular system is normal in appearance. Orbital and temporal bone structures appear intact. Visualized mastoid air cells and paranasal sinus es appear clear. 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 Possibility of some component of fraga bacute hemorrhage is not entirely excluded, no acute bleed identified. RADIATION DOSE DELIVERED: 735.12mGy.cm Total DLP
--- NOTE | 2020-08-04 23:55 | DI.RAD_ITS ---
EXAM: XR CHEST 2V PA LATERAL CLINICAL HISTORY: crackles in bases TECHNIQUE: COMPARISON: CR LEFT SHOULDER COMPLETE from 10/14/2016 FINDINGS: Right lung is clear. Heart may be mildly enlarged. There is a left pleural effusion, there may be l eft lower lobe consolidation as noted on CT. Appropriate follow-up films requested. IMPRESSION: Left pleural effusion, patient has known ascites. Findings suspicious for left basilar pneumonia. RADIATION DOSE DELIVERED: Total DLP
== END 2020-08-04 04:10 | disposition short-term general hospital (02) ==
PROVIDERS: Emergency Provider Student in an Organized Health Care Education/Training Program; PCP Family Medicine
DX: K70.31 Alcoholic cirrhosis of liver with ascites (principal); I62.02 Nontraumatic subacute subdural hemorrhage; J18.9 Pneumonia, unspecified organism; R11.2 Nausea with vomiting, unspecified; G93.49 Other encephalopathy; R79.1 Abnormal coagulation profile; D68.4 Acquired coagulation factor deficiency
CPT/HCPCS: 36415; 80053; 82805; 83690; 87040; 93005; 96361; 96365; 96367; 96375; 99285; 70450; 71046; 74177; 80320; 80329; 82140; 82248; 83605; 84484; 85025; 85610; 85730; 93010; J2405; J2543

== ENCOUNTER 2020-08-12 00:57 | Inpatient (IN) | payer OTHER, SELFPAY ==
[2020-08-12] VITALS (36 sets, daily range): BP systolic 115–147; BP diastolic 61–85; PULSE 61–80; RESP 11–19; TEMP 36–37.3; O2SAT 95–100
--- NOTE | 2020-08-12 00:45 | RT.EKG_ITS ---
APPROVED REPORT Exam: Resting ECG Patient Location: E HR:73 bpm ECG Measurements Heart Rate 73 AXIS ME 144 P 81 QRSd 104 QRS -16 QT 417 T 60 QTc 460 Conclusion Sinus rhythm...normal P axis, V-rate 60- 99 Physician: Rate 73, sinus rhythm, intervals unremarkable, no significant ST elevation or depression, no STEMI. Mild artifact.
--- NOTE | 2020-08-12 01:00 | DI.CT_ITS ---
EXAM: CT HEAD WO CLINICAL HISTORY: headache, known subdural. TECHNIQUE: Imaging Protocol: Axial computed tomography images with coronal and sagittal reformatted images were created and reviewed COMPARISON: CT CT HEAD WO from 08/04/2020 FINDINGS: There are no skull fractures nor fluid in the visualized paranasal sinuses. Again noted are the previously described bilateral hypodense convexity collections consistent with hy gromas. There may be slight increase in size of the left hygroma. No acute blood evident therein. Mass-effect upon the cortical sulci again noted. No shift of midline structures at this time. IMPRESSION: Again noted there are the bilateral subdural hygromas. The left-side hygroma appears slightly larger than on the prior study. There is no shift of midline structures. No acute hemorrhage evident. RADIATION DOSE DELIVERED: 773.71mGy.cm Total DLP DATA REPOSITORY: All CT scans at this facility are submitted to the National Radiology Data Registry (NRDR) Dose Index Registry (DIR) with the [employer] ([employer]). RADIATION OPTIMIZATION: All CT scans at this facility use at least one of these dose optimization te chniques: automated exposure control; mA and/or kV adjustment per patient size (includes targeted exa ms where dose is matched to clinical indication); or iterative reconstruction.
--- NOTE | 2020-08-12 01:00 | DI.RAD_ITS ---
EXAM: XR CHEST 2V PA LATERAL CLINICAL HISTORY: right chest pain. TECHNIQUE: 2D digital imaging was performed. COMPARISON: Prior chest x-ray 08/04/2020 FINDINGS: Heart size is normal. The mediastinum is not widened. Mediastinal structures again noted to be shifted towards the left with decreased left hemithoracic vo lume again noted, unchanged. Loculated left pleural effusion again noted as well as some infiltrate in the left lung base. Overinflation of the right lung is again noted. No infiltrates on the right side. No pleural effusion on the right side. Embolization coil material is noted below the left hem idiaphragm. There is also mild wedge compression of L1 noted on the lateral view. IMPRESSION: Persistent loculated appear left pleural effusion, unchanged. Mild left lung base infiltrate. Decre ased left hemithoracic volume.. The right lung remains clear. DATA REPOSITORY: RADIATION DOSE DELIVERED:
--- NOTE | 2020-08-12 01:07 | W.ED.GENAD ---
Discharge Plan Disposition Patient Disposition: [facility] INPATIENT Condition: Stable Discharge Details Chief Complaint: Chest Pain Clinical Impression: Acute hepatic encephalopathy, Thrombocytopenia Primary Care Provider: Joaquin Soliz ED Provider: Abhinav Diallo Home Meds and New Rx's Prescriptions: No Action furosemide 40 mg tablet 40 mg PO DAILY RF: 0 spironolactone 50 mg tablet RF: 0 omeprazole 20 mg tablet,delayed release (DR/EC) PO RF: 0 Medical Decision Making 44-year-old male with past medical history of heterozygous alpha-1 antitrypsin deficiency, severe end-stage liver failure on transplant list, esophageal varices, previous TIPS procedure, who presents today for evaluation of right-sided chest pain and headache. I recently saw the patient on 08/04/2020, at that time CT scan showed chronic subdural hematoma, patient was notably altered, and had a urinary tract infection and pneumonia. He was transferred to [facility] where he was managed, did develop a transient upper GI bleed secondary to coagulopathy from hepatic failure, was given vitamin K. He was discharged on 08/06/2020 doing better. Patient states that since he has been home for the last week he has not felt well, for the last week he admits to right-sided chest pain worsening this evening, present with breathing. He denies any shortness of breath. He also admits to mild headache. He denies any new falls or trauma. He denies any vomiting or diarrhea. He denies any new abdominal pain. No other complaints at this time. No other modifying factors. Of note he was on Cipro at time of discharge from [facility] for urinary tract infection. He was not continued on lactulose after discharge from [facility]. Physical exam demonstrates a thin cachectic male, mildly jaundice, no abdominal tenderness to speak of, mild reproducible right chest wall tenderness. But the symptoms lasting for the past week, I doubt FL, however we will evaluate for this. PE unlikely as oftentimes the patient has an elevated INR secondary to his liver failure. Potential pneumonia is on the differential. In regards to his headache may be secondary to his chronic subdurals, we will get a repeat CT scan to evaluate for any change. Clinically he shows no signs of meningitis. He does have mild asterixis which is actually different compared to his last visit. Mildly confused but certainly not obtunded like he was on his last visit. We will check an ammonia level. His mental status does still demonstrate evidence of mild confusion and mild encephalopathy, however it is definitely notably better than the last time he was here. 4 AM Work-up has returned, hemoglobin is 9.1, upon review of records it appears that his hemoglobin was in the sixes during his last visit at [facility], and he was transfused then. Hemoglobin appears to be stable. Platelets lower than normal at 57, pending INR, PT and PTT as labs states that it will need to be reverified in the morning. No elevation in PCO2, electrolytes stable. Bilirubin 9.4, 10 to previous levels. Calcium is 7.6 but corrected calcium taking into account his hypoalbuminemia is 9.3. Ammonia is 47. Troponin normal, EKG unremarkable. Urinalysis shows no signs of infection. CT scan negative for changes in his chronic subdurals. Chest x-ray negative aside for mild left pleural effusion. Bedside ultrasound does show evidence of small effusion, but I would definitely not tap it at this stage. Lidoderm patches were placed on the patient, this does seem to mildly improve his pain. Chest pain seems notably unrelated to cardiac etiology. Continues to demonstrate mild confusion, and I would attribute this to mild hepatic encephalopathy. We will give lactulose here. In addition to this the patient has described to nursing that he and his are getting and he is extremely worried about where he will live, and how he will be cared for after this. Although I do not think this is why he is currently confused and having his symptoms, I do suspect that this is something that should be addressed by case management for additional help and resources. With evidence of hepatic encephalopathy, in conjunction with his overall clinical picture and social issues I do feel that admission at this time is indicated. did request specifically that in the last year was a life-threatening issue that she not be called this evening as she needs to work in the morning. We will respect this request. I did discuss the case with Dr. Hubbard, he agrees with the assessment and plan. I will place bridging orders. Patient will be admitted. I have extensively reviewed the treatment plan with the patient. I have addressed all patient concerns at this time. I have also discussed the plan with the admitting physician and they agree with the current assessment and plan and have agreed to assume responsibility for the patient. All parties demonstrate verbal understanding and agreement with our assessment and plan at this time. EKG 1: 05 Rate 73, sinus rhythm, intervals unremarkable, no significant ST elevation or depression, no STEMI. Mild artifact. FINDINGS: Brain: Stable low density bilateral superior subdural collections. No acute intracranial hemorrhage. No acute territorial infarct. Cerebral ventricles: No ventriculomegaly. Bones/joints: Unremarkable. No acute fracture. Paranasal sinuses: Visualized sinuses are unremarkable. No fluid levels. Mastoid air cells: Visualized mastoid air cells are well aerated. Soft tissues: Unremarkable. IMPRESSION: 1. No acute intracranial finding. 2. Stable bilateral low-density subdural collections. Thank you for allowing us to participate in the care of your patient. Dictated and Authenticated by: Chepe Terrazas MD 08/12/2020 1:53 AM Eastern Time ([place] & [place]) FINDINGS: Lungs: Unremarkable. No consolidation. Pleural space: Left pleural effusion/blunted costophrenic angle Heart/Mediastinum: Unremarkable. No cardiomegaly. Bones/joints: Unremarkable. IMPRESSION: No acute finding. Thank you for allowing us to participate in the care of your patient. Dictated and Authenticated by: Chepe Terrazas MD 08/12/2020 2:00 AM Eastern Time ([place] & [place]) HPI General Date/Time Provider Initiated Documentation: 08/12/20 01:01. HPI Narrative: 44-year-old male with past medical history of heterozygous alpha-1 antitrypsin deficiency, severe end-stage liver failure on transplant list, esophageal varices, previous TIPS procedure, who presents today for evaluation of right-sided chest pain and headache. I recently saw the patient on 08/04/2020, at that time CT scan showed chronic subdural hematoma, patient was notably altered, and had a urinary tract infection and pneumonia. He was transferred to [facility] where he was managed, did develop a transient upper GI bleed secondary to coagulopathy from hepatic failure, was given vitamin K. He was discharged on 08/06/2020 doing better. Patient states that since he has been home for the last week he has not felt well, for the last week he admits to right-sided chest pain worsening this evening, present with breathing. He denies any shortness of breath. He also admits to mild headache. He denies any new falls or trauma. He denies any vomiting or diarrhea. He denies any new abdominal pain. No other complaints at this time. No other modifying factors. Of note he was on Cipro at time of discharge from [facility] for urinary tract infection. 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 Exam Narrative Exam Narrative: 1.Const: Well-nourished, Well-developed, appearing stated age 2.Eyes: PERRL, no conjunctival injection, and symmetrical lids. 3.ENT: Atraumatic external nose and ears. Moist MM. Neck: Symmetric, trachea midline, No thyromegaly. Patient demonstrates good movement of cervical neck. There is no nuchal rigidity, no nuchal tenderness. Patient is able to flex the neck without any difficulty or significant pain. Negative Kernig's and Brudzinski sign. 4.CVS: +S1/S2, No murmurs or gallops. Peripheral pulses 2+ and equal in all extremities. Brisk capillary refill in all extremities. 5.RESP: Unlabored respiratory effort. Mild rhonchi in the right lung marcum. No wheezes. 6.GI: Soft, Nontender/Nondistended, No hepatosplenomegaly. No guarding or rebound. No acute tenderness to suggest spontaneous bacterial peritonitis. 7.MSK: Normocephalic/Atraumatic, Extremities w/o deformity or ttp No cyanosis or clubbing, Normal movement of all extremities. No midline cervical thoracic or lumbar spine tenderness. Mild right sided chest wall tenderness reproducible with palpation. No evidence of deformity. Mild 3 beat asterixis. 8.Skin: Warm, dry, multiple telangiectasias over his extremities and chest. Mild bruise to his left forearm, no other signs of significant bruise or trauma 9.Neuro: screening unit registered nurse II-XII grossly intact. Sensation grossly intact, no focal neurologic deficits. 10.Psych: (AAO) x3. Appropriate mood and affect Course Lab/Test Results Lab/Test Results: 08/12/20 01:04 Blood Blood Culture - Pending 08/12/20 01:04 Blood Blood Culture - Pending
[2020-08-12 01:38] LABS: BE (Venous) 4 mmol/L (-2-3); HCO3 (Venous) 28 mmol/L (23-28); O2 Sat (Venous) 80 %; TCO2 (Venous) 26 mmol/L (24-29); pCO2 (Venous) 42 mmHg (41-51); pH (Venous) 7.43 (7.31-7.41); pO2 (Venous) 46 mmHg
[2020-08-12 01:50] LABS: Ammonia 47 umol/L (11-32)
[2020-08-12] MEDS: Normal Saline 500 ML IV (01:53)
--- NOTE | 2020-08-12 01:53 | DI.VRAD_ITS ---
PROCEDURE INFORMATION: Exam: CT Head Without Contrast Exam date and time: 08/12/2020 1:23 AM Age: 44 years old Clinical indication: Pain; Headache not specified; Patient HX: Headache, known subdural, confusion TECHNIQUE: Imaging protocol: Computed tomography of the head without contrast. COMPARISON: CT HEAD WO 08/04/2020 12:45 AM FINDINGS: Brain: Stable low density bilateral superior subdural collections. No acute intracranial hemorrhage. No acute territorial infarct. Cerebral ventricles: No ventriculomegaly. Bones/joints: Unremarkable. No acute fracture. Paranasal sinuses: Visualized sinuses are unremarkable. No fluid levels. Mastoid air cells: Visualized mastoid air cells are well aerated. Soft tissues: Unremarkable. IMPRESSION: 1. No acute intracranial finding. 2. Stable bilateral low-density subdural collections. Dictated and Authenticated by: Chepe Terrazas MD. Ordering:MARIANNE La MD
[2020-08-12 01:55] LABS: ALT 23 U/L (16-63); AST 53 U/L (15-37); Albumin 1.9 g/dL (3.4-5.0); Alkaline Phosphatase 187 U/L (46-116); Anion Gap 3.9 mmol/L (3-11); BUN 10 mg/dL (7-18); Bilirubin, Total 9.4 mg/dL (0.2-1.0); CO2 27.1 mmol/L (21.0-32.0); CREATININE 0.96 mg/dL (0.70-1.30); Calcium 7.6 mg/dL (8.5-10.1); Chloride 109 mmol/L (98-107); Glucose 138 mg/dL (74-106); Potassium 3.8 mmol/L (3.5-5.1); Sodium 140 mmol/L (136-145); Total Protein 5.6 g/dL (6.4-8.2); Troponin I < 0.05 ng/mL (<0.06)
--- NOTE | 2020-08-12 02:00 | DI.VRAD_ITS ---
PROCEDURE INFORMATION: Exam: XR Chest, 2 Views Exam date and time: 08/12/2020 1:48 AM Age: 44 years old Clinical indication: Left-sided chest pain; Patient HX: Chest pain, told doctor R sided and told me left sided chest pain TECHNIQUE: Imaging protocol: XR of the chest Views: 2 views. COMPARISON: CR XR CHEST 2V PA LATERAL 08/04/2020 12:58 AM FINDINGS: Lungs: Unremarkable. No consolidation. Pleural space: Left pleural effusion/blunted costophrenic angle Heart/Mediastinum: Unremarkable. No cardiomegaly. Bones/joints: Unremarkable. IMPRESSION: No acute finding. Dictated and Authenticated by: Chepe Terrazas MD. Ordering:MARIANNE La MD
[2020-08-12 02:03] LABS: Abs Immature Grans 0.03 10^3/uL (0.0-0.06); Absolute Basophil Count 0.07 10^3/uL (0.0-0.2); Absolute Eosinophil Count 0.15 10^3/uL (0.0-0.7); Absolute Lymphocyte Count 1.08 10^3/uL (1.2-3.4); Absolute Monocyte Count 0.69 10^3/uL (0.1-0.8); Absolute Neutrophil Count 5.28 10^3/uL (1.2-6.7); Eosinophils % 2.1; HCT 27.3 % (40.0-50.0); HGB 9.1 g/dL (13.5-17.5); Immature Grans % 0.4; Lymphocytes % 14.8; MCH 37.9 pg (27.0-33.0); MCHC 33.3 % (32.0-36.0); MCV 113.8 fL (80-95); MPV 10.7 fL (8.0-11.0); Monocytes % 9.5; Neutrophils % 72.2; Nucleated RBC 0 %; Platelet Count 57 10^3/uL (130-400); RDW 19.2 % (11.8-14.1)
[2020-08-12 02:44] LABS: Diff Comment Agrees w/ Instrument
[2020-08-12 02:45] LABS: Burr Cells (echinocyte) 2+; Macrocytosis 3+
[2020-08-12] MEDS: Lidocaine 5% Patch 2 PATCH TP (02:59)
[2020-08-12 03:15] LABS: Bilirubin Moderate (Negative); Blood Large (Negative); Clarity Cloudy (Clear); Glucose Negative (Negative); Ketones Negative (Negative); Leukocyte Esterase Negative (Negative); Nitrite Negative (Negative); Specific Gravity 1.025 (1.005-1.025); Urobilinogen >=8.0 EU/dL (Up TO 0.2)
[2020-08-12 03:21] LABS: Bacteria Negative HPF (Negative); Crystals Negative HPF (Negative); Epithelial Cells Rare HPF (Negative); Mucus Moderate (Negative); Other Cells Negative (Negative); RBC >50 HPF (0-2)
[2020-08-12 03:22] LABS: C & S Indicated? Yes; Casts Negative LPF (Negative)
[2020-08-12] MEDS: Lactulose 20 GM/30 ML CUP PO ×3 (04:10→20:20)
[2020-08-12 04:42] LABS: Troponin I < 0.05 ng/mL (<0.06)
--- NOTE | 2020-08-12 05:42 | W.PM.HP.N ---
Date of service: 08/12/20 Time of Service: 05:42 Assessment and Plan Assessment and plan (1) Subdural hematoma: Status: Acute Assessment and plan: Chronic; unchanged. Mild GONZALES. (2) Acute hepatic encephalopathy: Status: Acute Assessment and plan: Ammonia level of 47. Previous TIPS procedure but not on chronic lactulose therapy. Given 20mg lactulose in ED and will cont with 20mg BID to achieve 2-3 loose stools daily and watch for improvement in confusional state. (3) Thrombocytopenia: Status: Chronic Assessment and plan: Chronic, secondary to hapatic cirrhosis/failure. No active bleeding. Monitor (4) Alcoholic cirrhosis of liver with ascites: Status: Chronic Assessment and plan: Child Hall Score of 12. On transplant list. Continue meds per hepatology at [facility]; spironolactone, lasix and omeprazole. (5) Discharge planning issues: Status: Acute Assessment and plan: Patient endorses that his is seeking a divorce. He is concerned about what is living situation will be post-divorce and how he will receive care that she assists in providing. Patient Observer to assist. History of Present Illness History of Present Illness Chief Complaint: Chest pain and headache. Narrative: This is a 44 yo male with a PMH of severe end-stage liver failure on transplant list, heterozygous alpha-1 antitrypsin deficiency and former alcohol abuse, esophageal varices, previous TIPS procedure. He presented to the ED with c/o R sided chest pain and GONZALES. He was noted to have chronic subdural hematomas on CT scan when in the ED on 08/04/2020; transferred to [facility]. He also had a UTI and PNA at that time. He developed an upper GI bleeed during that hospitalization; d/t coagulopathy from his liver failure. Discharged from [facility] on 08/06/2020 on ciprofloxacin. He endorses that since that discharge he has had the R sided chest discomfort that worsens with deep breaths. No SOA. No F/C/cough. He describes the GONZALES as mild. He denies any falls/trauma. No palpitations. No melena/hematochezia/hemetemesis. He has had no emesis/diarrhea or abdominal pain beyond his baseline. He was given lactulose when in [facility] but not discharged on lactulose. CT head showed no change in the chronic subdural hematomas. Hgb 9.1; in the 6's when at [facility] where he received a transfusion of RBCs. Bilirubin 9.4, Calcium 7.6; normal when corrected for low albumin. Ammonia 47. Troponin normal. EKG w/o significant findings. CXR with mild left pleural effusion. UA w/o evidence of infectious process. 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 Meds Home Medications and Allergies Home Medications Medication Instructions Recorded Confirmed Type furosemide 40 mg PO DAILY 07/03/20 08/12/20 History omeprazole 20 mg PO DAILY 08/04/20 08/12/20 History spironolactone 50 mg PO DAILY 08/04/20 08/12/20 History Allergies Allergy/AdvReac Type Severity Reaction Status Date / Time No Known Allergies Allergy Unverified 08/04/20 00:15 Exam Narrative Exam Narrative: Patient asleep; arouses to verbal commands for short periods then falls asleep. Const General: cooperative, no acute distress and lethargic Nutritional Appearance: thin Orientation: confused HENMT Head: normocephalic and atraumatic Eyes Sclera: scleral abnormality bilaterally (icterus) Pupils: PERRL Neck Neck: full ROM and nontender Chest Chest: no tenderness Resp Effort & Inspection: normal respiratory effort Auscultation: rhonchi (soft) Cardio Jugular venous pressure: no JVD Rate: regular rate Rhythm: regular rhythm Heart Sounds: S1 normal, S2 normal and murmur systolic GI Palpation: soft and tender (diffuse w/o guarding/rebound) Skin Other: Telangiectasias of chest/abd and extremities. Neuro General: moves all extremities and no focal motor deficits Speech: speech normal Extrem General: no pedal edema and no calf tenderness Results Labs Result diagrams: 08/12/20 01:05 08/12/20 01:05 Labs: Laboratory Results - last 24 hr 08/12/20 08/12/20 08/12/20 01:05 01:05 01:05 WBC 7.30 RBC 2.40 L Hgb 9.1 L Hct 27.3 L MCV 113.8 H MCH 37.9 H MCHC 33.3 RDW 19.2 H Plt Count 57 L MPV 10.7 Immature Gran % 0.4 Neutrophils % 72.2 Lymphocytes % 14.8 Monocytes % 9.5 Eosinophils % 2.1 Basophils % 1.0 Nucleated RBC % 0 Absolute Neutrophils 5.28 Absolute Lymphocytes 1.08 L Absolute Monocytes 0.69 Absolute Eosinophils 0.15 Absolute Basophils 0.07 RBC Morphology See below Macrocytosis 3+ Kenny Cells/Echinocytes 2+ VBG pH VBG pCO2 VBG pO2 VBG HCO3 VBG Total CO2 VBG O2 Saturation VBG Base Excess Sodium 140 Potassium 3.8 Chloride 109 H Carbon Dioxide 27.1 Anion Gap 3.9 BUN 10 Creatinine 0.96 Estimated GFR/1.73 m2 >= 60.00 Glucose 138 H Calcium 7.6 L Total Bilirubin 9.4 H AST 53 H ALT 23 Alkaline Phosphatase 187 H Ammonia 47 H Troponin I < 0.05 Total Protein 5.6 L Albumin 1.9 L Urine Color Urine Clarity Urine pH Ur Specific [place] Urine Protein Urine Ketones Urine Blood Urine Nitrite Urine Bilirubin Urine Urobilinogen Ur Leukocyte Esterase Urine RBC Urine WBC Ur Epithelial Cells Urine Crystals Urine Bacteria Urine Casts Urine Mucus Urine Other Ur Culture Indicated? Urine Glucose 08/12/20 08/12/20 08/12/20 01:05 02:45 04:10 WBC RBC Hgb Hct MCV MCH MCHC RDW Plt Count MPV Immature Gran % Neutrophils % Lymphocytes % Monocytes % Eosinophils % Basophils % Nucleated RBC % Absolute Neutrophils Absolute Lymphocytes Absolute Monocytes Absolute Eosinophils Absolute Basophils RBC Morphology Macrocytosis [place] Cells/Echinocytes VBG pH 7.43 H VBG pCO2 42 VBG pO2 46 VBG HCO3 28 VBG Total CO2 26 VBG O2 Saturation 80 VBG Base Excess 4 H Sodium Potassium Chloride Carbon Dioxide Anion Gap BUN Creatinine Estimated GFR/1.73 m2 Glucose Calcium Total Bilirubin AST ALT Alkaline Phosphatase Ammonia Troponin I < 0.05 Total Protein Albumin Urine Color Roberts Urine Clarity Cloudy Urine pH 7.0 Ur Specific [place] 1.025 Urine Protein Trace H Urine Ketones Negative Urine Blood Large H Urine Nitrite Negative Urine Bilirubin Moderate H Urine Urobilinogen >=8.0 Ur Leukocyte Esterase Negative Urine RBC >50 H Urine WBC 5-10 Ur Epithelial Cells Rare Urine Crystals Negative Urine Bacteria Negative Urine Casts Negative Urine Mucus Moderate Urine Other Negative Ur Culture Indicated? Yes Urine Glucose Negative Last Vital Signs Temp 36.8 C 08/12/20 04:56 Pulse 67 08/12/20 04:56 Resp 16 08/12/20 04:56 BP 126/74 08/12/20 04:56 Pulse Ox 97 08/12/20 04:56 COVID-19 Screening Have you, or household traveled for leisure in last 14 days?: No Had IN PERSON contact w/suspected or confirmed C-19 person: No
[2020-08-12 06:59] LABS: BE (Venous) 1 mmol/L (-2-3); HCO3 (Venous) 25 mmol/L (23-28); O2 Sat (Venous) 98 %; TCO2 (Venous) 24 mmol/L (24-29); pCO2 (Venous) 37 mmHg (41-51); pH (Venous) 7.44 (7.31-7.41); pO2 (Venous) 83 mmHg
[2020-08-12] MEDS: Omeprazole 20 MG CAPCR PO (08:02)
[2020-08-12] MEDS: Spironolactone 50 MG TAB PO (08:02)
[2020-08-12] MEDS: Furosemide 40 MG TAB PO (08:02)
--- NOTE | 2020-08-12 08:38 | PDOC.CMIN ---
- If Service Date Differs Date of service: 08/12/20 Time of Service: 08:38 Care Management Initial Assess REASON FOR HOSPITALIZATION:: subdural hematoma PAST MEDICAL HISTORY/PAST SURGICAL HISTORY:: PFSH. Medical History . Acute blood loss anemia. Acute upper GI bleed. Alcoholic cirrhosis of liver without ascites. 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 Surgical History . S/P TIPS (transjugular intrahepatic portosystemic shunt) PREVIOUS FUNCTIONAL STATUS/SOCIAL/FAMILY SUPPORTS:: Misa lives with his Lissa and his son in [place]. He states that they are but that she is allowing him to live there for the time being. They have 2 children, ages 11 and 21. Misa is not employed; he is disabled. He is able to perform ADLs but does need assistance. CURRENT FUNCTIONAL STATUS:: Misa was sitting up in bed when CM met with him. He was pleasant and agreeable to conversation. Misa shared that he had been on a transplant list for a liver transplant in [place] but because he was uncomfortable meeting with them in person (Covid), he is no longer on the list. He shared that he believes he can get back on the list easily. Albino also shared that he and his are in the process of . He reported that he needs to find a new place to live as he does not to continue to burden his . He described himself as fairly independent with self care but he does not drive. He believes that home health RN, PT and OT would be helpful. A PT eval has been ordered. ADVANCE DIRECTIVES:: None on file Has patient been provided with info about the portal/API?: Yes Did the patient sign up for the portal?: No CODE STATUS:: Full Code INSURANCE COVERAGE / FINANCIAL ISSUES:: GISC/[employer] CURRENT HOME/COMMUNITY SERVICES/EQUIPMENT:: none currently PRIMARY CARE PHYSICIAN:: Joaquin Soliz POTENTIAL DISCHARGE NEEDS:: Follow up with PCP and plan of care PATIENT/FAMILY EDUCATION NEEDS:: Discharge plan, limitations, follow up plan, [facility] Me [employer] TRANSPORTATION:: via private vehicle with or friend PLAN:: Albino will likely discharge home with new home health services for RN,PT and OT. He will follow up with his PCP and possibly with his transplant team in [place]. CM will continue to support misa and his discharge planning needs.
--- NOTE | 2020-08-12 12:45 | IN_ITS ---
Date of service: 08/12/20 Time of Service: 12:45 PT Notes Visit Reasons: HEPATIC ENCEPHALOPATHY Physical Therapy Inpatient Initial Evaluation Date: 08/12/2020 Referring Doctor: Jenae Ugalde NP PT Orders: PT CONSULT: Eval/treat Precautions: Fall. Standard. Activity as tolerated. Patient Profile/Admitting Diagnosis: José Manuel is a 44-year-old male with past medical history significant for heterozygous alpha-antitrypsin deficiency, and severe end-stage liver failure who presented to the ED on08/12/2020 with chief complaints of R-sided chest pain and headache. He is diagnosed with subdural hematoma, acute hepatic encephaolopathy, thrombocytopenia, and alcoholic encephalopathy. 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 He states that he and his are in the process of divorce and he does not know how much help he can get once he is on his own. He states that he is looking for a place he can go to that can provide his needs. In the meantime, the ex- has agreed for him to go back while he is looking for another place to stay. Equipment Owned/DME: None previously owned Subjective: Agreeable to PT consult. Welcomes HH PT so that he can continue to get some more strength and balance skilling. States that at home he only performs short distance ambulation as he is aware of his medical condition, what he can do and cannot do. Indicated being tired at the start. Naoma stable using the FWW. Objective: General Observation: Supine in bed. Appeared withdrawn and tired. SOB with short distance ambulation. Mental Status: Alert and oriented x 4 Pain: 4/10 pain in abdominal area ROM: Right Upper Extremity: Shoulder Flexion WFL. Shoulder abduction WFL. Elbow flexion WFL. Wrist flexion WFL. Opening and closing of hand WFL. Left Upper Extremity: Shoulder Flexion WFL. Shoulder abduction WFL. Elbow flexion WFL. Wrist flexion WFL. Opening and closing of hand WFL. Right Lower Extremity: Hip flexion WFL. Hip abduction WFL. Knee flexion WFL. Ankle dorsiflexion WFL. Ankle plantarflexion WFL. Left Lower Extremity: Hip flexion WFL. Hip abduction WFL. Knee flexion WFL. Ankle dorsiflexion WFL. Ankle plantarflexion WFL. Strength: Right Upper Extremity: Shoulder flexors 4-/5. Shoulder abductors 4-/5. Elbow flexors 4/5. Elbow extensors 4-/5. Polarity Tester strong. Left Upper Extremity: Shoulder flexors 4-/5. Shoulder abductors 4-/5. Elbow flexors 4/5. Elbow extensors 4-/5. Polarity Tester strong. Right Lower Extremity: Hip flexors 3+/5. Hip abductors 4-/5. Knee flexors 4/5. Knee extensors 4-/5. Ankle dorsiflexors 4-/5. Ankle plantarflexors 4-/5. Left Lower Extremity: Hip flexors 3+/5. Hip abductors 4-/5. Knee flexors 4/5. Knee extensors 4-/5. Ankle dorsiflexors 4-/5. Ankle plantarflexors 4-/5. Sensation: Intact as to pain and pressure on bilateral lower extremities. Bed Mobility/Transfers: Rolling supervison Supine to sit supervision Sit to supine supervision Sit to stand CGA Stand to sit CGA Bed to chair CGA Gait: Guided patient through 60 feet of level surface ambulation using the FWW and CGA with report of 4/10 abdominal pain with exertion and with report of B feet being weak. gait pattern unremarkable except for reduced andrew. Balance: Static Sitting: Normal Dynamic Sitting: Normal Static Standing: Fair Dynamic Standing: Fair Special Tests: Mobility Limitations Standardized Measure [facility] AM-PAC 6 clicks Basic Mobility Inpatient Short Form: Raw Score: 21 CMS Score: 29% deficit Informed Consent/Education: Patient instructed in purpose of PT consult and plan of care. Assessment: José Manuel requires the use of a front-wheeled walker for all mobility ADL performance to reduce fall risk at home. He will benefit from PT services in order to address ongoing impairments listed above and maximize his ability to stay at home. He will need assistance with meal preparation, medical transportation, grocery shopping, and product development specialist as his soon-to-be ex will not be able to help him 100% of the time once he returns home. Patient presents with clinical signs and symptoms consistent with current/admitting diagnoses that have resulted to mobility limitations, gait i nstability, generalized weakness, and impairment of motor control as demonstrated by the following impairment level findings: 1. Decreased strength to B LE major muscle groups 2. Impaired standing balance 3. Impaired activity tolerance, easy fatigability (chronic problem) 4. Abdominal pain Impairments are contributing to the following functional limitations: 1. Inability to safely ambulate without assistive device and physical assistance 2. Increase completion time for mobility ADL performance 3. Increased fall risk 4. Inability to negotiate steps alone safely Patient is assessed as a 89297 moderate complexity based on the following: History: 44-year-old male with impairment level findings, functional limitations, and past medical history as indicated above Examination: Demonstrable impairment in strength, balance, and mobility level with underlying impairments and functional limitations as documented above Presentation:Evolving Decision Makin moderate complexity Goals: Goals X1 week 1. Supine-Sit independent 2. Sit-Supine independent 3. Sit-Stand independent 4. Stand-Sit independent 5. Bed-Chair independent 6. Chair-Bed independent 7. Independent gait on level surface with use of FWW for at least 100 feet without report of pain nor dyspnea 8. Independent stair negotiation while holding onto bilateral rails for at least 5 steps without report of pain nor dyspnea 9. Good static and dynamic standing balance/tolerance Plan of Care/Treatment Plan: 1-2x/day, 7 days/week x 1 week. Plan of care has been reviewed with the FIRE MANAGEMENT TECHNICIAN providing the service under Physical Therapy direction. Initiate Physical Therapy intervention for strengthening, bed mobility, transfers, gait, stairs, balance training, use of assistive device. DISCHARGE RECOMMENDATIONS: Patient will benefit from home health PT services in order to progress mobility level using least restrictive assistive ambulatory device, assess home safety, identify additional equipment needs, and establish a functional maintenance program that will increase ability of patient to remain at home. TREATMENT CODE/TIME: 30897 x 29 minutes beginning at 12:45 PM. Thank you for the opportunity to participate in the care of this patient. Norma Weaver PT, DPT, CLT [facility] [place], [place]
--- NOTE | 2020-08-12 14:18 | W.PM.PROGNOT ---
Date of Service Date of service: 08/12/20 Time of Service: 14:18 Subjective Subjective Interval history since last seen: Spoke with Patient he would like to go home. He is more clear, he has not had any BM. he did work with PT. Explained to patient that I would like to keep him overnight, once he has a BM, works with PT he can go home. Likely in the am. He is agreeable. He is on a lowfat diet but asking for ice cream, he can have ice cream. He denies SOB, N/V/D, Pain to chest has improved. Objective Last Vital Signs Temp 36 C L 08/12/20 07:15 Pulse 75 08/12/20 07:15 Resp 19 08/12/20 07:15 BP 131/71 08/12/20 07:15 Pulse Ox 95 08/12/20 07:15 Laboratory Results - last 24 hr 08/12/20 08/12/20 08/12/20 01:05 01:05 01:05 WBC 7.30 RBC 2.40 L Hgb 9.1 L Hct 27.3 L MCV 113.8 H MCH 37.9 H MCHC 33.3 RDW 19.2 H Plt Count 57 L MPV 10.7 Immature Gran % 0.4 Neutrophils % 72.2 Lymphocytes % 14.8 Monocytes % 9.5 Eosinophils % 2.1 Basophils % 1.0 Nucleated RBC % 0 Absolute Neutrophils 5.28 Absolute Lymphocytes 1.08 L Absolute Monocytes 0.69 Absolute Eosinophils 0.15 Absolute Basophils 0.07 RBC Morphology See below Macrocytosis 3+ Kenny Cells/Echinocytes 2+ PT INR APTT VBG pH VBG pCO2 VBG pO2 VBG HCO3 VBG Total CO2 VBG O2 Saturation VBG Base Excess Sodium 140 Potassium 3.8 Chloride 109 H Carbon Dioxide 27.1 Anion Gap 3.9 BUN 10 Creatinine 0.96 Estimated GFR/1.73 m2 >= 60.00 Glucose 138 H Calcium 7.6 L Total Bilirubin 9.4 H AST 53 H ALT 23 Alkaline Phosphatase 187 H Ammonia 47 H Troponin I < 0.05 Total Protein 5.6 L Albumin 1.9 L Urine Color Urine Clarity Urine pH Ur Specific [place] Urine Protein Urine Ketones Urine Blood Urine Nitrite Urine Bilirubin Urine Urobilinogen Ur Leukocyte Esterase Urine RBC Urine WBC Ur Epithelial Cells Urine Crystals Urine Bacteria Urine Casts Urine Mucus Urine Other Ur Culture Indicated? Urine Glucose 08/12/20 08/12/20 08/12/20 01:05 01:05 02:45 WBC RBC Hgb Hct MCV MCH MCHC RDW Plt Count MPV Immature Gran % Neutrophils % Lymphocytes % Monocytes % Eosinophils % Basophils % Nucleated RBC % Absolute Neutrophils Absolute Lymphocytes Absolute Monocytes Absolute Eosinophils Absolute Basophils RBC Morphology Macrocytosis [place] Cells/Echinocytes PT INR APTT VBG pH 7.43 H VBG pCO2 42 VBG pO2 46 VBG HCO3 28 VBG Total CO2 26 VBG O2 Saturation 80 VBG Base Excess 4 H Sodium Potassium Chloride Carbon Dioxide Anion Gap BUN Creatinine Estimated GFR/1.73 m2 Glucose Calcium Total Bilirubin AST ALT Alkaline Phosphatase Ammonia Troponin I Total Protein Albumin Urine Color [place] Urine Clarity Cloudy Urine pH 7.0 Ur Specific [place] 1.025 Urine Protein Trace H Urine Ketones Negative Urine Blood Large H Urine Nitrite Negative Urine Bilirubin Moderate H Urine Urobilinogen >=8.0 Ur Leukocyte Esterase Negative Urine RBC >50 H Urine WBC 5-10 Ur Epithelial Cells Rare Urine Crystals Negative Urine Bacteria Negative Urine Casts Negative Urine Mucus Moderate Urine Other Negative Ur Culture Indicated? Yes Urine Glucose Negative 08/12/20 08/12/20 04:10 06:40 WBC RBC Hgb Hct MCV MCH MCHC RDW Plt Count MPV Immature Gran % Neutrophils % Lymphocytes % Monocytes % Eosinophils % Basophils % Nucleated RBC % Absolute Neutrophils Absolute Lymphocytes Absolute Monocytes Absolute Eosinophils Absolute Basophils RBC Morphology Macrocytosis [place] Cells/Echinocytes PT INR APTT VBG pH 7.44 H VBG pCO2 37 L VBG pO2 83 VBG HCO3 25 VBG Total CO2 24 VBG O2 Saturation 98 VBG Base Excess 1 Sodium Potassium Chloride Carbon Dioxide Anion Gap BUN Creatinine Estimated GFR/1.73 m2 Glucose Calcium Total Bilirubin AST ALT Alkaline Phosphatase Ammonia Troponin I < 0.05 Total Protein Albumin Urine Color Urine Clarity Urine pH Ur Specific [place] Urine Protein Urine Ketones Urine Blood Urine Nitrite Urine Bilirubin Urine Urobilinogen Ur Leukocyte Esterase Urine RBC Urine WBC Ur Epithelial Cells Urine Crystals Urine Bacteria Urine Casts Urine Mucus Urine Other Ur Culture Indicated? Urine Glucose
--- NOTE | 2020-08-12 14:26 | PHA.REVIEW ---
Pharmacy Admission Review - Admission Clinical Review (Last Reviewed 08/12/20 @ 05:53 by Bebeto Hubbard MD) Discharge planning issues (Acute) Subdural hematoma (Acute) Acute hepatic encephalopathy (Acute) No Known Allergies Allergy (Unverified 08/04/20 00:15) Height 6 ft 2 in Weight 78.6 kg - Renal Dosing Renal Dosing: BUN 10 mg/dL (7-18) 08/12/20 01:05 Creatinine 0.96 mg/dL (0.70-1.30) 08/12/20 01:05 Medications needing adjustments: Reviewed (Crcl ~108 mL/min current meds okay.) - Anticoagulation Anticoagulation: Hgb 9.1 g/dL (13.5-17.5) L 08/12/20 01:05 Hct 27.3 % (40.0-50.0) L 08/12/20 01:05 Plt Count 57 10^3/uL (130-400) L 08/12/20 01:05 INR (0.9-1.1) 08/12/20 01:05 Creatinine 0.96 mg/dL (0.70-1.30) 08/12/20 01:05 DVT Prohphylaxis: Reviewed (none ordered) - Opiate Usage Evaluate Pain Scale/Pains Meds: N/A - Relevant Labs Sodium 140 mmol/L (136-145) 08/12/20 01:05 Potassium 3.8 mmol/L (3.5-5.1) 08/12/20 01:05 Chloride 109 mmol/L (98-107) H 08/12/20 01:05 Electrolytes, C-Reactive P, ESR: Reviewed - DM Control DM Control: Glucose 138 mg/dL (74-106) H 08/12/20 01:05 Insulin Dosing: N/A (BG elevated some, no A1c on file, no DM noted pt's medical history) - Heart Failure/OR Heart Failure/OR: Troponin I < 0.05 ng/mL (<0.06) 08/12/20 04:10 EF%, YARON's, B-Blockers, Diuretics: Reviewed - BP Control BP Control: Blood Pressure 131/71 Blood Pressure 126/74 Blood Pressure 133/75 Blood Pressure 136/75 Blood Pressure 115/63 Blood Pressure 123/85 Blood Pressure 115/61 Blood Pressure 121/71 Blood Pressure 140/75 Blood Pressure 137/75 If elevated: N/A - Qtc Review If Elevated: N/A (QTc 460 on admission) - IV to PO Switch IV Medications: Reviewed - Home Meds Home Med List reviewed: Reviewed Relevent Home Meds Not ordered & why?: All home meds are ordered. - Current meds Current Medication Order Review: Intervened (Adjusted omeprazole timing based on social media marketing analyst time policy.) - Comments Comments/Follow Ups: Watch VS, plts, labs and for med changes.
[2020-08-12 19:56] LABS: COVID-19 RT-PCR UVMMC Result Negative (Negative)
[2020-08-13 03:53] VITALS: BP 125/69; PULSE 72; RESP 18; TEMP 36.7; O2SAT 96
[2020-08-13 06:47] LABS: BE (Venous) 1 mmol/L (-2-3); HCO3 (Venous) 26 mmol/L (23-28); O2 Sat (Venous) 88 %; TCO2 (Venous) 24 mmol/L (24-29); pCO2 (Venous) 38 mmHg (41-51); pH (Venous) 7.43 (7.31-7.41); pO2 (Venous) 54 mmHg
[2020-08-13 07:01] LABS: Abs Immature Grans 0.04 10^3/uL (0.0-0.06); Absolute Basophil Count 0.06 10^3/uL (0.0-0.2); Absolute Lymphocyte Count 1.14 10^3/uL (1.2-3.4); Absolute Monocyte Count 0.58 10^3/uL (0.1-0.8); Absolute Neutrophil Count 3.52 10^3/uL (1.2-6.7); Basophils % 1.1; Eosinophils % 3.6; HCT 25.9 % (40.0-50.0); HGB 8.5 g/dL (13.5-17.5); Immature Grans % 0.7; Lymphocytes % 20.6; MCH 37.8 pg (27.0-33.0); MCHC 32.8 % (32.0-36.0); MCV 115.1 fL (80-95); MPV 10.8 fL (8.0-11.0); Monocytes % 10.5; Neutrophils % 63.5; Nucleated RBC 0 %; RBC 2.25 10^6/uL (4.36-5.78); RDW 18.4 % (11.8-14.1); RDW-SD 78.1 fL; WBC 5.54 10^3/uL (4.4-10.8)
[2020-08-13 07:22] LABS: ALT 20 U/L (16-63); AST 45 U/L (15-37); Albumin 1.5 g/dL (3.4-5.0); Alkaline Phosphatase 160 U/L (46-116); BUN 8 mg/dL (7-18); Bilirubin, Total 7.6 mg/dL (0.2-1.0); CREATININE 0.85 mg/dL (0.70-1.30); Calcium 7.6 mg/dL (8.5-10.1); Chloride 110 mmol/L (98-107); Glucose 101 mg/dL (74-106); Potassium 4.3 mmol/L (3.5-5.1); Sodium 138 mmol/L (136-145); Total Protein 4.9 g/dL (6.4-8.2)
[2020-08-13 07:29] LABS: Platelet Count 57 10^3/uL (130-400)
[2020-08-13 07:30] LABS: Acanthocytes 2+; Anisocytosis 1+; Diff Comment RBC Morph Reviewed; Macrocytosis 3+
[2020-08-13 07:31] LABS: Poikilocytes 2+
[2020-08-13 07:35] VITALS: BP 128/69; PULSE 75; RESP 18; TEMP 36.9; O2SAT 96
[2020-08-13] MEDS: Furosemide 40 MG TAB PO (08:25)
[2020-08-13] MEDS: Spironolactone 50 MG TAB PO (08:25)
[2020-08-13] MEDS: Lactulose 20 GM/30 ML CUP PO (08:25)
[2020-08-13] MEDS: Omeprazole 20 MG CAPCR PO (08:25)
--- NOTE | 2020-08-13 08:46 | W.PM.DS.N ---
Date of service: 08/13/20 Time of Service: 08:46 DS: Diagnosis Discharge Diagnosis (1) Acute hepatic encephalopathy: Start date: 08/13/20 Start time: 08:48 Status: Resolved Asessment and Plan: Patient clear AAOx 3, he has had multiple days of lactulose with loose stool. Will continue at home 20 mg BID with goal of 2-3 loose stools He feels ready to be discharged home Follow up with PCP in 1 week (2) Thrombocytopenia: Start date: 08/13/20 Start time: 09:06 Status: Chronic Asessment and Plan: This is baseline, continue to monitor as an outpatient (3) Alcoholic cirrhosis of liver with ascites: Start date: 08/13/20 Start time: 09:08 Status: Chronic Asessment and Plan: On transplant list continue spironolactone, lasix and omeprazole, followed by [facility] hepatology (4) Subdural hematoma: Start date: 08/13/20 Start time: 08:46 Status: Chronic Asessment and Plan: He was noted to have chronic subdural hematomas on CT scan when in the ED on 08/04/2020; transferred to [facility]. This admission they are unchanged, no GONZALES. above case discussed with Dr. George who is in agreement Discharge Plan Disposition Patient Disposition: HOME W/HOME HEALTH SERVICE Condition: Stable Discharge Details Reason For Visit: HEPATIC ENCEPHALOPATHY Admit Date/Time: 08/12/20 03:44 Admit Provider: Bebeto Hubbard Attending Provider: Bebeto Hubbard Primary Care Provider: Joaquin Soliz [facility] Hospital Course: This is a 44 yo male with a PMH of severe end-stage liver failure on transplant list, heterozygous alpha-1 antitrypsin deficiency and former alcohol abuse, esophageal varices, previous TIPS procedure. He presented to the ED with c/o R sided chest pain and GONZALES. He was noted to have chronic subdural hematomas on CT scan when in the ED on 08/04/2020; transferred to [facility]. He also had a UTI and PNA at that time. He developed an upper GI bleeed during that hospitalization; d/t coagulopathy from his liver failure. Discharged from [facility] on 08/06/2020 on ciprofloxacin. Snce that discharge he has had R sided chest discomfort that worsens with deep breaths. No SOA. No F/C/cough. He describes the GONZALES as mild. He denies any falls/trauma. No palpitations. No melena/hematochezia/hemetemesis. He has had no emesis/diarrhea or abdominal pain beyond his baseline. He was given lactulose when in [facility] but not discharged on lactulose. CT head showed no change in the chronic subdural hematomas. Hgb 9.1; in the 6's when at [facility] where he received a transfusion of RBCs. Bilirubin 9.4, Calcium 7.6; normal when corrected for low albumin. Ammonia 47. Troponin normal. EKG w/o significant findings. CXR with mild left pleural effusion. UA w/o evidence of infectious process. He was admitted to / for further management. Over course of treatment he was treated with lactulose with goal of 2-3 loose stools improving his mentation. Right sided CP improved. PT evaluated patient and felt he would benefit from home PT, he feels well enough and would like to go home. Today he has no c/o GONZALES. He denies CP, SOB, N/V/D. He will be discharged home on lactulose, he will need follow up with Dr. Soliz in 1 week. services PT/OT RN and PRN PHYSICAL THERAPIST. Total discharge time approx 35 mins Home Meds and New Rx's Prescriptions: No Action furosemide 40 mg tablet 40 mg PO DAILY RF: 0 spironolactone 50 mg tablet 50 mg PO DAILY RF: 0 omeprazole 20 mg tablet,delayed release (DR/EC) 20 mg PO DAILY RF: 0 Discharge Instructions Instructions: Lactulose (By mouth), Hepatic Encephalopathy (DC), Ascites (DC), Thrombocytopenia (DC) Additional Instructions: Take lactulose twice a day to achieve 2-[address]ools Follow up Dr. Soliz in 1 week Follow up with [facility] as scheduled Stand Alone Forms: Nursing Discharge Form Activity:: Activity as Tolerated Equipment/Supplies:: No Equipment Needed Diet:: Low fat, heart healthy Discharge Orders Discharge Orders: Discharge Order (Routine); Ordered 08/13/20 Ordered By: Jenae Ugalde DS: Summary Status at Discharge Functional status at discharge: independent ambulation Overall status at discharge: patient is back to baseline Mental Status: mental status grossly normal Speech and Movement: speech and movement normal Mood: congruent mood Affect: normal affect Exam Narrative Exam Narrative: Sitting up in chair looks well, feels great no right sided pain, no GONZALES. Const General: cooperative, no acute distress and lethargic Nutritional Appearance: thin Orientation: confused HENMT Head: normocephalic and atraumatic Eyes Sclera: scleral abnormality bilaterally (icterus) Pupils: PERRL Other: icteric Neck Neck: full ROM and nontender Chest Chest: no tenderness Resp Effort & Inspection: normal respiratory effort Auscultation: clear to auscultation bilaterally Cardio Jugular venous pressure: no JVD Rate: regular rate Rhythm: regular rhythm Heart Sounds: S1 normal, S2 normal and murmur systolic GI Palpation: soft and tender (diffuse w/o guarding/rebound) Skin General skin exam: jaundice Neuro General: moves all extremities and no focal motor deficits Speech: speech normal Extrem General: no pedal edema and no calf tenderness Psych Mental Status: mental status grossly normal Speech and Movement: speech and movement normal Mood: congruent mood Affect: normal affect DS: Data Vitals/I&O Vitals and I&O: Vital Signs Temperature 36.9 C 08/13/20 07:35 Temperature Source Tympanic 08/13/20 07:35 Pulse 75 08/13/20 07:35 Pulse Rhythm Regular 08/12/20 20:00 Pulse 75 08/12/20 04:16 Respiratory Rate 18 08/13/20 07:35 Respiratory Effort Non-Labored 08/12/20 20:00 Respiratory Depth Normal 08/12/20 20:00 Respiratory Pattern Normal 08/12/20 20:00 Blood Pressure 128/69 08/13/20 07:35 Blood Pressure Mean 84 08/12/20 04:16 Blood Pressure Position Sitting 08/12/20 00:56 Pulse Oximetry 96 08/13/20 07:35 Oxygen Delivery Method Room Air 08/13/20 07:35 Oxygen Flow Rate 0 08/13/20 07:35 Pain Level 0 08/13/20 07:35 Comment 08/12/20 04:56 Intake & Output 08/12/20 08/12/20 08/13/20 11:59 23:59 11:59 Intake Total 700 / 1270 570 / 1270 Output Total 450 / 450 Balance 250 / 820 570 / 820 Weight 78.6 kg 77.4 kg Intake: IV 500 / 500 Oral 200 / 770 570 / 770 Output: Urine 450 / 450 Other: Urine Color Dark Nimo Light Nimo Yellow Urine Appearance Clear Clear Urine Odor Normal Comment Up to toilet to void. Stool Size Large Stool Characteristics Formed Hard Voiding Methods Urinal Toilet Toilet Incontinent # Voids 1 Data Completed and Pending Completed studies during hospitalization [Text1]: a RAD:XR chest 2V PA & lateral EXAM: XR CHEST 2V PA LATERAL CLINICAL HISTORY: right chest pain. TECHNIQUE: 2D digital imaging was performed. COMPARISON: Prior chest x-ray 08/04/2020 FINDINGS: Heart size is normal. The mediastinum is not widened. Mediastinal structures again noted to be shifted towards the left with decreased left hemithoracic volume again noted, unchanged. Loculated left pleural effusion again noted as well as some infiltrate in the left lung base. Overinflation of the right lung is again noted. No infiltrates on the right side. No pleural effusion on the right side. Embolization coil material is noted below the left hemidiaphragm. There is also mild wedge compression of L1 noted on the lateral view. IMPRESSION: Persistent loculated appear left pleural effusion, unchanged. Mild left lung base infiltrate. Decreased left hemithoracic volume.. The right lung remains clear. Exam(s) a CT:CT head wo EXAM: CT HEAD WO CLINICAL HISTORY: headache, known subdural. TECHNIQUE: Imaging Protocol: Axial computed tomography images with coronal and sagittal reformatted images were created and reviewed COMPARISON: CT CT HEAD WO from 08/04/2020 FINDINGS: There are no skull fractures nor fluid in the visualized paranasal sinuses. Again noted are the previously described bilateral hypodense convexity collections consistent with hygromas. There may be slight increase in size of the left hygroma. No acute blood evident therein. Mass-effect upon the cortical sulci again noted. No shift of midline structures at this time. IMPRESSION: Again noted there are the bilateral subdural hygromas. The left-side hygroma appears slightly larger than on the prior study. There is no shift of midline structures. No acute hemorrhage evident. Exam(s) PROCEDURE INFORMATION: Exam: CT Head Without Contrast Exam date and time: 08/12/2020 1:23 AM Age: 44 years old Clinical indication: Pain; Headache not specified; Patient HX: Headache, known subdural, confusion TECHNIQUE: Imaging protocol: Computed tomography of the head without contrast. COMPARISON: CT HEAD WO 08/04/2020 12:45 AM FINDINGS: Brain: Stable low density bilateral superior subdural collections. No acute intracranial hemorrhage. No acute territorial infarct. Cerebral ventricles: No ventriculomegaly. Bones/joints: Unremarkable. No acute fracture. Paranasal sinuses: Visualized sinuses are unremarkable. No fluid levels. Mastoid air cells: Visualized mastoid air cells are well aerated. Soft tissues: Unremarkable. IMPRESSION: 1. No acute intracranial finding. 2. Stable bilateral low-density subdural collections. Dictated and Authenticated by: Chepe Terrazas MD. TECHNIQUE: Imaging protocol: XR of the chest Views: 2 views. COMPARISON: CR XR CHEST 2V PA LATERAL 08/04/2020 12:58 AM FINDINGS: Lungs: Unremarkable. No consolidation. Pleural space: Left pleural effusion/blunted costophrenic angle Heart/Mediastinum: Unremarkable. No cardiomegaly. Bones/joints: Unremarkable. IMPRESSION: No acute finding. Dictated and Authenticated by: Chepe Terrazas MD. Labs on day of discharge: Labs from last 24 hours 08/13/20 08/13/20 08/13/20 06:34 06:34 06:34 WBC 5.54 RBC 2.25 L Hgb 8.5 L Hct 25.9 L MCV 115.1 H MCH 37.8 H MCHC 32.8 RDW 18.4 H Plt Count 57 L MPV 10.8 Immature Gran % 0.7 Neutrophils % 63.5 Lymphocytes % 20.6 Monocytes % 10.5 Eosinophils % 3.6 Basophils % 1.1 Nucleated RBC % 0 Absolute Neutrophils 3.52 Absolute Lymphocytes 1.14 L Absolute Monocytes 0.58 Absolute Eosinophils 0.20 Absolute Basophils 0.06 RBC Morphology See below Poikilocytosis 2+ Anisocytosis 1+ Macrocytosis 3+ Acanthocytes (Spur) 2+ PT INR APTT VBG pH 7.43 H VBG pCO2 38 L VBG pO2 54 VBG HCO3 26 VBG Total CO2 24 VBG O2 Saturation 88 VBG Base Excess 1 Sodium 138 Potassium 4.3 Chloride 110 H Carbon Dioxide 25.0 Anion Gap 3.0 BUN 8 Creatinine 0.85 Estimated GFR/1.73 m2 >= 60.00 Glucose 101 Calcium 7.6 L Total Bilirubin 7.6 H AST 45 H ALT 20 Alkaline Phosphatase 160 H Total Protein 4.9 L Albumin 1.5 L SARS-CoV-2 (PCR) Nasopharyn COVID-19 PCR Ref Test Perform Site 01/11/21 01/11/21 03:55 01:05 WBC RBC Hgb Hct MCV MCH MCHC RDW Plt Count MPV Immature Gran % Neutrophils % Lymphocytes % Monocytes % Eosinophils % Basophils % Nucleated RBC % Absolute Neutrophils Absolute Lymphocytes Absolute Monocytes Absolute Eosinophils Absolute Basophils RBC Morphology Poikilocytosis Anisocytosis Macrocytosis Acanthocytes (Spur) PT INR APTT VBG pH VBG pCO2 VBG pO2 VBG HCO3 VBG Total CO2 VBG O2 Saturation VBG Base Excess Sodium Potassium Chloride Carbon Dioxide Anion Gap BUN Creatinine Estimated GFR/1.73 m2 Glucose Calcium Total Bilirubin AST ALT Alkaline Phosphatase Total Protein Albumin SARS-CoV-2 (PCR) Negative Nasopharyn COVID-19 PCR Not Applicable Ref Test Perform Site [facility] 08/12/20 02:45 Urine - Reflex from Urine Culture - Pending Preliminary micro results at discharge 08/12/20 02:25 Blood Culture - Preliminary Blood NO GROWTH 24 HOURS 08/12/20 01:05 Blood Culture - Preliminary Blood NO GROWTH 24 HOURS 08/12/20 02:45 Urine Culture - Pending Urine - Reflex from [facility] Medical History Acute blood loss anemia Acute upper GI bleed Alcoholic cirrhosis of liver without ascites 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
--- NOTE | 2020-08-13 09:35 | PDOC.HHF2F_ITS ---
Home Health Certification Home Health Certification: 1. Encounter Date and Reason I certify that ISAI REDDY was seen by Jenae Ugalde on 08/13/20 and that I had a [id number] encounter with this patient that meets the physician face to face encounter requirements. 2. Clinical Findings Supporting Skilled Need and Homebound Status I certify that home health services are medically necessary, include either intermittent custodial and/or physical/speech therapy, and that this patient is homebound in that absences from the home require considerable and taxing effort and are infrequent or of short duration, or are attributable to the need to receive medical care. [X] (a) Attached documentation from encounter provides clinical findings supporting skilled need and homebound status (including what assistance patient requires to leave the home). The encounter with the patient was in whole, or in part, for the following medical condition, which is the primary reason for home health care: HEPATIC ENCEPHALOPATHY Fdc: Patient would benefit from Nursing for further management of medication, adls, etc Physical Therapy: Patient would benefit from PT/OT for stability, balance and gait Patient would benefit from MANUFACTURING INDUSTRIAL ENGINEER to help with community connections Homebound: Unable to leave home without assistance 3. Certification and Authentication I certify that I composed the above information based on my clinical judgement relating to this patient's medical condition and, if applicable, clinical findings communicated to me by the NPP or inpatient physician who performed the Home Health Referral. All further orders will be obtained through ___Joaquin Soliz__(Community Based Physician - PCP)
[2020-08-13 09:44] LABS: ETHANOL BLOOD < 3.0 mg/dL (<3)
--- NOTE | 2020-08-13 10:04 | PT.INTREAT ---
Date of service: 08/13/20 Time of Service: 08:35 PT Notes Visit Reasons: HEPATIC ENCEPHALOPATHY Inpatient Physical Therapy Treatment Note [facility] Date: 08/13/2020 PRECAUTIONS: Fall SUBJECTIVE: Albino reports that he is feeling so much better today. He states that he feels that he is ready to be discharged to home today. He requests a walker for outdoor and uneven surface navigation. OBJECTIVE: PAIN: No c/o pain BED MOBILITY/TRANSFERS Supine-sit: I with HOB flat Sit-supine: I with HOB flat Sit-stand: I Stand-sit: I GAIT: Assistive Device: FWW No AD Weight bearing: Full Assist: S with FWW SBA without AD Distance: 150' with FWW 300' without AD STAIRS: Up/down 6x4 and 4x6 using B rails and a step-over pattern, independently ASSESSMENT: Patient tolerated session well without complaint. He was able to tolerate a significant progression in gait distance with FWW support and without assistive device. He would benefit from continued global strengthening and gait training. PLAN: Continue with global strengthening and gait training for continued progression toward baseline level of function. TREATMENT CODE/TIME: Session 1: 15 minutes; [id number]
--- NOTE | 2020-08-13 18:49 | PDOC.CMDIS ---
- If Service Date Differs Date of service: 08/13/20 Time of Service: 18:49 LACE Index Scoring Tool - Questions: Length of Stay (in days): 1 Acuity (Admit via E.D.?): Yes Comorbidities: Liver or Renal Disease E.D. Visits: 4 - Answers: Total Score: 13 Risk of Readmission: High Risk Care Management Discharge Reason for Hospitalization: subdural hematoma Discharge Plan: Albino will discharge home with new home health services for RN, PT, LICENSED CLINICAL SOCIAL WORKER and OT. He will follow up with his PCP and possibly with his transplant team in [place]. He will transport home with his via private vehicle. Patient/Family Education Needs: Discharge plan, limitations, follow up plan, Ask Me Three
[2020-08-14 10:10] LABS: AFP Tumor Marker <2.5 ng/mL (<8.1)
--- NOTE | 2020-08-14 10:28 | PT.INDS ---
Date of service: 08/14/20 Time of Service: 10:29 PT Notes Visit Reasons: HEPATIC ENCEPHALOPATHY Physical Therapy Inpatient Discharge Summary Date: 08/12/2020 Dates of Service: 08/12/2020 through 08/13/2020 only Clinical summary of care provided on the duration of dates listed above. No charge was made in the completion of this documentation. Referring Doctor: Jenae Ugalde NP PT Orders: PT CONSULT: Eval/treat Precautions: Fall. Standard. Activity as tolerated. Patient Profile/Admitting Diagnosis: José Manuel is a 44-year-old male with past medical history significant for heterozygous alpha-antitrypsin deficiency, and severe end-stage liver failure who presented to the ED on08/12/2020 with chief complaints of R-sided chest pain and headache. He is diagnosed with subdural hematoma, acute hepatic encephaolopathy, thrombocytopenia, and alcoholic encephalopathy. 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 He states that he and his are in the process of divorce and he does not know how much help he can get once he is on his own. He states that he is looking for a place he can go to that can provide his needs. In the meantime, the ex- has agreed for him to go back while he is looking for another place to stay. Equipment Owned/DME: None previously owned Subjective: NT. See most recent FLIGHT SOFTWARE TEST ENGINEER notes. Objective: General Observation: NT. See most recent FLIGHT SOFTWARE TEST ENGINEER notes. Mental Status: NT. See most recent FLIGHT SOFTWARE TEST ENGINEER notes. Pain: NT. See most recent FLIGHT SOFTWARE TEST ENGINEER notes. ROM: Right Upper Extremity: Shoulder Flexion WFL. Shoulder abduction WFL. Elbow flexion WFL. Wrist flexion WFL. Opening and closing of hand WFL. Left Upper Extremity: Shoulder Flexion WFL. Shoulder abduction WFL. Elbow flexion WFL. Wrist flexion WFL. Opening and closing of hand WFL. Right Lower Extremity: Hip flexion WFL. Hip abduction WFL. Knee flexion WFL. Ankle dorsiflexion WFL. Ankle plantarflexion WFL. Left Lower Extremity: Hip flexion WFL. Hip abduction WFL. Knee flexion WFL. Ankle dorsiflexion WFL. Ankle plantarflexion WFL. Strength: Right Upper Extremity: Shoulder flexors 4-/5. Shoulder abductors 4-/5. Elbow flexors 4/5. Elbow extensors 4-/5. Film Touch Up Inspector strong. Left Upper Extremity: Shoulder flexors 4-/5. Shoulder abductors 4-/5. Elbow flexors 4/5. Elbow extensors 4-/5. Film Touch Up Inspector strong. Right Lower Extremity: Hip flexors 3+/5. Hip abductors 4-/5. Knee flexors 4/5. Knee extensors 4-/5. Ankle dorsiflexors 4-/5. Ankle plantarflexors 4-/5. Left Lower Extremity: Hip flexors 3+/5. Hip abductors 4-/5. Knee flexors 4/5. Knee extensors 4-/5. Ankle dorsiflexors 4-/5. Ankle plantarflexors 4-/5. Sensation: Intact as to pain and pressure on bilateral lower extremities. Bed Mobility/Transfers: Rolling independent Supine to sit independent Sit to supine independent Sit to stand independent Stand to sit independent Bed to chair independent Gait: Guided patient through 150 feet of level surface ambulation using the FWW with supervision and SBA without n assistive devive for 300 feet, andrew very much improved. No complaints of abdominal pain. Balance: Static Sitting: Normal Dynamic Sitting: Normal Static Standing: Fair Dynamic Standing: Fair Assessment: José Manuel requires the use of a front-wheeled walker for all mobility ADL performance to reduce fall risk at home. He will benefit from PT services in order to address ongoing impairments listed above and maximize his ability to stay at home. He will need assistance with meal preparation, medical transportation, grocery shopping, and inspector printed circuit boards as his soon-to-be ex will not be able to help him 100% of the time once he returns home. Patient continues to present with clinical signs and symptoms consistent with current/admitting diagnoses that have resulted to mobility limitations, gait instability, generalized weakness, and impairment of motor control as demonstrated by the following impairment level findings: 1. Decreased strength to B LE major muscle groups 2. Impaired standing balance 3. Impaired activity tolerance, easy fatigability (chronic problem) 4. Abdominal pain Impairments are continuing to contribute to the following functional limitations: 1. Inability to safely ambulate without assistive device and physical assistance 2. Increase completion time for mobility ADL performance 3. Increased fall risk 4. Inability to negotiate steps alone safely Goals: Goals X1 week 1. Supine-Sit independent MET 2. Sit-Supine independent MET 3. Sit-Stand independent MET 4. Stand-Sit independent MET 5. Bed-Chair independent MET 6. Chair-Bed independent MET 7. Independent gait on level surface with use of FWW for at least 100 feet without report of pain nor dyspnea NOT MET 8. Independent stair negotiation while holding onto bilateral rails for at least 5 steps without report of pain nor dyspnea NOT MET 9. Good static and dynamic standing balance/tolerance NOT MET DISCHARGE RECOMMENDATIONS: Patient will benefit from home health PT services in order to progress mobility level using least restrictive assistive ambulatory device, assess home safety, identify additional equipment needs, and establish a functional maintenance program that will increase ability of patient to remain at home. TREATMENT CODE/TIME: NC. Thank you for the opportunity to participate in the care of this patient. Norma Weaver PT, DPT, CLT [facility] [place], [place]
[2020-08-15 16:07] LABS: 25-Hydroxy D Total <6.0 ng/mL; 25-Hydroxy D2 <4.0 ng/mL; 25-Hydroxy D3 4.1 ng/mL
== END 2020-08-13 11:28 | disposition home health service (06) | DRG 441 ==
LOC: ER 04:08 → MS 04:48
PROVIDERS: Nurse Practitioner Adult Health; Admitting Provider Family Medicine; Emergency Provider Student in an Organized Health Care Education/Training Program; PCP Family Medicine; Visit Provider Family Medicine
DX: K72.00 Acute and subacute hepatic failure without coma (principal); I62.03 Nontraumatic chronic subdural hemorrhage; K70.31 Alcoholic cirrhosis of liver with ascites; F10.11 Alcohol abuse, in remission; D69.59 Other secondary thrombocytopenia; F17.210 Nicotine dependence, cigarettes, uncomplicated
CPT/HCPCS: 36415; 80053; 82306; 82805; 87040; 93005; 96360; 97162; 97530; 99222; 99239; 99285; NC; U0003; 70450; 71046; 80320; 81003; 81015; 82105; 82140; 84484; 85025; 85610; 85730; 87086; 93010

== ENCOUNTER 2020-08-17 20:01 | Inpatient (IN) | payer OTHER, SELFPAY ==
[2020-08-17] VITALS (7 sets, daily range): BP systolic 122–154; BP diastolic 45–76; PULSE 74–98; RESP 15–20; TEMP 36.7; O2SAT 99–100
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
--- NOTE | 2020-08-17 20:15 | RT.EKG_ITS ---
APPROVED REPORT Exam: Resting ECG Patient Location: E HR:89 bpm ECG Measurements Heart Rate 89 AXIS CA 134 P 93 QRSd 105 QRS -12 QT 413 T 94 QTc 502 Conclusion Sinus rhythm...normal P axis, V-rate 60- 99 Probable left atrial enlargement...P >50mS, <-0.10mV V1 Nonspecific T abnormalities, anterior leads...T <-0.10mV, V2-V4 ST elevation, consider inferior injury...ST >0.08mV, II III aVF Prolonged QT interval...QTc >500mS ] significant motion artifact
--- NOTE | 2020-08-17 20:30 | DI.CT_ITS ---
EXAM: CT HEAD WO CLINICAL HISTORY: confusion, hx of subdural. TECHNIQUE: Imaging Protocol: Axial computed tomography images with coronal and sagittal reformatted images were created and reviewed COMPARISON: CT CT HEAD WO from 08/12/2020 FINDINGS: Ventricles and Extra axial spaces: Again seen effacement of the sulci bilaterally patient is likely d ue to the patient's bilateral subdural hygromas. The ventricles appear small in size which is stable . This also is likely due to the mass effect from the bilateral subdural hygromas. Hemorrhage: There again seen bilateral subdural hygromas. There does appear to be slight increase in size of both hygromas compared to the prior examination. There is now slightly hyperdense material seen in the left hygroma adjacent to the left parietal bone suggestive of a subacute hemorrhage. ( leroy 2, image 38). There is also high density material within the left-sided dural hygroma adjacent to the left frontal lobe which may represent a small acute subdural hemorrhage. Cerebral parenchyma: No evidence of an acute territorial infarct. Midline shift: None. Brainstem/Cerebellum: Normal. Calvarium: Normal. Visualized Paranasal sinuses/Mastoids: Clear. Soft Tissues: Unremarkable. IMPRESSION: 1. Bilateral subdural hygromas. There appears to be slight increase in size compared to the prior ex amination. 2. Focal hyperdensity within the subdural a within the left subdural hygroma adjacent to the left fro ntal lobe suspicious for an acute subdural hemorrhage. 3. Area of hyperdense material within the left hygroma adjacent to the left parietal lobe suggestive of subacute hemorrhage. RADIATION DOSE DELIVERED: 764.44mGy.cm Total DLP DATA REPOSITORY: All CT scans at this facility are submitted to the National Radiology Data Registry (NRDR) Dose Index Registry (DIR) with the [employer] (A[employer]). RADIATION OPTIMIZATION: All CT scans at this facility use at least one of these dose optimization te chniques: automated exposure control; mA and/or kV adjustment per patient size (includes targeted exa ms where dose is matched to clinical indication); or iterative reconstruction.
[2020-08-17 20:38] LABS: BE (Venous) 2 mmol/L (-2-3); HCO3 (Venous) 26 mmol/L (23-28); O2 Sat (Venous) 92 %; TCO2 (Venous) 24 mmol/L (24-29); pCO2 (Venous) 37 mmHg (41-51); pH (Venous) 7.46 (7.31-7.41); pO2 (Venous) 59 mmHg
[2020-08-17 20:46] LABS: Abs Immature Grans 0.03 10^3/uL (0.0-0.06); Absolute Basophil Count 0.08 10^3/uL (0.0-0.2); Absolute Lymphocyte Count 1.11 10^3/uL (1.2-3.4); Absolute Monocyte Count 0.63 10^3/uL (0.1-0.8); Basophils % 1.3; Eosinophils % 1.6; HCT 27.8 % (40.0-50.0); HGB 9.2 g/dL (13.5-17.5); Immature Grans % 0.5; Lymphocytes % 17.8; MCH 38.2 pg (27.0-33.0); MCHC 33.1 % (32.0-36.0); MCV 115.4 fL (80-95); Monocytes % 10.1; Neutrophils % 68.7; Nucleated RBC 0 %; RBC 2.41 10^6/uL (4.36-5.78); RDW 17.4 % (11.8-14.1); RDW-SD 73.6 fL; WBC 6.25 10^3/uL (4.4-10.8)
[2020-08-17 20:49] LABS: Ammonia 56 umol/L (11-32)
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
[2020-08-17 20:55] LABS: Platelet Count 71 10^3/uL (130-400)
[2020-08-17 20:59] LABS: ALT 26 U/L (16-63); AST 60 U/L (15-37); Albumin 1.8 g/dL (3.4-5.0); Alkaline Phosphatase 234 U/L (46-116); Anion Gap 4.4 mmol/L (3-11); BUN 9 mg/dL (7-18); Bilirubin, Total 10.2 mg/dL (0.2-1.0); CO2 25.6 mmol/L (21.0-32.0); Calcium 7.8 mg/dL (8.5-10.1); Chloride 110 mmol/L (98-107); Glucose 113 mg/dL (74-106); Magnesium 1.7 mg/dL (1.8-2.4); Sodium 140 mmol/L (136-145); Total Protein 6.3 g/dL (6.4-8.2); Troponin I < 0.05 ng/mL (<0.06)
--- NOTE | 2020-08-17 21:00 | DI.RAD_ITS ---
EXAM: XR CHEST 2V PA LATERAL CLINICAL HISTORY: weakness TECHNIQUE: 2D digital imaging was performed. COMPARISON: CR,XR XR CHEST 2V PA LATERAL from 08/12/2020 FINDINGS: MEDIASTINUM: Normal. HEART: Normal. PULMONARY VASCULATURE: Normal. LUNGS: Stable scarring or atelectasis is seen in the left lung. There is persistent decreased volume of the left hemithorax. The right lung remains clear. PLEURAL SPACE: There is an unchanged left pleural effusion noted. There is no pneumothorax. BONE:Within normal limits for the patient's age. OTHER FINDINGS:There is again seen a TIPS stent in the right upper quadrant of the abdomen. Emboliza tion coils are seen in the left upper quadrant of the abdomen. IMPRESSION: 1. No acute pulmonary findings. 2. Stable left scarring/atelectasis and and pleural effusion. DATA REPOSITORY: RADIATION DOSE DELIVERED:
--- NOTE | 2020-08-17 21:00 | NUR.NOTE ---
Pt noted to have approx 2cm round abrasion to shoulder with bruising. States he fell in the bathroom. bruising to kelli forearm, pt unsure where bruising came from.
[2020-08-17 21:06] LABS: Diff Comment RBC Morph Reviewed; Macrocytosis 3+; Poikilocytes 1+; Polychromasia Present
[2020-08-17 21:08] LABS: ETHANOL BLOOD < 3.0 mg/dL (<3)
[2020-08-17 21:20] LABS: Bilirubin Moderate (Negative); Blood Large (Negative); Clarity Cloudy (Clear); Glucose 100 mg/dL (Negative); Ketones Negative (Negative); Leukocyte Esterase Negative (Negative); Nitrite Negative (Negative); Specific Gravity 1.025 (1.005-1.025); Urobilinogen >=8.0 EU/dL (Up TO 0.2)
[2020-08-17 21:33] LABS: Bacteria Negative HPF (Negative); C & S Indicated? No; Casts Negative LPF (Negative); Crystals Negative HPF (Negative); Epithelial Cells Rare HPF (Negative); Mucus Negative (Negative); RBC >50 HPF (0-2); WBC 0-2 HPF (0-5)
[2020-08-17] MEDS: Lactulose 20 GM/30 ML CUP PO (22:04)
--- NOTE | 2020-08-17 22:11 | DI.VRAD_ITS ---
PROCEDURE INFORMATION: Exam: XR Chest, 2 Views Exam date and time: 08/17/2020 9:10 PM Age: 44 years old Clinical indication: Other: Weakness TECHNIQUE: Imaging protocol: XR of the chest Views: 2 views. COMPARISON: CR XR CHEST 2V PA LATERAL 08/12/2020 1:33 AM FINDINGS: Tubes, catheters and devices: Embolization coil in the left upper quadrant. CBD stent over the right upper quadrant. Lungs: Linear opacities of atelectasis and/or fibrosis within left lung. Pleural space: Left-sided pleural effusion. Heart/Mediastinum: Unremarkable. No cardiomegaly. Bones/joints: Unremarkable. IMPRESSION: No large infiltrates or effusions on the right. Left-sided pleural effusion. Linear opacities of atelectasis and/or fibrosis over the left lung. Dictated and Authenticated by: Ryan Fatima MD. Ordering:WARD Cadena MD
--- NOTE | 2020-08-17 22:27 | DI.VRAD_ITS ---
Addendum created by Ryan Fatima MD on 08/17/2020 10:36:34 PM EST: THIS REPORT CONTAINS FINDINGS THAT MAY BE CRITICAL TO PATIENT CARE. The findings were verbally communicated via telephone conference with LIZY PEREZ at 10:36 PM EST on 08/17/2020. The findings were acknowledged and understood. Initial report created on 08/17/2020 10:26:48 PM EST: PROCEDURE INFORMATION: Exam: CT Head Without Contrast Exam date and time: 08/17/2020 8:40 PM Age: 44 years old Clinical indication: Altered mental status/memory loss; Confusion or disorientation; Patient HX: Confusion, HX of subdural TECHNIQUE: Imaging protocol: Computed tomography of the head without contrast. COMPARISON: CT HEAD WO 08/12/2020 1:26 AM FINDINGS: Brain: Bilateral subdural hygromas. Focal area of mildly increased hyperdensity within left-sided collection, not seen on the prior study, may represent a subacute subdural. Small extra-axial subdural hyperdensity a along the anterior inferior left frontal lobe, 1.5 x 0.6 centimetres, may represent a small acute subdural. Cerebral ventricles: Small ventricles, cannot rule out chronic mass effect from bilateral subdural collections. Bones/joints: No acute fracture. Paranasal sinuses: Visualized sinuses are unremarkable. No fluid levels. Mastoid air cells: Unremarkable as visualized. No mastoid effusion. Soft tissues: Unremarkable. IMPRESSION: Bilateral hygromas and focal area of hyperdensity along left anterior inferior frontal lobe not seen on the prior study, 1.5 x 0.6 centimetres, suspicious for an acute subdural. Additionally, there is a focal area of mildly increased density within left-sided hygroma, not seen on the prior study, suspicious for subacute bleed. Dictated and Authenticated by: Ryan Fatima MD. Ordering:WARD Cadena MD
[2020-08-18] VITALS (13 sets, daily range): BP systolic 114–136; BP diastolic 74–79; PULSE 69–81; RESP 14–18; TEMP 36–37.7; O2SAT 97–100
[2020-08-18] MEDS: Normal Saline 1,000 ML 80 ML IV ×2 (03:13→16:12)
[2020-08-18] MEDS: Normal Saline Flush 10 ML SYR IVP (03:17)
[2020-08-18 07:02] LABS: Abs Immature Grans 0.03 10^3/uL (0.0-0.06); Absolute Basophil Count 0.08 10^3/uL (0.0-0.2); Absolute Eosinophil Count 0.15 10^3/uL (0.0-0.7); Absolute Lymphocyte Count 0.93 10^3/uL (1.2-3.4); Absolute Monocyte Count 0.69 10^3/uL (0.1-0.8); Absolute Neutrophil Count 3.82 10^3/uL (1.2-6.7); Basophils % 1.4; Eosinophils % 2.6; HCT 25.6 % (40.0-50.0); HGB 8.5 g/dL (13.5-17.5); Immature Grans % 0.5; Lymphocytes % 16.3; MCH 38.6 pg (27.0-33.0); MCHC 33.2 % (32.0-36.0); MCV 116.4 fL (80-95); MPV 10.4 fL (8.0-11.0); Monocytes % 12.1; Neutrophils % 67.1; Nucleated RBC 0 %; RDW 17.1 % (11.8-14.1); RDW-SD 73.5 fL
[2020-08-18 07:20] LABS: ALT 24 U/L (16-63); AST 54 U/L (15-37); Albumin 1.6 g/dL (3.4-5.0); Alkaline Phosphatase 201 U/L (46-116); Anion Gap 5.9 mmol/L (3-11); BUN 9 mg/dL (7-18); Bilirubin, Total 9.9 mg/dL (0.2-1.0); CO2 25.1 mmol/L (21.0-32.0); CREATININE 0.83 mg/dL (0.70-1.30); Calcium 7.6 mg/dL (8.5-10.1); Chloride 110 mmol/L (98-107); Glucose 112 mg/dL (74-106); Magnesium 1.6 mg/dL (1.8-2.4); Sodium 141 mmol/L (136-145); Total Protein 5.6 g/dL (6.4-8.2)
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
[2020-08-18 07:44] LABS: Anisocytosis 1+; Burr Cells (echinocyte) 2+; Macrocytosis 3+; Platelet Count 63 10^3/uL (130-400)
[2020-08-18 07:45] LABS: Poikilocytes 2+
[2020-08-18 07:46] LABS: Diff Comment PLT Morph Reviewed
[2020-08-18] MEDS: Furosemide 40 MG TAB PO (07:46)
[2020-08-18] MEDS: Spironolactone 50 MG TAB PO (07:46)
[2020-08-18] MEDS: Omeprazole 20 MG CAPCR PO (07:47)
[2020-08-18] MEDS: Lactulose 20 GM/30 ML CUP 30 GM PO ×4 (07:47→19:52)
[2020-08-18 07:57] LABS: TSH (W/Ref FT4) 1.36 uIU/mL (0.36-3.74)
[2020-08-18] MEDS: Magnesium Oxide 400 MG TAB 800 MG PO (09:42)
[2020-08-18] MEDS: MAGNESIUM SULFATE 2 GM/50 ML BAG IVPB (09:42)
--- NOTE | 2020-08-18 11:47 | W.PM.PROGNOT ---
Date of Service Date of service: 08/18/20 Time of Service: 11:47 Assessment and Plan Assessment and plan (1) Acute hepatic encephalopathy: Start date: 08/18/20 Start time: 12:00 Status: Acute Assessment and plan: altered mental status secondary to poor dosing of lactulose at home for chronic hepatic encephalopathy and end-stage alcoholic cirrhosis. He is obtunded, but waking for nursing, taking food and medication. I suspect that he did not hot die picker his prescription from the pharmacy after finishing the doses given to him from the hospital day of discharge. (2) Subdural hematoma: Start date: 08/18/20 Start time: 12:33 Status: Chronic Assessment and plan: By review with [facility] neurology the CT scan of the head upon admission appears stable. Continue to monitor. Patient does have a coagulopathy associated with his liver failure. (3) Alcoholic cirrhosis of liver with ascites: Start date: 08/18/20 Start time: 12:35 Status: Chronic Assessment and plan: Patient supposedly is on liver transplant list and should continue supportive care and symptomatic treatment with continued lactulose on a better schedule and at increased dosing. He will need 24-hour supervision for this to occur. Monitor labs as needed. Patient's CODE STATUS should be reviewed if liver transplant is not an eminent. Above case discussed with Dr. Hubbard who is in agreement. Subjective Subjective Patient reports: other Interval history since last seen: Patient confused, obtunded, jaundice. Continue lactulose. Exam Narrative Exam Narrative: General: Patient appears older than stated age, cachectic and extremely jaundiced. He is not oriented to person place or time. He has a flattened affect with little variation and does not appear in acute distress. HEENT: Normocephalic with masklike facies being expressionless, atraumatic head and face. Eyes with pupils equal and reactive to light symmetrically, extraocular movement intact and sclera icteric. Oropharynx with dry mucosa. Neck: Supple without JVD. Lungs: Clear to auscultation with fair air movement. Heart: Regular rate and rhythm with no appreciable murmurs, gallops or rubs. Abdomen: Normal contour with no obvious protuberance from history of ascites, soft and nontender to palpation. No palpable hepatosplenomegaly. Bowel sounds positive in all quadrants. Genitalia/rectal: Exam deferred. Extremities: Without clubbing, cyanosis or pitting edema with patient having diffuse muscle wasting over his extremities. Peripheral pulses intact. Skin: Jaundice diffusely with darkly tanned appearing skin. Decreased turgor without tenting. Warm and dry to touch. Neuro: Cranial nerves II through XII gross intact, no focalizing motor deficits with patient appearing diffusely weak. Psych: Flattened affect with poor variation, mood appears depressed. Patient does not appear to have delusional thought processes but wanders in conversation and answers with his birthdate when questioned. Remote and recent memory not intact at the time of my exam Objective Last Vital Signs Temp 36 C L 08/18/20 11:43 Pulse 77 08/18/20 11:43 Resp 18 08/18/20 11:43 BP 130/76 08/18/20 11:43 Pulse Ox 99 08/18/20 11:43 Laboratory Results - last 24 hr 08/17/20 08/17/20 08/17/20 20:25 20:25 20:25 WBC RBC Hgb Hct MCV MCH MCHC RDW Plt Count MPV Immature Gran % Neutrophils % Lymphocytes % Monocytes % Eosinophils % Basophils % Nucleated RBC % Absolute Neutrophils Absolute Lymphocytes Absolute Monocytes Absolute Eosinophils Absolute Basophils RBC Morphology Polychromasia Poikilocytosis Anisocytosis Macrocytosis [place] Cells/Echinocytes PT INR APTT VBG pH VBG pCO2 VBG pO2 VBG HCO3 VBG Total CO2 VBG O2 Saturation VBG Base Excess Sodium Potassium Chloride Carbon Dioxide Anion Gap BUN Creatinine Estimated GFR/1.73 m2 Glucose Calcium Magnesium Total Bilirubin AST ALT Alkaline Phosphatase Ammonia 56 H Troponin I Total Protein Albumin TSH Urine Color Urine Clarity Urine pH Ur Specific [place] Urine Protein Urine Ketones Urine Blood Urine Nitrite Urine Bilirubin Urine Urobilinogen Ur Leukocyte Esterase Urine RBC Urine WBC Ur Epithelial Cells Urine Crystals Urine Bacteria Urine Casts Urine Mucus Ur Culture Indicated? Urine Glucose Ethyl Alcohol < 3.0 08/17/20 08/17/20 08/17/20 20:25 20:25 20:25 WBC 6.25 RBC 2.41 L Hgb 9.2 L Hct 27.8 L MCV 115.4 H MCH 38.2 H MCHC 33.1 RDW 17.4 H Plt Count 71 L MPV 10.0 Immature Gran % 0.5 Neutrophils % 68.7 Lymphocytes % 17.8 Monocytes % 10.1 Eosinophils % 1.6 Basophils % 1.3 Nucleated RBC % 0 Absolute Neutrophils 4.30 Absolute Lymphocytes 1.11 L Absolute Monocytes 0.63 Absolute Eosinophils 0.10 Absolute Basophils 0.08 RBC Morphology See below Polychromasia Present Poikilocytosis 1+ Anisocytosis Macrocytosis 3+ [place] Cells/Echinocytes PT INR APTT VBG pH 7.46 H VBG pCO2 37 L VBG pO2 59 VBG HCO3 26 VBG Total CO2 24 VBG O2 Saturation 92 VBG Base Excess 2 Sodium 140 Potassium 4.0 Chloride 110 H Carbon Dioxide 25.6 Anion Gap 4.4 BUN 9 Creatinine 0.90 Estimated GFR/1.73 m2 >= 60.00 Glucose 113 H Calcium 7.8 L Magnesium 1.7 L Total Bilirubin 10.2 H AST 60 H ALT 26 Alkaline Phosphatase 234 H Ammonia Troponin I < 0.05 Total Protein 6.3 L Albumin 1.8 L TSH Urine Color Urine Clarity Urine pH Ur Specific [place] Urine Protein Urine Ketones Urine Blood Urine Nitrite Urine Bilirubin Urine Urobilinogen Ur Leukocyte Esterase Urine RBC Urine WBC Ur Epithelial Cells Urine Crystals Urine Bacteria Urine Casts Urine Mucus Ur Culture Indicated? Urine Glucose Ethyl Alcohol 08/17/20 08/18/20 08/18/20 21:00 06:24 06:24 WBC RBC Hgb Hct MCV MCH MCHC RDW Plt Count MPV Immature Gran % Neutrophils % Lymphocytes % Monocytes % Eosinophils % Basophils % Nucleated RBC % Absolute Neutrophils Absolute Lymphocytes Absolute Monocytes Absolute Eosinophils Absolute Basophils RBC Morphology Polychromasia Poikilocytosis Anisocytosis Macrocytosis [place] Cells/Echinocytes PT INR APTT VBG pH VBG pCO2 VBG pO2 VBG HCO3 VBG Total CO2 VBG O2 Saturation VBG Base Excess Sodium 141 Potassium 4.0 Chloride 110 H Carbon Dioxide 25.1 Anion Gap 5.9 BUN 9 Creatinine 0.83 Estimated GFR/1.73 m2 >= 60.00 Glucose 112 H Calcium 7.6 L Magnesium 1.6 L Total Bilirubin 9.9 H AST 54 H ALT 24 Alkaline Phosphatase 201 H Ammonia Troponin I Total Protein 5.6 L Albumin 1.6 L TSH 1.36 Urine Color [place] Urine Clarity Cloudy Urine pH 7.0 Ur Specific [place] 1.025 Urine Protein Trace H Urine Ketones Negative Urine Blood Large H Urine Nitrite Negative Urine Bilirubin Moderate H Urine Urobilinogen >=8.0 Ur Leukocyte Esterase Negative Urine RBC >50 H Urine WBC 0-2 Ur Epithelial Cells Rare Urine Crystals Negative Urine Bacteria Negative Urine Casts Negative Urine Mucus Negative Ur Culture Indicated? No Urine Glucose 100 Ethyl Alcohol 08/18/20 08/18/20 06:24 06:24 WBC 5.70 RBC 2.20 L Hgb 8.5 L Hct 25.6 L MCV 116.4 H MCH 38.6 H MCHC 33.2 RDW 17.1 H Plt Count 63 L MPV 10.4 Immature Gran % 0.5 Neutrophils % 67.1 Lymphocytes % 16.3 Monocytes % 12.1 Eosinophils % 2.6 Basophils % 1.4 Nucleated RBC % 0 Absolute Neutrophils 3.82 Absolute Lymphocytes 0.93 L Absolute Monocytes 0.69 Absolute Eosinophils 0.15 Absolute Basophils 0.08 RBC Morphology See below Polychromasia Poikilocytosis 2+ Anisocytosis 1+ Macrocytosis 3+ [place] Cells/Echinocytes 2+ PT INR APTT VBG pH VBG pCO2 VBG pO2 VBG HCO3 VBG Total CO2 VBG O2 Saturation VBG Base Excess Sodium Potassium Chloride Carbon Dioxide Anion Gap BUN Creatinine Estimated GFR/1.73 m2 Glucose Calcium Magnesium Total Bilirubin AST ALT Alkaline Phosphatase Ammonia Troponin I Total Protein Albumin TSH Urine Color Urine Clarity Urine pH Ur Specific [place] Urine Protein Urine Ketones Urine Blood Urine Nitrite Urine Bilirubin Urine Urobilinogen Ur Leukocyte Esterase Urine RBC Urine WBC Ur Epithelial Cells Urine Crystals Urine Bacteria Urine Casts Urine Mucus Ur Culture Indicated? Urine Glucose Ethyl Alcohol
--- NOTE | 2020-08-18 14:21 | PHA.REVIEW ---
Pharmacy Admission Review - Admission Clinical Review (Last Reviewed 08/18/20 @ 07:40 by Albert Wang) Altered mental status (Acute) Encephalopathy (Acute) Coagulopathy (Acute) Acute hepatic encephalopathy (Acute) No Known Allergies Allergy (Unverified 08/17/20 20:16) Height 6 ft 2 in Weight 73.9 kg - Renal Dosing Renal Dosing: BUN 9 mg/dL (7-18) 08/18/20 06:24 Creatinine 0.83 mg/dL (0.70-1.30) 08/18/20 06:24 Medications needing adjustments: Reviewed (crcl ~117ml/min) - Anticoagulation Anticoagulation: Hgb 8.5 g/dL (13.5-17.5) L 08/18/20 06:24 Hct 25.6 % (40.0-50.0) L 08/18/20 06:24 Plt Count 63 10^3/uL (130-400) L 08/18/20 06:24 INR Cancelled 08/18/20 13:52 Creatinine 0.83 mg/dL (0.70-1.30) 08/18/20 06:24 DVT Prohphylaxis: N/A (low PLT) Therapeutic Anticoagulation: N/A - Relevant Labs Sodium 141 mmol/L (136-145) 08/18/20 06:24 Potassium 4.0 mmol/L (3.5-5.1) 08/18/20 06:24 Chloride 110 mmol/L (98-107) H 08/18/20 06:24 Magnesium 1.6 mg/dL (1.8-2.4) L 08/18/20 06:24 Electrolytes, C-Reactive P, ESR: Reviewed (Mag replacement ordered) - DM Control DM Control: Glucose 112 mg/dL (74-106) H 08/18/20 06:24 - Heart Failure/WI Heart Failure/WI: Troponin I < 0.05 ng/mL (<0.06) 08/17/20 20:25 - BP Control BP Control: Blood Pressure 130/76 Blood Pressure 114/74 Blood Pressure 134/74 If elevated: N/A - Qtc Review If Elevated: Reviewed (502. omeprazole (CR)) - IV to PO Switch IV Medications: Reviewed (IVF, PO meds) - Home Meds Home Med List reviewed: Reviewed (question of compliance at home) - Current meds Current Medication Order Review: Reviewed
--- NOTE | 2020-08-18 15:49 | INITIAL_ITS ---
- If Service Date Differs Date of service: 08/18/20 Time of Service: 16:13 Care Management Initial Assess REASON FOR HOSPITALIZATION:: Hepatic Encephalopathy PAST MEDICAL HISTORY/PAST SURGICAL HISTORY:: Per MD: altered mental status secondary to poor dosing of lactulose at home for chronic hepatic encephalopathy and end-stage alcoholic cirrhosis. Patient will be admitted to observation with consideration of transfer to level 1 care and placement to level 1 facility for continued care and maintenance until possible liver transplant. Prognosis is poor for this occurring quickly. Patient is a full code. Acute blood loss anemia, acute upper GI bleed, alcholic cirrhosis of liver without ascites, blood coagulation disorder due to liver disease, esophageal varices in alcoholic cirrhosis, TIPS PREVIOUS FUNCTIONAL STATUS/SOCIAL/FAMILY SUPPORTS:: José Manuel lives with his Lissa and his son in [place]. He states that they are but that she is allowing him to live there for the time being. They have 2 children, ages 11 and 21. José Manuel is not employed; he is disabled. He is able to perform ADLs but does need assistance. CURRENT FUNCTIONAL STATUS:: Confused, CM continues to follow. ADVANCE DIRECTIVES:: None on file Has patient been provided with info about the portal/API?: Yes Did the patient sign up for the portal?: No CODE STATUS:: Full Code INSURANCE COVERAGE / FINANCIAL ISSUES:: [employer] CURRENT HOME/COMMUNITY SERVICES/EQUIPMENT:: Discharged last week with new orders for RN/PT/OT. PRIMARY CARE PHYSICIAN:: Joaquin Soliz POTENTIAL DISCHARGE NEEDS:: Further evaluation, follow up appointments, discharge planning. PATIENT/FAMILY EDUCATION NEEDS:: Review discharge instructions, community based supports, SNF options, discuss self care needs upon discharge; [facility] [employer]. ANTICIPATED BARRIERS TO DISCHARGE:: Discharge plan, limitations, follow up plan, [facility] [employer] TRANSPORTATION:: Via private vehicle. PLAN:: Albino will likely discharge home with resumption of home health services for RN,PT and OT-vs-SNF placement. He will follow up with his PCP and possibly with his transplant team in [place]. CM continues to follow. Per MD: Patient supposedly is on liver transplant list and should continue supportive care and symptomatic treatment with continued lactulose on a better schedule and at increased dosing. He will need 24-hour supervision for this to occur. Monitor labs as needed. Patient's CODE STATUS should be reviewed if liver transplant is not an eminent. Readmission - Within the Past 30 Days Yes or No: Y - Date of First Admission Date of 1st Admission: 07/02/20 (3rd Admission) - Assessment for Readmission Summary of readmission circumstances, based upon interviews: This is a 44-year-old male patient who has advanced alcoholic cirrhosis with ascites and recurrent hepatic encephalopathy not being compliant with his lactulose therapy at home. He is supervised by his but not continuously and by history there is a divorce in process with a strained relationship at his home. He also is urinating in the tub and is unable to supervise and take his own medications at home. He has had frequent falls with subdurals which were deemed stable per [facility] consultation from the ED prior to admission for observation. The patient did recently have a hospitalization for a similar issue of hepatic encephalopathy exacerbation with poor compliance of meds. He will be observed and should consider level 1 admission and placement with appropriate social service coordinator consultation. Reviewing his medical history he appears to be stable and is awaiting liver transplant. Per history he has not had alcohol intake in any significant amount. Presently he is denying any headache or nausea and states that he has been stooling at home though this is questionable. Patient was on low-dose of lactulose at 20 g twice daily. Patient supposedly is on liver transplant list and should continue supportive care and symptomatic treatment with continued lactulose on a better schedule and at increased dosing. He will need 24-hour supervision for this to occur. Monitor labs as needed. Patient's CODE STATUS should be reviewed if liver transplant is not imminent.
[2020-08-18 21:16] LABS: COVID-19 RT-PCR UVMMC Result Negative (Negative)
[2020-08-19] VITALS (9 sets, daily range): BP systolic 111–132; BP diastolic 66–98; PULSE 70–86; RESP 17–19; TEMP 36.4–37.2; O2SAT 98–99
[2020-08-19] MEDS: Normal Saline 1,000 ML 80 ML IV (05:08)
[2020-08-19 07:04] LABS: Magnesium 1.7 mg/dL (1.8-2.4)
[2020-08-19] MEDS: Furosemide 40 MG TAB PO (07:32)
[2020-08-19] MEDS: Lactulose 20 GM/30 ML CUP 30 GM PO ×4 (07:32→20:19)
[2020-08-19] MEDS: Spironolactone 50 MG TAB PO (07:32)
[2020-08-19] MEDS: Omeprazole 20 MG CAPCR PO (07:32)
--- NOTE | 2020-08-19 09:27 | PGE_ITS ---
Date of Service Date of service: 08/19/20 Time of Service: 09:27 Assessment and Plan Assessment and plan (1) Acute hepatic encephalopathy: Status: Acute Assessment and plan: altered mental status secondary to poor dosing of lactulose at home for chronic hepatic encephalopathy and end-stage alcoholic cirrhosis. He is slowly improving, taking food and medication and now oriented. His presentation is likely d/t medication non compliance (2) Subdural hematoma: Status: Chronic Assessment and plan: By review with [facility] [place] the CT scan of the head upon admission appears stable. Continue to monitor. Patient does have a coagulopathy associated with his liver failure. (3) Alcoholic cirrhosis of liver with ascites: Status: Chronic Assessment and plan: Patient supposedly is on liver transplant list and should continue supportive care and symptomatic treatment with continued lactulose on a better schedule and at increased dosing. He will need 24-hour supervision for this to occur. Monitor labs as needed. Patient's CODE STATUS should be reviewed if liver transplant is not an eminent. Above case discussed with Dr. Hubbard who is in agreement. (4) Ambulatory dysfunction: Status: Acute Assessment and plan: patient with generalized weakness, and now able to participate with therapy PT/OT consult placed (5) Discharge planning issues: Status: Acute Assessment and plan: case management following [facility] rehabilitation Subjective Subjective Patient reports: no new complaints, tolerating liquids well, tolerating a regular diet, voiding w/o difficulty, bowel movement and afebrile Interval history since last seen: he is slowly improving, today oriented to person, place and situation. hemodynamically stable. Exam Narrative Exam Narrative: General: Patient appears older than stated age, cachectic and jaundiced. He is oriented to person, place and situation HEENT: Normocephalic atraumatic. EOMI and sclera icteric. Oropharynx with dry mucosa. Neck: Supple without JVD. Lungs: Clear to auscultation, respirations even and unlabored. Heart: Regular rate and rhythm with no murmurs Abdomen: soft and nontender to palpation. No palpable hepatosplenomegaly. Bowel sounds positive in all quadrants. Extremities: diffuse muscle wasting over his extremities. Peripheral pulses in tact. Skin: Jaundice Neuro: awake, no focalizing motor deficits, generalized weakness psyche: flat affect Objective Last Vital Signs Temp 36.8 C 08/19/20 07:31 Pulse 72 08/19/20 07:31 Resp 17 08/19/20 07:31 BP 120/72 08/19/20 07:31 Pulse Ox 99 08/19/20 07:31 Laboratory Results - last 24 hr 08/17/20 08/18/20 08/19/20 23:55 13:52 06:35 PT Cancelled INR Cancelled Magnesium 1.7 L SARS-CoV-2 (PCR) Negative Nasopharyn COVID-19 PCR Not Applicable Ref Test Perform Site [facility] lab
[2020-08-19] MEDS: MAGNESIUM SULFATE 1 GM/100 ML BAG IVPB (09:53)
[2020-08-19 10:34] LABS: Ammonia 23 umol/L (11-32)
--- NOTE | 2020-08-19 10:59 | CMPROGNOTE_ITS ---
- If Service Date Differs Date of service: 08/19/20 Time of Service: 10:59 Care Management Progress Note S/O:Albino was lying in bed when CM met with him. He stated that he is not feeling well at all but is better than yesterday. Per report, Albino was very confused much of the day yesterday. Albino shared with CM his desire to go to rehab. It was a discussion that was held last admission but at that time Albino did not feel ready. Today he stated that he believes it is necessary. CM made contact with representatives from his insurance company to begin discussions about the feasibility of getting the stay covered. A: Misa is a 44 year old man admitted on 08/17/20 with hepatic encephalopathy P:Albino will likely discharge to a SNF ve [facility] for rehab. When discharged home he will follow up with his PCP and possibly with his transplant team in [place]. On his last admission Misa shared that he was no longer on a transplant list as he was unable/unwilling to go to [place] for a scheduled appointment due to fears of Covid. he feels he could be reinstated if he chooses, however. CM will continue to support misa and his discharge planning needs.
--- NOTE | 2020-08-19 11:50 | W.NUTRFU ---
Date of service: 08/19/20 Time of Service: 11:50 Nutritional Follow up NOTE: 44 year old male with end stage liver cirrhosis with PNA, subdural hematoma, encephalopathy, asicites with 20 lbs weight loss in last month. At high nutritional risk with severe protein calorie malnutrition with significantly impaired nutrient utilization, weight loss, loss of muscle mass and subcutaneous fat. Following renal diet with adequate intake to meet nutritional needs. At risk for skin breakdown as with ambulatory dysfunction at this time. Meeting nutrient needs at this time, will monitor labs, weight and po intake and make warranted recommendations. At this time, no protein restriction needed for symptom management. Time Spent in Nutritional Counseling and Treatment: 0
--- NOTE | 2020-08-19 12:40 | IN_ITS ---
Date of service: 08/19/20 Time of Service: 12:40 PT Notes Visit Reasons: HEPATIC ENCEPHALOPATHY Physical Therapy Inpatient Initial Evaluation Date: 08/19/2020 Referring Doctor: Zully Churchill NP PT Orders: PT CONSULT: Eval/treat Precautions: Fall. Standard. Activity as tolerated. Patient Profile/Admitting Diagnosis: José Manuel is a 44-year-old male with past medical history significant for heterozygous alpha-antitrypsin deficiency, and severe end-stage liver failure with diagnoses of subdural hematoma and acute hepatic encephaolopathy. 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 He states that he and his are in the process of divorce and he does not know how much help he can get once he is on his own. He states that he is looking for a place he can go to that can provide his needs. In the meantime, the ex- has agreed for him to go back while he is looking for another place to stay. Equipment Owned/DME: None previously owned Subjective: Agreeable to PT consult. Strongly considering SNF placement. Stresses that he does not to be a burden to his ex- when he goes home. Objective: General Observation: Supine in bed. Appeared withdrawn and tired. SOB with short distance ambulation. Looked to have more yellowing of eyes and skin. Mental Status: Alert and oriented x 4 Pain: None reported ROM: Right Upper Extremity: Shoulder Flexion WFL. Shoulder abduction WFL. Elbow flexion WFL. Wrist flexion WFL. Opening and closing of hand WFL. Left Upper Extremity: Shoulder Flexion WFL. Shoulder abduction WFL. Elbow flexion WFL. Wrist flexion WFL. Opening and closing of hand WFL. Right Lower Extremity: Hip flexion WFL. Hip abduction WFL. Knee flexion WFL. Ankle dorsiflexion WFL. Ankle plantarflexion WFL. Left Lower Extremity: Hip flexion WFL. Hip abduction WFL. Knee flexion WFL. Ankle dorsiflexion WFL. Ankle plantarflexion WFL. Strength: Right Upper Extremity: Shoulder flexors 4-/5. Shoulder abductors 4-/5. Elbow flexors 4/5. Elbow extensors 4-/5. [employer] Sales Professional strong. Left Upper Extremity: Shoulder flexors 4-/5. Shoulder abductors 4-/5. Elbow flexors 4/5. Elbow extensors 4-/5. [employer] Sales Professional strong. Right Lower Extremity: Hip flexors 3+/5. Hip abductors 4-/5. Knee flexors 4/5. Knee extensors 4-/5. Ankle dorsiflexors 4-/5. Ankle plantarflexors 4-/5. Left Lower Extremity: Hip flexors 3+/5. Hip abductors 4-/5. Knee flexors 4/5. Knee extensors 4-/5. Ankle dorsiflexors 4-/5. Ankle plantarflexors 4-/5. Sensation: Intact as to pain and pressure on bilateral lower extremities. Bed Mobility/Transfers: Rolling SBA Supine to sit SBA Sit to supine SBA Sit to stand SBA Stand to sit SBA Bed to chair SBA Gait: Guided patient through 100 feet of level surface ambulation using the FWW and CGA with report of B feet being weak. Gait pattern unremarkable except for reduced andrew. Balance: Static Sitting: Normal Dynamic Sitting: Normal Static Standing: Fair Dynamic Standing: Fair Special Tests: Mobility Limitations Standardized Measure [facility] AM-PAC 6 clicks Basic Mobility Inpatient Short Form: Raw Score: 22 CMS Score: 21% deficit Informed Consent/Education: Patient instructed in purpose of PT consult and plan of care. Assessment: José Manuel requires the use of a front-wheeled walker for all mobility ADL performance to reduce fall risk at home. He hopes to have a more consistent independent mobility level before he decides to go back home. He will need SNF placement to maximize his mobility level as he does not want to be a burden to his soon-to-be ex who he still plans on going home to once he is safe to do so. Patient presents with clinical signs and symptoms consistent with current/admitting diagnoses that have resulted to mobility limitations, gait instability, generalized weakness, and impairment of motor control as demonstrated by the following impairment level findings: 1. Decreased strength to B LE major muscle groups 2. Impaired standing balance 3. Impaired activity tolerance, easy fatigability (chronic problem) 4. Easy fatigability Impairments are contributing to the following functional limitations: 1. Inability to safely ambulate without assistive device 2. Increase completion time for mobility ADL performance 3. Increased fall risk 4. Inability to negotiate steps alone safely Patient is assessed as a 96747 moderate complexity based on the following: History: 44-year-old male with impairment level findings, functional limitations, and past medical history as indicated above Examination: Demonstrable impairment in strength, balance, and mobility level with underlying impairments and functional limitations as documented above Presentation:Evolving Decision Makin moderate complexity Goals: Goals X1 week 1. Supine-Sit independent 2. Sit-Supine independent 3. Sit-Stand independent 4. Stand-Sit independent 5. Bed-Chair independent 6. Chair-Bed independent 7. Independent gait on level surface with use of FWW for at least 300 feet without report of pain nor dyspnea 8. Independent stair negotiation while holding onto bilateral rails for at least 5 steps without report of pain nor dyspnea 9. Good static and dynamic standing balance/tolerance Plan of Care/Treatment Plan: 1-2x/day, 7 days/week x 1 week. Plan of care has been reviewed with the [employer]ER[employer] ANALYST providing the service under Physical Therapy direction. Initiate Physical Therapy intervention for strengthening, bed mobility, transfers, gait, stairs, balance training, use of assistive device. DISCHARGE RECOMMENDATIONS: Patient will benefit from [facility] facility placement for continued skilled physical therapy services in order to progress mobility level, strength, and balance in preparation for a safe discharge to home. TREATMENT CODE/TIME: 50851 x 25 minutes beginning at 12:40 PM. Thank you for the opportunity to participate in the care of this patient. Norma Weaver PT, DPT, CLT [facility] [place], [place]
[2020-08-20] VITALS (9 sets, daily range): BP systolic 116–128; BP diastolic 67–74; PULSE 65–78; RESP 16–18; TEMP 36.8–37.4; O2SAT 98–100
[2020-08-20 06:29] LABS: Abs Immature Grans 0.03 10^3/uL (0.0-0.06); Absolute Basophil Count 0.08 10^3/uL (0.0-0.2); Absolute Lymphocyte Count 0.97 10^3/uL (1.2-3.4); Basophils % 1.4; Immature Grans % 0.5; Lymphocytes % 16.9; Nucleated RBC 0 %; WBC 5.73 10^3/uL (4.4-10.8)
[2020-08-20 06:31] LABS: Absolute Eosinophil Count 0.13 10^3/uL (0.0-0.7); Absolute Monocyte Count 0.67 10^3/uL (0.1-0.8); Absolute Neutrophil Count 3.85 10^3/uL (1.2-6.7); Eosinophils % 2.3; HCT 24.5 % (40.0-50.0); HGB 8.3 g/dL (13.5-17.5); MCH 38.4 pg (27.0-33.0); MCHC 33.9 % (32.0-36.0); MCV 113.4 fL (80-95); MPV 10.3 fL (8.0-11.0); Monocytes % 11.7; Neutrophils % 67.2; RBC 2.16 10^6/uL (4.36-5.78); RDW 15.4 % (11.8-14.1); RDW-SD 63.9 fL
[2020-08-20 06:58] LABS: Magnesium 1.7 mg/dL (1.8-2.4)
[2020-08-20 07:01] LABS: ALT 23 U/L (16-63); AST 50 U/L (15-37); Albumin 1.6 g/dL (3.4-5.0); Alkaline Phosphatase 167 U/L (46-116); Anion Gap 2.6 mmol/L (3-11); BUN 11 mg/dL (7-18); Bilirubin, Total 9.6 mg/dL (0.2-1.0); CO2 26.4 mmol/L (21.0-32.0); CREATININE 0.91 mg/dL (0.70-1.30); Chloride 108 mmol/L (98-107); Glucose 109 mg/dL (74-106); Sodium 137 mmol/L (136-145); Total Protein 5.6 g/dL (6.4-8.2)
[2020-08-20 07:04] LABS: Anisocytosis 1+; Burr Cells (echinocyte) 2+; Diff Comment Diff Reviewed; Hypochromasia 2+; Macrocytosis 3+; Platelet Count 76 10^3/uL (130-400)
[2020-08-20 07:05] LABS: Poikilocytes 2+
[2020-08-20] MEDS: Omeprazole 20 MG CAPCR PO (07:50)
[2020-08-20] MEDS: Normal Saline Flush 10 ML SYR IVP (07:50)
--- NOTE | 2020-08-20 08:12 | OT.INIE ---
Occupational Therapy Notes Inpatient Occupational Therapy Evaluation Date: 08/20/20 Referring Doctor: Zully Churchill NP OT Orders: Non-Urgent Precautions: Fall, Standard, Full PATIENT PROFILE/ADMITTING DIAGNOSIS: Pt is a 44 year old male who was recently admitted to [facility]. He is admitted to Med Surg at this time for heterozygous alpha-antitrypsin deficiency, and severe end-stage liver failure with diagnoses of subdural hematoma and acute hepatic encephaolopathy. 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 He states that he believes he is fairly (I) at baseline, he is able to perform his dressing and bathing (I) and performs his bathing in a walk in shower. Pt reports that he is looking for a place to transition to that can (A) him with his needs. Equipment owned/DME: None SUBJECTIVE: Pt was lying in bed when OT arrived. He was agreeable to OT session and notes that he is tired and his plan is to go to the SNF to decrease the strain on his kids and family. OBJECTIVE: General Observation: Pleasant and able to answer questions appropriately, IV in (L) UE Mental Status: A&Ox3 Pain: no c/o pain ROM: RUE AROM WFL L UE AROM WFL STRENGTH: RUE 5/5 throughout globally LUE 5/5 throughout globally FUNCTIONAL MOBILITY/ADLS: Transfers with FWW BATHING sitting in bed with max (A) Set up/clean up Bathing UE (I) face, (B) UE and abdomen, max (A) back Bathing LE Pt denies DRESSING lying in bed Dressing UE Min (A) don and doffing hospital gown Dressing LE (I) with don and doffing pants with increased performance time. GROOMING sitting in bed, mod (A) brushing hair TOILETING NT EATING Sitting in bed with min (A) opening containers, (I) with food to mouth and cutting his food with utensils. No difficulty chewing or swallowing. BALANCE: Static sitting Good Dynamic Sitting Good SPECIAL TESTS: Daily Activity Limitations Standardized Measure [facility] AM -PAC ?6 clicks? Daily Activity Inpatient Short Form: Raw score: 16 Standardized score: 39.96 CMS score: 53.32% INFORMED CONSENT/EDUCATION: Pt instructed in purpose of OT Consult and plan of care. ASSESSMENT: Patient is a 44-year-old male referred to occupational therapy services with diagnosis of heterozygous alpha-antitrypsin deficiency, and severe end-stage liver failure with diagnoses of subdural hematoma and acute hepatic encephaolopathy. Patient presents with clinical signs and symptoms consistent with dx, as demonstrated by the following impairment level findings/ functional limitations: Decreased functional activity tolerance, decreased performance of standing ADLs, decreased functional mobility required for ADLS. [facility] score 16 Patient is assessed as a Low 03115 complexity based on the following: History: see above Examination: see functional limitations as noted above Presentation: evolving Decision Making: [facility] 16 GOALS Goals x1 week 1. Transfers (S) 2. Dressing sitting in chair (I) 3. Bathing Standing at sink (I) 4. Toileting on toilet (I) 5. Eating (I) PLAN OF CARE/TREATMENT PLAN: 1x/day, 5 days/ week x 1week Initiate Occupational Therapy Services for bathing, dressing, grooming, toileting, eating, transfer training. DISCHARGE RECOMMENDATIONS Based on pts current level of function and functional impairments, OT feels that pt would benefit from placement at SNF. TREATMENT TIME/MINUTES/CODES 57065, 92768, 35 minutes (07:35) ELIDIA Hobbs/[facility]
[2020-08-20] MEDS: Furosemide 40 MG TAB PO (08:30)
[2020-08-20] MEDS: Spironolactone 50 MG TAB PO (08:30)
[2020-08-20] MEDS: Lactulose 20 GM/30 ML CUP 30 GM PO ×4 (08:32→20:38)
--- NOTE | 2020-08-20 10:19 | PGE_ITS ---
Date of Service Date of service: 08/20/20 Time of Service: Assessment and Plan Assessment and plan (1) Acute hepatic encephalopathy: Status: Resolved Assessment and plan: resolved now back on medications continue to monitor for changes (2) Subdural hematoma: Status: Chronic Assessment and plan: By review with [facility] neurology the CT scan of the head upon admission appears stable. Continue to monitor. Patient does have a coagulopathy associated with his liver failure. (3) Alcoholic cirrhosis of liver with ascites: Status: Chronic Assessment and plan: Patient supposedly is on liver transplant list and should continue supportive care and symptomatic treatment with continued lactulose on a better schedule and at increased dosing. He will need 24-hour supervision for this to occur. Monitor labs as needed. Patient's CODE STATUS should be reviewed if liver transplant is not an eminent. Above case discussed with Dr. Hubbard who is in agreement. (4) Ambulatory dysfunction: Status: Acute Assessment and plan: patient with generalized weakness, and now able to participate with therapy PT/OT consult placed (5) Discharge planning issues: Status: Acute Assessment and plan: case management following [facility] level rehabilitation Subjective Subjective Patient reports: no new complaints, feels better, tolerating liquids well, tolerating a regular diet and bowel movement Interval history since last seen: working with PT and has been ambulating in the halls. mental status improved and likely at baseline. Exam Narrative Exam Narrative: General: Patient appears older than stated age, cachectic and jaundiced. He is oriented to person, place and situation HEENT: Normocephalic atraumatic. EOMI and sclera icteric. Oropharynx with dry mucosa. Neck: Supple without JVD. Lungs: Clear to auscultation, respirations even and unlabored. Heart: Regular rate and rhythm with no murmurs Abdomen: soft and nontender to palpation. No palpable hepatosplenomegaly. Bowel sounds positive in all quadrants. Extremities: diffuse muscle wasting over his extremities. Peripheral pulses intact. Skin: Jaundice Neuro: awake, no focalizing motor deficits, generalized weakness psyche: flat affect Objective Last Vital Signs Temp 37.0 C 08/20/20 07:16 Pulse 68 08/20/20 07:16 Resp 17 08/20/20 07:16 BP 116/68 08/20/20 07:16 Pulse Ox 98 08/20/20 07:16 Laboratory Results - last 24 hr 08/19/20 08/20/20 08/20/20 10:21 06:00 06:00 WBC RBC Hgb Hct MCV MCH MCHC RDW Plt Count MPV Immature Gran % Neutrophils % Lymphocytes % Monocytes % Eosinophils % Basophils % Nucleated RBC % Absolute Neutrophils Absolute Lymphocytes Absolute Monocytes Absolute Eosinophils Absolute Basophils RBC Morphology Hypochromasia Poikilocytosis Anisocytosis Macrocytosis Kenny Cells/Echinocytes Sodium 137 Potassium 4.0 Chloride 108 H Carbon Dioxide 26.4 Anion Gap 2.6 L BUN 11 Creatinine 0.91 Estimated GFR/1.73 m2 >= 60.00 Glucose 109 H Calcium 8.0 L Magnesium 1.7 L Total Bilirubin 9.6 H AST 50 H ALT 23 Alkaline Phosphatase 167 H Ammonia 23 Total Protein 5.6 L Albumin 1.6 L 08/20/20 06:00 WBC 5.73 RBC 2.16 L Hgb 8.3 L Hct 24.5 L MCV 113.4 H MCH 38.4 H MCHC 33.9 RDW 15.4 H Plt Count 76 L MPV 10.3 Immature Gran % 0.5 Neutrophils % 67.2 Lymphocytes % 16.9 Monocytes % 11.7 Eosinophils % 2.3 Basophils % 1.4 Nucleated RBC % 0 Absolute Neutrophils 3.85 Absolute Lymphocytes 0.97 L Absolute Monocytes 0.67 Absolute Eosinophils 0.13 Absolute Basophils 0.08 RBC Morphology See below Hypochromasia 2+ Poikilocytosis 2+ Anisocytosis 1+ Macrocytosis 3+ Twain Cells/Echinocytes 2+ Sodium Potassium Chloride Carbon Dioxide Anion Gap BUN Creatinine Estimated GFR/1.73 m2 Glucose Calcium Magnesium Total Bilirubin AST ALT Alkaline Phosphatase Ammonia Total Protein Albumin
--- NOTE | 2020-08-20 12:49 | PT.INTREAT ---
Date of service: 08/20/20 Time of Service: 10:00 PT Notes Visit Reasons: HEPATIC ENCEPHALOPATHY Inpatient Physical Therapy Treatment Note [facility] Date: 08/20/2020 PRECAUTIONS: Fall, activity as tolerated SUBJECTIVE: He states that he is feeling very tired today. He is pleasant and agreeable to participating in PT. His main concern today is that he would like to be placed at [facility] SNF as he feels that he will not be able to manage his care independently at home. OBJECTIVE: PAIN: No complaints of pain BED MOBILITY/TRANSFERS Supine-sit: I Sit-supine: I Sit-stand: S in a.m.; I in p.m. Stand-sit: S in a.m.; I in p.m. GAIT Assistive Device: FWW Weight bearing: Full Assist: SBA in a.m.; S in p.m. Distance: 200' in both a.m. and p.m. Deviation: Decreased andrew with increased distance, complaints of increased fatigue THEREX: Patient was instructed in a lower extremity strengthening program, while in a seated position, as per flow sheet. Patient required both visual and verbal cueing for proper exercise performance. He requires extra time to complete exercises due to fatigue and some minimal confusion. TOILETING: Patient toileted independently ASSESSMENT: Patient tolerated session with complaints of increased fatigue. He is able to demonstrate independence with bed mobility and transfers as well as toileting at this time. He would benefit from continued gait training and global strengthening, as tolerated, for improved activity tolerance. PLAN: Continue with gait training with least restrictive device and global strengthening for improved activity tolerance TREATMENT CODE/TIME: Session 1: 15 minutes; [id number] Session 2: 10 minutes; [id number]
--- NOTE | 2020-08-20 18:36 | CMPROGNOTE_ITS ---
- If Service Date Differs Date of service: 08/20/20 Time of Service: 18:36 Care Management Progress Note S/O:Albino was lying in bed when CM met with him. He stated that he is feeling better than yesterday and appears more awake, alert and talkative. Albino continues to verbalize his desire to go to rehab. He has asked to speak to CM several times today to find out if a determination had been made on the referral that was sent. So far he has only agreed to a referral to [facility] which was sent [facility] yesterday.. A: José Manuel is a 44 year old man admitted on 08/17/20 with hepatic encephalopathy P:Albino will likely discharge to a SNF ve -1 for rehab. A referral was sent to [facility] at his request. When discharged home he will follow up with his PCP and possibly with his transplant team in [place]. He will need to reschedule an appointment with the team in order to be placed back on the transplant list. CM will continue to support José Manuel and his discharge planning needs.
[2020-08-21] VITALS (8 sets, daily range): BP systolic 115–125; BP diastolic 63–78; PULSE 64–78; RESP 16–18; TEMP 36.3–37; O2SAT 97–99
--- NOTE | 2020-08-21 08:48 | OTTR_ITS ---
Date of service: 08/21/20 Time of Service: 08:15 Occupational Therapy Notes Occupational Therapy Inpatient Treatment Note Occupational Therapy Inpatient Treatment Note Date: 08/21/20 PRECAUTIONS: Fall, Standard, Full SUBJECTIVE: Pt was lying in bed when OT arrived. He states that he is looking forward to going to SNF to learn better medication management. He states that he has a follow up with his medical team in [place] in hopes to get back on the transplant list. He feels that everything is a little out of his control but would like to take everything one day at a time and is hopeful that once he gets a new liver that he will be able to function more (I) at that time. He speaks a lot of his two children today, he states that he misses them but they are his motivation to get better. OBJECTIVE: PAIN:no c/o pain FUNCTIONAL MOBILITY Rolling L/R: (I) Supine-sit: (I) Sit-supine: (I) BATHING: Sitting on side of the bed with max (A) Set up/clean up Upper Body: (I) face, (B) UE and abdomen Lower Body: (I) harris area and (B) LE DRESSING: sitting on side of the bed Upper Extremity: (I) donning shirt Lower Extremity: (I) don and doffing (B) shoes and pants with good technique GROOMING: (I) with brushing hair, although OT does (A) with putting pts hair up. EATING: (I) with eating routine. ASSESSMENT/PLAN: Goal is to transition pt to standing ADLs which OT does feel that he can tolerate at this time. He is notably tired today but he is looking forward to H&R to be more (I) in his medication management. TREATMENT CODES/TIME: [id number], 30 minutes (08:15) Teena White, OTR/L [facility]
[2020-08-21] MEDS: Omeprazole 20 MG CAPCR PO (09:04)
[2020-08-21] MEDS: Spironolactone 50 MG TAB PO (09:05)
[2020-08-21] MEDS: Furosemide 40 MG TAB PO (09:05)
[2020-08-21] MEDS: Lactulose 20 GM/30 ML CUP 30 GM PO ×4 (09:05→19:16)
--- NOTE | 2020-08-21 09:40 | PTTR_ITS ---
Date of service: 08/21/20 Time of Service: 08:30 PT Notes Visit Reasons: HEPATIC ENCEPHALOPATHY Inpatient Physical Therapy Treatment Note [facility] Date: 08/21/2020 PRECAUTIONS: Fall, activity as tolerated SUBJECTIVE: He states that he still feels very tired today. He is pleasant and agreeable to participating in PT. He does report that he feels better today. OBJECTIVE: Patient cleared to be independent with transfers and ambulation within his room, as agreed upon with nursing and [facility] [employer] [facility] hospitalist. PAIN: No complaints of pain BED MOBILITY/TRANSFERS Supine-sit: I Sit-supine: I Sit-stand: I Stand-sit: I Bed-chair: I Chair-bed: I GAIT Assistive Device: No AD Weight bearing: Full Assist: S Distance: 300' Deviation: Complaints of increased fatigue STAIRS: Up/down 3x4 and 2x6 using B rails and a step-over pattern, independently. ASSESSMENT: Patient tolerated session with complaints of increased fatigue. He is able to demonstrate independence with bed mobility and transfers as well as toileting at this time. He would benefit from global strengthening, as tolerated, for improved activity tolerance. PLAN: Continue with global strengthening for improved activity tolerance TREATMENT CODE/TIME: 10 minutes; 09143
--- NOTE | 2020-08-21 17:00 | PGE_ITS ---
Date of Service Date of service: 08/21/20 Time of Service: 17:00 Assessment and Plan Assessment and plan (1) Acute hepatic encephalopathy: Status: Resolved Assessment and plan: resolved now back on medications continue to monitor for changes no labs today or tomorrow needed at this time (2) Subdural hematoma: Status: Chronic Assessment and plan: By review with [facility] neurology the CT scan of the head upon admission appears stable. Continue to monitor. Patient does have a coagulopathy associated with his liver failure. (3) Alcoholic cirrhosis of liver with ascites: Status: Chronic Assessment and plan: Patient supposedly is on liver transplant list and should continue supportive care and symptomatic treatment with continued lactulose on a better schedule and at increased dosing. He will need 24-hour supervision for this to occur. Monitor labs as needed. Patient's CODE STATUS should be reviewed if liver transplant is not an eminent. Above case discussed with Dr. Hubbard who is in agreement. (4) Ambulatory dysfunction: Status: Acute Assessment and plan: patient with generalized weakness, and now able to participate with therapy PT/OT consult placed (5) Discharge planning issues: Status: Acute Assessment and plan: case management following [facility] level rehabilitation Subjective Subjective Patient reports: no new complaints, feels better, tolerating liquids well, tolerating a regular diet, voiding w/o difficulty, bowel movement and afebrile Interval history since last seen: patient continues to progress, now ambulating without assistive device. no c/o pain Exam Narrative Exam Narrative: General: Patient appears older than stated age, cachectic and jaundiced. He is oriented to person, place and situation HEENT: Normocephalic atraumatic. EOMI and sclera icteric. Oropharynx with dry mucosa. Neck: Supple without JVD. Lungs: Clear to auscultation, respirations even and unlabored. Heart: Regular rate and rhythm with no murmurs Abdomen: soft and nontender to palpation. No palpable hepatosplenomegaly. Bowel sounds positive in all quadrants. Extremities: diffuse muscle wasting over his extremities. Peripheral pulses intact. Skin: Jaundice Neuro: awake, no focalizing motor deficits, generalized weakness psyche: flat affect Objective Last Vital Signs Temp 36.5 C 08/21/20 15:34 Pulse 64 08/21/20 15:34 Resp 18 08/21/20 15:34 BP 117/70 08/21/20 15:34 Pulse Ox 99 08/21/20 15:34
--- NOTE | 2020-08-21 18:37 | PDOC.CMPRO ---
- If Service Date Differs Date of service: 08/21/20 Time of Service: 18:37 Care Management Progress Note /O:Jason was lying in bed when CM met with him. [facility] has declined to make José Manuel a bed offer and he expressed concern and disappointment about the decision. He agreed to have CM send a referral to the [facility] and this was done this afternoon. Both jason and his have voiced concerns about his safety at home and the difficulties of living in this arrangement since they will soon be . A: José Manuel is a 44 year old man admitted on 08/17/20 with hepatic encephalopathy P:Jason will likely discharge to a SNF ve -1 for rehab. A referral was sent to [facility] at his request. When discharged home he will follow up with his PCP and possibly with his transplant team in [place]. He will need to reschedule an appointment with the team in order to be placed back on the transplant list. CM will continue to support José Manuel and his discharge planning needs.
[2020-08-22 03:56] VITALS: BP 120/66; PULSE 70; RESP 17; TEMP 37.5; O2SAT 99
[2020-08-22 07:31] VITALS: BP 123/74; PULSE 69; RESP 18; TEMP 37.1; O2SAT 100
[2020-08-22] MEDS: Lactulose 20 GM/30 ML CUP 30 GM PO ×4 (08:25→19:16)
[2020-08-22] MEDS: Furosemide 40 MG TAB PO (08:26)
[2020-08-22] MEDS: Omeprazole 20 MG CAPCR PO (08:26)
[2020-08-22] MEDS: Spironolactone 50 MG TAB PO (08:26)
--- NOTE | 2020-08-22 09:36 | OTTR_ITS ---
Date of service: 08/22/20 Time of Service: 08:50 Occupational Therapy Notes Occupational Therapy Inpatient Treatment Note Date: 08/22/20 PRECAUTIONS: Fall, Standard, Full SUBJECTIVE: Pt states that he would like to shower today. He is agreeable to OT session and performance of his ADLs. OBJECTIVE: PAIN:no c/o pain FUNCTIONAL MOBILITY Rolling L/R: (I) Supine-sit: (I) Sit-supine: (I) BATHING: Sitting in shower Upper Body: (I) face, (B) UE and abdomen Lower Body: (I) harris area and (B) LE DRESSING: sitting on chair Upper Extremity: (I) donning shirt Lower Extremity: (I) don and doffing (B) shoes and pants with good technique GROOMING: (I) with brushing hair. EATING: (I) with eating routine. ASSESSMENT/PLAN: Pt tolerated standing and showering well, he will need a shower bench if he returns home for safety and energy conservation in the bathing routine. Based on pts functional (I), OT will assess pt tomorrow for further recommendations of ADLs and plan to discharge from skilled OT services. TREATMENT CODES/TIME: 45457, 15 minutes (08:50) Teena White OTR/[facility]
[2020-08-22 11:24] VITALS: BP 120/67; PULSE 70; RESP 18; TEMP 37; O2SAT 99
--- NOTE | 2020-08-22 12:17 | W.PM.PROGNOT ---
Date of Service Date of service: 08/22/20 Time of Service: 12:17 Assessment and Plan Assessment and plan (1) Acute hepatic encephalopathy: Status: Resolved Assessment and plan: resolved now back on medications continue to monitor for changes no labs today or tomorrow needed at this time (2) Subdural hematoma: Status: Chronic Assessment and plan: By review with [facility] [place] CT scan of the head upon admission appears stable. Continue to monitor. Patient does have a coagulopathy associated with his liver failure. (3) Alcoholic cirrhosis of liver with ascites: Status: Chronic Assessment and plan: Patient supposedly is on liver transplant list and should continue supportive care and symptomatic treatment with continued lactulose on a better schedule and at increased dosing. He will need 24-hour supervision for this to occur. Monitor labs as needed. Patient's CODE STATUS should be reviewed if liver transplant is not an eminent. (4) Ambulatory dysfunction: Status: Acute Assessment and plan: patient with generalized weakness, and now able to participate with therapy PT/OT consult placed (5) Discharge planning issues: Status: Acute Assessment and plan: case management following was hoping for a swing level rehabilitation but was declined for admission. plan will be to go home with home health services. Above case discussed with Dr. Hubbard who is in agreement. Subjective Subjective Patient reports: no new complaints, feels better, tolerating liquids well, tolerating a regular diet, voiding w/o difficulty, bowel movement and afebrile Interval history since last seen: patient continues to progress, now ambulating without assistive device. no c/o pain Exam Narrative Exam Narrative: General: Patient appears older than stated age, cachectic and jaundiced. He is oriented to person, place and situation HEENT: Normocephalic atraumatic. EOMI and sclera icteric. Oropharynx with dry mucosa. Neck: Supple without JVD. Lungs: Clear to auscultation, respirations even and unlabored. Heart: Regular rate and rhythm with no murmurs Abdomen: soft and nontender to palpation. No palpable hepatosplenomegaly. Bowel sounds positive in all quadrants. Extremities: diffuse muscle wasting over his extremities. Peripheral pulses intact. Skin: Jaundice Neuro: awake, no focalizing motor deficits, generalized weakness psyche: flat affect Objective Last Vital Signs Temp 37.0 C 08/22/20 11:24 Pulse 70 08/22/20 11:24 Resp 18 08/22/20 11:24 BP 120/67 08/22/20 11:24 Pulse Ox 99 08/22/20 11:24
--- NOTE | 2020-08-22 15:14 | PTTR_ITS ---
Date of service: 08/22/20 Time of Service: 08:50 PT Notes Visit Reasons: HEPATIC ENCEPHALOPATHY Inpatient Physical Therapy Treatment Note [facility] Date: 08/22/2020 PRECAUTIONS: Fall, activity as tolerated SUBJECTIVE: He reports that he feels better today. He feels that he is at his functional baseline. He is still concerned about going home versus a SNF. OBJECTIVE: Patient cleared to be independent with transfers and ambulation within his room, as agreed upon with nursing and [employer] hospitalist. PAIN: No complaints of pain BED MOBILITY/TRANSFERS Supine-sit: I Sit-supine: I Sit-stand: I Stand-sit: I Bed-chair: I Chair-bed: I GAIT Assistive Device: No AD Weight bearing: Full Assist: S Distance: 400' Deviation: THEREX: Patient was instructed in a LE strengthening program, performed in a standing position, as per flow sheet. He was issued a HEP packet with visual and written instructions for continued LE strengthening at an independent level. ASSESSMENT: Patient tolerated session without complaint. He continues to demonstrate independence with bed mobility and transfers and in-room ambulation at this time, as well as toileting. He would benefit from global strengthening, as tolerated, for improved activity tolerance. PLAN: Patient to continue strengthening program, via HEP TREATMENT CODE/TIME: 10 minutes; [id number]
--- NOTE | 2020-08-22 16:18 | PDOC.CMPRO ---
Care Management Progress Note S/O: [facility] Manuel's referral. José Manuel advocated for being able to return home. CM discussed with José Manuel and his (currently seperated) Lissa. Lissa verbalized concerns around medication compliance and barriers including José Manuel needing to manage his own doses and losing track; resulting in increased confusion and ultimately, re-admission. CM discussed options with Pharmacy, [facility], Alisha and [facility]. [facility] ordered lactulose to be dispensed in individual cups, Alisha reports prescription unable to be filled until tomorrow. CM reviewed discharge plan with Lissa and José Manuel, Lissa will discuss with immediate family this evening re: concerns central to José Manuel's return to the home and the impact on his health and their child's wellbeing. She will discuss with José Manuel this evening and connect with CM in the morning regarding determination. If José Manuel is unable to return home, it is likely other options (211) for housing will be explored; in a setting with access for home health RN. José Manuel reports his will require RCT transport in the event he returns to his 's home. CM continues to follow. A: José Manuel is a 44 year old man admitted on 08/17/20 with hepatic encephalopathy P: Undetermined discharge plan at this time. SNF referrals were declined. Possibility that José Manuel may return to his 's home with home health or need correction option with home health RN oversight. José Manuel reports he will need to discharge by Wednesday to follow up with his transplant team in [place]. CM will continue to support José Manuel and his discharge planning needs.
[2020-08-22 16:50] VITALS: BP 130/72; PULSE 77; RESP 18; TEMP 36.8; O2SAT 98
[2020-08-22 23:00] VITALS: BP 117/63; PULSE 74; RESP 16; TEMP 36.7; O2SAT 97
[2020-08-23] MEDS: Omeprazole 20 MG CAPCR PO (08:01)
[2020-08-23] MEDS: Lactulose 20 GM/30 ML CUP 30 GM PO ×3 (08:01→15:23)
[2020-08-23] MEDS: Furosemide 40 MG TAB PO (08:01)
[2020-08-23] MEDS: Spironolactone 50 MG TAB PO (08:01)
[2020-08-23 08:05] VITALS: BP 140/73; PULSE 82; RESP 16; TEMP 36.6; O2SAT 90
--- NOTE | 2020-08-23 08:08 | OT.INDS ---
Date of service: 08/23/20 Time of Service: 08:08 Occupational Therapy Notes Occupational Therapy Inpatient Discharge Summary Date: 08/23/20 Dates of Service: 08/20/20-08/23/20 Referring Doctor: Zully Churchill NP OT Orders: Non-Urgent Precautions: Fall, Standard, Full *This document serves as a summary of care, no skilled OT services were provided for this documentation* PATIENT PROFILE/ADMITTING DIAGNOSIS: Pt is a 44 year old male who was recently admitted to [facility]. He is admitted to Med Surg at this time for heterozygous alpha-antitrypsin deficiency, and severe end-stage liver failure with diagnoses of subdural hematoma and acute hepatic encephaolopathy. 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 He states that he believes he is fairly (I) at baseline, he is able to perform his dressing and bathing (I) and performs his bathing in a walk in shower. Pt reports that he is looking for a place to transition to that can (A) him with his needs. Equipment owned/DME: None SUBJECTIVE: NT OBJECTIVE: ROM: RUE AROM WFL L UE AROM WFL STRENGTH: RUE 5/5 throughout globally LUE 5/5 throughout globally FUNCTIONAL MOBILITY/ADLS: Transfers with FWW BATHING in shower with tub shower/shower bench Bathing UE (I) face, (B) UE and abdomen Bathing LE (I) harris area and (B) LE DRESSING sitting on side of the bed Dressing UE (I) don and doffing shirt Dressing LE (I) with don and doffing pants and socks GROOMING standing at sink (I) brushing hair and teeth TOILETING on toilet (I) EATING Sitting in bed with min (A) opening containers, (I) with food to mouth and cutting his food with utensils. No difficulty chewing or swallowing. BALANCE: Static sitting Good Dynamic Sitting Good ASSESSMENT: Patient is a 44-year-old male referred to occupational therapy services with diagnosis of heterozygous alpha-antitrypsin deficiency, and severe end-stage liver failure with diagnoses of subdural hematoma and acute hepatic encephalopathy. Pt has been seen for skilled OT services and is able to demonstrate increased (I) in his ADLs at this time. He is fatigued, however he is not sleeping well. He functionally is able to perform his ADLS at his baseline level of function. GOALS- All met 1. Transfers (S) 2. Dressing sitting in chair (I) 3. Bathing Standing at sink (I) 4. Toileting on toilet (I) 5. Eating (I) PLAN OF CARE/TREATMENT PLAN: Discharge from skilled OT services. DISCHARGE RECOMMENDATIONS Based on pts current level of function and functional impairments, OT feels that pt would benefit from placement at SNF vs. Home with HHOT for assessment of pts DME needs in the home setting to increase his functional (I). TREATMENT TIME/MINUTES/CODES N/A Teena White OTR/[facility]
[2020-08-23 11:38] VITALS: BP 163/70; PULSE 103; RESP 17; TEMP 36.6; O2SAT 98
--- NOTE | 2020-08-23 13:01 | W.PM.PROGNOT ---
Date of Service Date of service: 08/23/20 Time of Service: 13: Assessment and Plan Assessment and plan (1) Subdural hematoma: Start date: 08/23/20 Start time: 13:07 Status: Chronic Assessment and plan: By review with [facility] neurology the CT scan of the head upon admission appears stable. Continue to monitor. Patient does have a coagulopathy associated with his liver failure. (2) Alcoholic cirrhosis of liver with ascites: Start date: 08/23/20 Start time: 13:07 Status: Chronic Assessment and plan: Patient supposedly is on liver transplant list and should continue supportive care and symptomatic treatment with continued lactulose on a better schedule and at increased dosing. He will need 24-hour supervision for this to occur. Monitor labs as needed. Patient's CODE STATUS should be reviewed if liver transplant is not an eminent. (3) Ambulatory dysfunction: Start date: 08/23/20 Start time: 13:07 Status: Acute Assessment and plan: patient with generalized weakness, and now able to participate with therapy PT/OT consult placed Continue QID lactulose (4) Discharge planning issues: Status: Acute Assessment and plan: case management following was hoping for a swing level rehabilitation but was declined for admission. plan will be to go home with home health services, though is not allowing patient at home they are seperating and going through divorce. Above case discussed with Dr. Hubbard who is in agreement. Subjective Subjective Patient reports: no new complaints Interval history since last seen: does not want patient at home. Patient wants to be home. At this time is working on dispo for patient. Mentation is clear eating and drinking without difficulty. Exam Narrative Exam Narrative: General: Patient appears older than stated age, cachectic and jaundiced. He is oriented to person, place and situation HEENT: Normocephalic atraumatic. EOMI and sclera icteric. Oropharynx with dry mucosa. Neck: Supple without JVD. Lungs: Clear to auscultation, respirations even and unlabored. Heart: Regular rate and rhythm with no murmurs Abdomen: soft and nontender to palpation. No palpable hepatosplenomegaly. Bowel sounds positive in all quadrants. Extremities: diffuse muscle wasting over his extremities. Peripheral pulses intact. Skin: Jaundice Neuro: awake, no focalizing motor deficits, generalized weakness psyche: flat affect Objective Last Vital Signs Temp 36.6 C 08/23/20 11:38 Pulse 103 H 08/23/20 11:38 Resp 17 08/23/20 11:38 BP 163/70 H 08/23/20 11:38 Pulse Ox 98 08/23/20 11:38
--- NOTE | 2020-08-23 15:09 | DSE_ITS ---
Date of service: 08/23/20 Time of Service: 15:09 DS: Diagnosis Discharge Diagnosis (1) Subdural hematoma: Start date: 08/23/20 Start time: 15:09 Status: Chronic Asessment and Plan: By review with [facility] neurology the CT scan of the head upon admission appears stable. Continue to monitor. Patient does have a coagulopathy associated with his liver failure. (2) Alcoholic cirrhosis of liver with ascites: Start date: 08/23/20 Start time: 15:09 Status: Chronic Asessment and Plan: Patient supposedly is on liver transplant list and should continue supportive care and symptomatic treatment with continued lactulose on a better schedule and at increased dosing. He will need 24-hour supervision for this to occur. Monitor labs as needed. Patient's CODE STATUS should be reviewed if liver transplant is not an eminent. (3) Ambulatory dysfunction: Start date: 08/23/20 Start time: 15:10 Status: Acute Asessment and Plan: patient with generalized weakness, and now able to participate with therapy PT/OT consult placed Continue QID lactulose Discharge Plan Disposition Patient Disposition: HOME W/HOME HEALTH SERVICE Condition: Improving Discharge Details Reason For Visit: HEPATIC ENCEPHALOPATHY Admit Date/Time: 08/19/20 09:18 Admit Provider: Albert Wang Attending Provider: Albert Wang Primary Care Provider: Joaquin Soliz [facility] Course Hospital Course: This is a 44 yo male with a PMH of severe end-stage liver failure on transplant list, heterozygous alpha-1 antitrypsin deficiency and former alcohol abuse, esophageal varices, previous TIPS procedure. He presented to the ED with c/o R sided chest pain and GONZALES. He was noted to have chronic subdural hematomas on CT scan when in the ED on 08/04/2020; transferred to [facility]. He also had a UTI and PNA at that time. He developed an upper GI bleeed during that hospitalization; d/t coagulopathy from his liver failure. On admission he was obtunded severely confused, he had not picked up his doses of lactulose and came to ED with ammonia level of 57. Over course of treatment his mentation became clear with lactulose QID. He started to work with PT. He was ambulating without assitive device. He has a plan in place to make sure he is taking the lactulose as scheduled to prevent confusion he is being discharged home with services PT/OT RN [employer], He denies CP ,SOB, N/V/D> total time spent discharging 60 mins Home Meds and New Rx's Prescriptions: Continued furosemide 40 mg tablet 40 mg PO DAILY RF: 0 spironolactone 50 mg tablet 50 mg PO DAILY RF: 0 omeprazole 20 mg tablet,delayed release (DR/EC) 20 mg PO DAILY RF: 0 Changed lactulose 20 gram/30 mL Solution 20 g PO QID Qty: 100 RF: 3 Discharge Instructions Instructions: Cirrhosis (DC), Liver Transplant (DC), Jaundice (DC), Encephalopathy (DC) Additional Instructions: Take lactulose 4 times a day Follow up with PCP in 1-2 weeks Follow up with Neurology in 1 week regarding subdural hematomas Activity:: Activity as Tolerated Equipment/Supplies:: No Equipment Needed Diet:: Low Sodium Discharge Orders Discharge Orders: Discharge Order (Routine); Ordered 08/23/20 Ordered By: Jenae Ugalde DS: Summary Status at Discharge Functional status at discharge: independent ambulation Overall status at discharge: patient is progressing back to baseline Mental Status: mental status grossly normal Speech and Movement: speech and movement normal Mood: congruent mood Affect: normal affect Exam Narrative Exam Narrative: General: Patient appears older than stated age, cachectic and jaundiced. He is oriented to person, place and situation HEENT: Normocephalic atraumatic. EOMI and sclera icteric. Oropharynx with dry mucosa. Neck: Supple without JVD. Lungs: Clear to auscultation, respirations even and unlabored. Heart: Regular rate and rhythm with no murmurs Abdomen: soft and nontender to palpation. No palpable hepatosplenomegaly. Bowel sounds positive in all quadrants. Extremities: diffuse muscle wasting over his extremities. Peripheral pulses intact. Skin: Jaundice Neuro: awake, no focalizing motor deficits, generalized weakness psyche: flat affect Psych Mental Status: mental status grossly normal Speech and Movement: speech and movement normal Mood: congruent mood Affect: normal affect DS: Data Vitals/I&O Vitals and I&O: Vital Signs Temperature 36.6 C 08/23/20 11:38 Temperature Source Tympanic 08/23/20 11:38 Pulse 103 H 08/23/20 11:38 Pulse Rhythm Regular 08/23/20 07:27 Pulse 77 08/18/20 00:30 Respiratory Rate 17 01/22/21 11:38 Respiratory Effort Non-Labored 08/23/20 07:27 Respiratory Depth Normal 08/23/20 07:27 Respiratory Pattern Normal 08/23/20 07:27 Blood Pressure 163/70 H 08/23/20 11:38 Blood Pressure Mean 89 08/18/20 00:30 Blood Pressure Position Sitting 08/17/20 20:11 Pulse Oximetry 98 08/23/20 11:38 Oxygen Delivery Method Room Air 08/23/20 11:38 Oxygen Flow Rate 0 08/23/20 11:38 Pain Level 0 08/23/20 11:38 Comment 08/23/20 11:34 Intake & Output 08/22/20 08/23/20 08/23/20 23:59 11:59 23:59 Intake Total 520 / 760 360 / 840 480 / 840 Balance 520 / 760 360 / 840 480 / 840 Weight 69 kg Intake: Oral 520 / 760 360 / 840 480 / 840 Other: Urine Color Light Nimo Straw Straw Urine Appearance Clear Clear Clear Urine Odor Strong Normal Normal Comment Unable to assess volume, voided in toilet. Void x1 in the toilet. Void x1 in the toilet. 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
--- NOTE | 2020-08-23 15:19 | PDOC.HHF2F ---
Home Health Certification Home Health Certification: 1. Encounter Date and Reason I certify that ISAI REDDY was seen by Jenae Ugalde on 08/23/20 and that I had a [id number] encounter with this patient that meets the physician face to face encounter requirements. 2. Clinical Findings Supporting Skilled Need and Homebound Status I certify that home health services are medically necessary, include either intermittent chcf and/or physical/speech therapy, and that this patient is homebound in that absences from the home require considerable and taxing effort and are infrequent or of short duration, or are attributable to the need to receive medical care. [X] (a) Attached documentation from encounter provides clinical findings supporting skilled need and homebound status (including what assistance patient requires to leave the home). The encounter with the patient was in whole, or in part, for the following medical condition, which is the primary reason for home health care: HEPATIC ENCEPHALOPATHY Usp: Patient would benefit from nursing services for ADL, medication administration, etc. Physical Therapy: Patient would benefit from PT/OT for stability, gait and balance Patient would benefit from WATER TREATMENT PLANT MECHANIC for community support. Homebound: Unable to leave home without assitance. 3. Certification and Authentication I certify that I composed the above information based on my clinical judgement relating to this patient's medical condition and, if applicable, clinical findings communicated to me by the NPP or inpatient physician who performed the Home Health Referral. All further orders will be obtained through ___Anabel Soliz (Community Based Physician - PCP)
--- NOTE | 2020-08-23 16:15 | CMDISCH_ITS ---
- If Service Date Differs Date of service: 08/23/20 Time of Service: 16:15 LACE Index Scoring Tool - Questions: Length of Stay (in days): 3 Acuity (Admit via E.D.?): Yes Comorbidities: Liver or Renal Disease E.D. Visits: 5 - Answers: Total Score: 15 Risk of Readmission: High Risk Care Management Discharge Reason for Hospitalization: Hepatic Encephalopathy Discharge Plan: Albino will be discharged back to his 's house until he can find alternate living arrangements. He will have a resumption of home health services and transport with his via private vehicle. He has an appointment in [place] with his transplant team on Wednesday and has arranged a flight there through a special program. Albino will also follow up with his community providers. Patient/Family Education Needs: Discharge plan, limitations, Ask Me Three
--- NOTE | 2020-08-23 16:30 | INDS_ITS ---
Date of service: 08/28/20 PT Notes Visit Reasons: HEPATIC ENCEPHALOPATHY Physical Therapy Inpatient Discharge Summary Date: 08/23/2020 Dates of service: 08/19/2020 through 08/22/2020 This is a clinical summary of care provided on the duration of dates listed above. No charge was made in the completion of this documentation. Referring Doctor: Zully Churchill NP PT Orders: PT CONSULT: Eval/treat Precautions: Fall. Standard. Activity as tolerated. Patient Profile/Admitting Diagnosis: José Manuel is a 44-year-old male with past medical history significant for heterozygous alpha-antitrypsin deficiency, and severe end-stage liver failure with diagnoses of subdural hematoma and acute hepatic encephaolopathy. 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 He states that he and his are in the process of divorce and he does not know how much help he can get once he is on his own. He states that he is looking for a place he can go to that can provide his needs. In the meantime, the ex- has agreed for him to go back while he is looking for another place to stay. Equipment Owned/DME: None previously owned Subjective: NT. See most recent DRESS SHOE INSPECTOR notes. Objective: General Observation: NT. See most recent DRESS SHOE INSPECTOR notes. Mental Status: NT. See most recent DRESS SHOE INSPECTOR notes. Pain: NT. See most recent DRESS SHOE INSPECTOR notes. ROM: Right Upper Extremity: Shoulder Flexion WFL. Shoulder abduction WFL. Elbow flexion WFL. Wrist flexion WFL. Opening and closing of hand WFL. Left Upper Extremity: Shoulder Flexion WFL. Shoulder abduction WFL. Elbow flexion WFL. Wrist flexion WFL. Opening and closing of hand WFL. Right Lower Extremity: Hip flexion WFL. Hip abduction WFL. Knee flexion WFL. Ankle dorsiflexion WFL. Ankle plantarflexion WFL. Left Lower Extremity: Hip flexion WFL. Hip abduction WFL. Knee flexion WFL. Ankle dorsiflexion WFL. Ankle plantarflexion WFL. Strength: Right Upper Extremity: Shoulder flexors 4-/5. Shoulder abductors 4-/5. Elbow flexors 4/5. Elbow extensors 4-/5. Brine Mixer Operator strong. Left Upper Extremity: Shoulder flexors 4-/5. Shoulder abductors 4-/5. Elbow flexors 4/5. Elbow extensors 4-/5. Brine Mixer Operator strong. Right Lower Extremity: Hip flexors 3+/5. Hip abductors 4-/5. Knee flexors 4/5. Knee extensors 4-/5. Ankle dorsiflexors 4-/5. Ankle plantarflexors 4-/5. Left Lower Extremity: Hip flexors 3+/5. Hip abductors 4-/5. Knee flexors 4/5. Knee extensors 4-/5. Ankle dorsiflexors 4-/5. Ankle plantarflexors 4-/5. Sensation: Intact as to pain and pressure on bilateral lower extremities. Bed Mobility/Transfers: Rolling independent Supine to sit independent Sit to supine independent Sit to stand independent Stand to sit independent Bed to chair independent Gait: Up to 400 feet of level surface ambulation without an assistive device with full weight bearing. Balance: Static Sitting: Normal Dynamic Sitting: Normal Static Standing: Good Dynamic Standing: Good Assessment: José Manuel demonstrates significant functional mobility improvement during this episode of care as evidenced by goal status below. Goals: Goals X1 week 1. Supine-Sit independent MET 2. Sit-Supine independent MET 3. Sit-Stand independent MET 4. Stand-Sit independent MET 5. Bed-Chair independent MET 6. Chair-Bed independent MET 7. Independent gait on level surface with use of FWW for at least 300 feet without report of pain nor dyspnea MET 8. Independent stair negotiation while holding onto bilateral rails for at least 5 steps without report of pain nor dyspnea MET 9. Good static and dynamic standing balance/tolerance MET DISCHARGE RECOMMENDATIONS: Home when medically cleared by hospitalist. No equipment needs at this time. TREATMENT CODE/TIME: OR Thank you for the opportunity to participate in the care of this patient. Norma Weaver PT, DPT, CLT [facility] [place], [place]
== END 2020-08-23 15:58 | disposition home health service (06) | DRG 442 ==
LOC: ER 08-18 00:11 → MS 08-18 00:52
PROVIDERS: Nurse Practitioner Acute Care; Nurse Practitioner Family; Admitting Provider Family Medicine; Emergency Provider Physician Assistant; PCP Family Medicine; Visit Provider Family Medicine
DX: K72.00 Acute and subacute hepatic failure without coma (principal); I85.10 Secondary esophageal varices without bleeding; G96.08 Other cranial cerebrospinal fluid leak; D68.4 Acquired coagulation factor deficiency; R64 Cachexia; Z68.1 Body mass index [BMI] 19.9 or less, adult; S06.5X9S Traumatic subdural hemorrhage with loss of consciousness of unspecified duration, sequela; K70.31 Alcoholic cirrhosis of liver with ascites; F17.210 Nicotine dependence, cigarettes, uncomplicated; Z91.14 Patient's other noncompliance with medication regimen; R53.1 Weakness; R26.2 Difficulty in walking, not elsewhere classified
CPT/HCPCS: 36415; 80053; 82805; 93005; 97110; 97162; 97165; 97530; 97535; 99220; 99226; 99233; 99239; 99285; U0003; 70450; 71046; 80320; 81003; 81015; 82140; 83735; 84443; 84484; 85025; 85610; 85730; 93010; J3475